=== PATIENT | female | born 1950 | race Caucasian/White ===

== ENCOUNTER 2016-12-10 06:19 | Emergency (ER) | payer MEDICARE, OTHER ==
[~2016-12-10] VITALS: Ht 152.4 cm; Wt 115.0 kg
[2016-12-10 06:21] VITALS: BP 128/67; PULSE 85; RESP 16; TEMP 98.1; O2SAT 96
--- NOTE | 2016-12-10 08:10 | RADRPT ---
EXAM DATE/TIME: 12/10/2016 07:34 [facility] COMPARISON: No previous studies available for comparison. INDICATIONS : Right leg pain. MEDICAL HISTORY : Hypertension. Hearing loss. SURGICAL HISTORY : None. ENCOUNTER: Initial ACUITY: 1 day PAIN SCORE: 10/10 LOCATION: Right leg. TECHNIQUE: Venous ultrasound of the leg was performed from the inguinal ligament to the proximal calf. Real-natacha e, color Doppler and spectral tracing, compression and augmentation techniques were used. FINDINGS: There is normal compressibility of the deep venous system from the inguinal region to the proximal ca lf. No echogenic clot is seen in the lumen of the common femoral, femoral, popliteal, and posterior tibial veins. There is a normal response of the venous system to proximal and distal augmentation an d respiration. CONCLUSION: No evidence of deep venous thrombosis within the right lower extremity. Burton Booker MD on December 10, 2016 at 8:08 Board Certified Radiologist. This report was verified electronically.
--- NOTE | 2016-12-10 08:20 | PD ---
HPI Chief Complaint: Pain: Acute or Chronic Time Seen by Provider: 06:52 Travel History International Travel<30 days: No Contact w/Intl Traveler<30days: No Traveled to known affect area: No History of Present Illness HPI 66-year-old female arrives complaining of right lower leg pain for about 8 hours. There is a twisting-type quality primarily in the lower tib-fib area and in the region of the ankle mortise. She states it can be quite severe. She is able to ambulate however painful. She denies any excessive use or recent trauma. She has a history of arthritis and ibuprofen has not been much use at home. She was recently started on nabumetone by Dr Ta, which has offered minimal help. No fever. No history DVT. She reports the history of arthritis based on exam and history however denies any imaging history. PFSH Past Medical History Diminished Hearing: Yes ([facility]) Hypertension: Yes Tetanus Vaccination: Unknown ?: Not : 2 Para: 2 Past Surgical History Surgical History: No Previous Surgery Social History Alcohol Use: Yes ("VERY LIGHT") Tobacco Use: No Substance Use: No Allergies-Medications (Allergen,Severity, Reaction): Coded Allergies: Sulfa (Verified Allergy, Intermediate, 12/10/16) Reported Meds & Prescriptions Reported Meds & Active Scripts Active Lortab (Hydrocodone-Acetaminophen) 5-325 Mg Tab 1-2 Tab PO Q6H PRN Reported Atorvastatin (Atorvastatin Calcium) 10 Mg Tab 10 Mg PO HS Levothyroxine (Levothyroxine Sodium) 50 Mcg Tab 50 Mcg PO DAILY Pantoprazole (Pantoprazole Sodium) 20 Mg Tab 20 Mg PO DAILY Nabumetone 500 Mg Tab 500 Mg PO BID Lisinopril-Hctz 20-25 Mg Tab 1 Tab PO DAILY Review of Systems Except as stated in HPI: all other systems reviewed are Neg General / Constitutional: No: Fever Musculoskeletal: Positive: Pain Physical Exam Narrative GENERAL: 66-year-old female pleasant well-nourished well-developed ambulatory SKIN: Focused skin assessment warm/dry. HEAD: Atraumatic. Normocephalic. EYES: Pupils equal and round. No scleral icterus. No injection or drainage. ENT: No nasal bleeding or discharge. Mucous membranes pink and moist. NECK: Trachea midline. No JVD. CARDIOVASCULAR: Regular rate and rhythm. No murmur appreciated. RESPIRATORY: No accessory muscle use. Clear to auscultation. Breath sounds equal bilaterally. GASTROINTESTINAL: Abdomen soft, non-tender, nondistended. Hepatic and splenic margins not palpable. MUSCULOSKELETAL: No obvious deformities. No clubbing. No cyanosis. Right lower extremity appears to same his left lower extremity. There is no erythema induration crepitus warmth or asymmetry. Dorsalis pedis pulses are 2+ bilaterally. Area of maximal pain is along the anterolateral distal right tib- fib area and overlying the region of the dorsal lateral foot at about the fifth metatarsal. NEUROLOGICAL: Awake and alert. No obvious cranial nerve deficits. Motor grossly within normal limits. Normal speech. PSYCHIATRIC: Appropriate mood and affect; insight and judgment normal. Data Data Last Documented VS Vital Signs Date Time Temp Pulse Resp B/P Pulse Ox O2 Delivery O2 Flow Rate FiO2 12/10/16 06:21 98.1 85 16 128/67 96 Room Air Vital signs reviewed Orders Ankle, Complete ([id number]) (12/10/16 07:15) Foot, Complete ([id number]) (12/10/16 07:15) Tibia/Fibula (Ap/Lat) (12/10/16 07:15) Ice/Cold Pack (12/10/16 07:15) Us Leg Venous Doppler (12/10/16 ) Acetamin-Hydrocod 325-7.5 Mg (Meherrin 7.5 (12/10/16 08:30) MDM Medical Decision Making Medical Screen Exam Complete: Yes Emergency Medical Condition: Yes Differential Diagnosis Hairline fracture, DVT, arthritis, infection, arteriovenous disease, neuropathy Narrative Course RLE Duplex normal. Plain films of the tib-fib ankle and foot reveals soft tissue swelling without fracture. Results were discussed with patient. She is quite agreeable with our plan including pain control follow-up with podiatry. Pain control, RICE therapy, f/u podiatry Diagnosis Primary Impression: Right leg pain Additional Impression: Right foot pain Referrals: Delma Collazo DPM 2 days Primary Care Physician 2 days Additional Instructions: You have a choice when it comes to health care, and we are glad that you chose [facility]. Hopefully, we have met your expectations on today's visit. You are welcome to return to [facility] at any time, as we are committed to meeting the health care needs of our community. Med/Other Pt SpecificInfo: Prescription(s) given Scripts Hydrocodone-Acetaminophen (Lortab)5-325 Mg Tab1-2 Tab PO Q6H PRN (PAIN SCALE 6 TO 10) #20 TAB Ref 0 Prov:Ki Alex MD 12/10/16 Disposition: 01 DISCHARGE HOME Condition: Stable Ki Alex MD Dec 10, 2016 08:20
[2016-12-10] MEDS ORDERED: ACETAMINOPHEN/HYDROcodone 325 MG/7.5 MG TAB PO ONE (08:30)
[2016-12-10] MEDS ORDERED: LEVO50TA4 PO (08:35)
[2016-12-10] MEDS ORDERED: LISI20TA3 PO (08:35)
[2016-12-10] MEDS ORDERED: PANT20TA2 PO (08:35)
[2016-12-10] MEDS ORDERED: ATOR10TA15 PO (08:35)
[2016-12-10] MEDS ORDERED: NABU1TAB37 PO (08:35)
[2016-12-10] MEDS ORDERED: HYDR-3533 PO ×2 (09:02→09:25)
--- NOTE | 2016-12-10 09:43 | RADRPT ---
EXAM DATE/TIME: 12/10/2016 08:20 [facility] COMPARISON: No previous studies available for comparison. INDICATIONS : Right leg pain, no injury. MEDICAL HISTORY : Hypertension. SURGICAL HISTORY : None. ENCOUNTER: Initial ACUITY: 1 day PAIN SCORE: 9/10 LOCATION: Right lower leg FINDINGS: There is generalized soft tissue swelling without radiopaque foreign body or fracture. CONCLUSION: Generalized soft tissue swelling. Vijay Clarke MD FACR on December 10, 2016 at 9:40 Board Certified Radiologist. This report was verified electronically.
--- NOTE | 2016-12-10 09:44 | RADRPT ---
EXAM DATE/TIME: 12/10/2016 08:20 [facility] COMPARISON: No previous studies available for comparison. INDICATIONS : Right ankle pain, no injury. MEDICAL HISTORY : Hypertension. SURGICAL HISTORY : None. ENCOUNTER: Initial ACUITY: 1 day PAIN SCORE: 10/10 LOCATION: Right lateral ankle FINDINGS: Generalized soft tissue swelling is evident with mild degenerative changes. There is no radiopaque f oreign body or fracture. CONCLUSION: Soft tissue swelling without fracture. Vijay Clarke MD FACR on December 10, 2016 at 9:42 Board Certified Radiologist. This report was verified electronically.
--- NOTE | 2016-12-10 09:48 | RADRPT ---
EXAM DATE/TIME: 12/10/2016 08:21 [facility] COMPARISON: No previous studies available for comparison. INDICATIONS : Right foot pain, no injury. MEDICAL HISTORY : None. SURGICAL HISTORY : None. ENCOUNTER: Initial ACUITY: 1 day PAIN SCORE: 7/10 LOCATION: Right lateral foot FINDINGS: Moderate soft tissue swelling with degenerative changes. Fractures are not appreciated. CONCLUSION: Soft tissue swelling, negative for fracture. Vijay Clarke MD FACR on December 10, 2016 at 9:44 Board Certified Radiologist. This report was verified electronically.
== END 2016-12-10 09:38 | disposition home or self-care (01) ==
LOC: NEPC 06:19
DX: M79.661 Pain in right lower leg (principal); M79.671 Pain in right foot; I10 Essential (primary) hypertension; Z79.899 Other long term (current) drug therapy; Z88.2 Allergy status to sulfonamides
CPT/HCPCS: 73590; 73610; 73630; 93971

== ENCOUNTER 2017-06-02 18:32 | Inpatient (IN) | payer MEDICARE, MEDICAID ==
[~2017-06-02] VITALS: Ht 157.5 cm; Wt 123.4 kg
[~2017-06-02 18:32] MED LIST: ATOR10TA15 PO; HYDR-3533 PO; LEVO50TA4 PO; LISI20TA3 PO; NABU1TAB37 PO; PANT20TA2 PO
[2017-06-02 18:47] VITALS: BP 140/63; PULSE 107; RESP 18; TEMP 102.4; O2SAT 96
[2017-06-02] MEDS ORDERED: SODIUM CHLOR 0.9% 1000 ML INJ 1,000 ML IV ONE ×2 (18:50)
[2017-06-02] MEDS ORDERED: SODIUM CHLOR 0.9% 1000 ML INJ 700 ML IV ONE (18:50)
[2017-06-02] MEDS ORDERED: ACETAMINOPHEN 325 MG TAB PO ONE (19:00)
--- NOTE | 2017-06-02 19:01 | PD ---
HPI Chief Complaint: Cold / Flu Symptoms Time Seen by Provider: 18:45 Travel History International Travel<30 days: No Contact w/Intl Traveler<30days: No Traveled to known affect area: No History of Present Illness HPI The patient is a 66-year-old female who presents emergency department for subjective fevers and chills. The patient states her symptoms started yesterday was a generalized malaise, fatigue, and subjective fevers. The patient then developed chills. She does complain of mild dysuria, a mildly sore throat with a lesion on the superior right aspect of the oropharynx, and mild shortness of breath. The patient also complains of diffuse body aches. The patient does have a history of rheumatoid arthritis for which she takes gabapentin. The patient does note subjective fevers but has not checked her temperature with a thermometer. She does note nausea and vomiting, with several episodes of vomiting today. She denies any diarrhea, had a normal bowel movement earlier today. She does complain of mild epigastric pain that started after vomiting. She does have a previous history of cholecystectomy. Symptoms are moderate without any alleviating or exacerbating factors. She did not receive an influenza vaccination this year. She quit smoking 40 years ago. [facility] Past Medical History Diminished Hearing: Yes ([facility]) Hypertension: Yes : 2 Para: 2 Social History Alcohol Use: Yes ("VERY LIGHT") Tobacco Use: No Substance Use: No Allergies-Medications (Allergen,Severity, Reaction): Coded Allergies: Sulfa (Sulfonamide Antibiotics) (Unverified Allergy, Intermediate, ) fish oil (Verified Allergy, Intermediate, 06/02/17) Reported Meds & Prescriptions Reported Meds & Active Scripts Active Reported Gabapentin 400 Mg Cap 400 Cap PO QID Levothyroxine (Levothyroxine Sodium) 50 Mcg Tab 50 Mcg PO DAILY Pantoprazole (Pantoprazole Sodium) 20 Mg Tab 20 Mg PO DAILY Nabumetone 500 Mg Tab 500 Mg PO BID Lisinopril-Hctz 20-25 Mg Tab 1 Tab PO DAILY Review of Systems Except as stated in HPI: all other systems reviewed are Neg General / Constitutional: Positive: Fever, Chills HENT: Positive: Sore Throat Cardiovascular: Positive: Chest Pain or Discomfort Respiratory: Positive: Cough, Shortness of Breath Gastrointestinal: Positive: Nausea, Vomiting, Abdominal Pain (mild epigastric pain after vomiting), No: Diarrhea Genitourinary: Positive: Dysuria Musculoskeletal: Positive: Myalgias, Weakness Skin: No Rash Neurologic: No: Focal Abnormalities, Headache Physical Exam Narrative GENERAL: Awake, alert, pleasant 66-year-old female who appears her stated age and is in no acute respiratory distress. SKIN: Focused skin assessment warm/dry. HEAD: Atraumatic. Normocephalic. EYES: Pupils equal and round. No scleral icterus. No injection or drainage. ENT: No nasal bleeding or discharge. No visible teeth. Lesion on the superior right oropharynx which is slightly erythematous with a clear vesicle in the center. NECK: Trachea midline. No JVD. CARDIOVASCULAR: Regular, tachycardic with a heart rate of 105. RESPIRATORY: No accessory muscle use. Diminished breath sounds in the bases. GASTROINTESTINAL: Abdomen soft, obese, mild epigastric tenderness. Negative Olivo's. Negative McBurney's. Back: No CVA tenderness. MUSCULOSKELETAL: No obvious deformities. No clubbing. No cyanosis. No edema. NEUROLOGICAL: Awake and alert. No obvious cranial nerve deficits. Motor grossly within normal limits. Normal speech. PSYCHIATRIC: Appropriate mood and affect; insight and judgment normal. Data Data Last Documented VS Vital Signs Date Time Temp Pulse Resp B/P (MAP) Pulse Ox O2 Delivery O2 Flow Rate FiO2 06/02/17 21:10 101.7 102 18 128/57 (80) 97 Nasal Cannula 2.00 Orders Orders Sepsis Workup Initiated (06/02/17 ) Electrocardiogram (06/02/17 18:50) Complete Blood Count With Diff (06/02/17 18:50) Comprehensive Metabolic Panel (06/02/17 18:50) Lactic Acid Sepsis Protocol (06/02/17 18:50) Lipase (06/02/17 18:50) Ckmb (Isoenzyme) Profile (06/02/17 18:50) Troponin I (06/02/17 18:50) Urinalysis - C+S If Indicated (06/02/17 18:50) Influenzae A/B Antigen (06/02/17 18:50) Blood Culture (06/02/17 18:50) Chest, Single Ap (06/02/17 18:50) Blood Gas Venous (Vbg) (06/02/17 18:50) Blood Glucose (06/02/17 18:50) Ecg Monitoring (06/02/17 18:50) Iv Access Insert/Monitor (06/02/17 18:50) Oximetry (06/02/17 18:50) Oxygen Administration (06/02/17 18:50) Acetaminophen (Tylenol) (06/02/17 19:00) Sodium Chlor 0.9% 1000 Ml Inj (Ns 1000 M (06/02/17 18:50) Sodium Chlor 0.9% 1000 Ml Inj (Ns 1000 M (06/02/17 18:50) Sodium Chlor 0.9% 1000 Ml Inj (Ns 1000 M (06/02/17 18:50) Ct Abd/Pel W Iv Contrast(Rout) (06/02/17 ) CKMB (06/02/17 19:50) CKMB% (06/02/17 19:50) Iohexol 350 Inj (Omnipaque 350 Inj) (06/02/17 21:48) Labs Laboratory Tests Test 06/02/17 19:50 06/02/17 19:53 06/02/17 20:30 White Blood Count 23.5 TH/MM3 Red Blood Count 4.65 MIL/MM3 Hemoglobin 13.6 GM/DL Hematocrit 41.8 % Mean Corpuscular Volume 90.0 FL Mean Corpuscular Hemoglobin 29.2 PG Mean Corpuscular Hemoglobin Concent 32.4 % Red Cell Distribution Width 13.6 % Platelet Count 180 TH/MM3 Mean Platelet Volume 8.7 FL Neutrophils (%) (Auto) 89.6 % Lymphocytes (%) (Auto) 3.8 % Monocytes (%) (Auto) 6.1 % Eosinophils (%) (Auto) 0.3 % Basophils (%) (Auto) 0.2 % Neutrophils # (Auto) 21.1 TH/MM3 Lymphocytes # (Auto) 0.9 TH/MM3 Monocytes # (Auto) 1.4 TH/MM3 Eosinophils # (Auto) 0.1 TH/MM3 Basophils # (Auto) 0.1 TH/MM3 CBC Comment DIFF FINAL Differential Comment Blood Urea Nitrogen 18 MG/DL Creatinine 1.27 MG/DL Random Glucose 99 MG/DL Total Protein 7.6 GM/DL Albumin 3.4 GM/DL Calcium Level 8.9 MG/DL Alkaline Phosphatase 95 U/L Aspartate Amino Transf (AST/SGOT) 41 U/L Alanine Aminotransferase (ALT/SGPT) 34 U/L Total Bilirubin 0.6 MG/DL Sodium Level 137 MEQ/L Potassium Level 3.2 MEQ/L Chloride Level 101 MEQ/L Carbon Dioxide Level 27.0 MEQ/L Anion Gap 9 MEQ/L Estimat Glomerular Filtration Rate 42 ML/MIN Lactic Acid Level 2.1 mmol/L Total Creatine Kinase 150 U/L Creatine Kinase MB 1.5 NG/ML Troponin I LESS THAN 0.02 NG/ML Lipase 100 U/L Blood Gas Puncture Site IV Blood Gas Patient Temperature 98.6 Venous Blood pH 7.38 Venous Blood Partial Pressure CO2 52 mmHg Venous Blood Partial Pressure O2 22 mmHg Venous Blood HCO3 30 mmol/L Venous Blood Oxygen Saturation 31 % Venous Blood Oxygen Content 5.9 Vol % Venous Blood Base Excess 5.1 mmol/L Oxygen Delivery Device NASAL CANNULA Blood Gas Liter Flow 2 L/M Urine Color YELLOW Urine Turbidity CLEAR Urine pH 5.0 Urine Specific [place] 1.011 Urine Protein NEG mg/dL Urine Glucose (UA) NEG mg/dL Urine Ketones NEG mg/dL Urine Occult Blood NEG Urine Nitrite NEG Urine Bilirubin NEG Urine Urobilinogen LESS THAN 2.0 MG/DL Urine Leukocyte Esterase NEG Urine RBC 1 /hpf Urine WBC LESS THAN 1 /hpf Urine Hyaline Casts 1 /lpf Urine Granular Casts 1 /lpf Urine Mucus FEW /lpf Microscopic Urinalysis Comment CATH-CULT NOT IND MDM Medical Decision Making Medical Screen Exam Complete: Yes Emergency Medical Condition: Yes Medical Record Reviewed: Yes Interpretation(s) EKG reveals normal sinus rhythm with a rate in 91. No ischemic changes or ectopy noted. Last Impressions Chest X-Ray 06/02/17 1850 Signed Impressions: Service Date/Time: May 19:22 - CONCLUSION: 1. No infiltrates seen. 2. Cardiomegaly. Jose L Corley MD Laboratory Tests Test 06/02/17 19:50 06/02/17 19:53 06/02/17 20:30 White Blood Count 23.5 TH/MM3 Red Blood Count 4.65 MIL/MM3 Hemoglobin 13.6 GM/DL Hematocrit 41.8 % Mean Corpuscular Volume 90.0 FL Mean Corpuscular Hemoglobin 29.2 PG Mean Corpuscular Hemoglobin Concent 32.4 % Red Cell Distribution Width 13.6 % Platelet Count 180 TH/MM3 Mean Platelet Volume 8.7 FL Neutrophils (%) (Auto) 89.6 % Lymphocytes (%) (Auto) 3.8 % Monocytes (%) (Auto) 6.1 % Eosinophils (%) (Auto) 0.3 % Basophils (%) (Auto) 0.2 % Neutrophils # (Auto) 21.1 TH/MM3 Lymphocytes # (Auto) 0.9 TH/MM3 Monocytes # (Auto) 1.4 TH/MM3 Eosinophils # (Auto) 0.1 TH/MM3 Basophils # (Auto) 0.1 TH/MM3 CBC Comment DIFF FINAL Differential Comment Blood Urea Nitrogen 18 MG/DL Creatinine 1.27 MG/DL Random Glucose 99 MG/DL Total Protein 7.6 GM/DL Albumin 3.4 GM/DL Calcium Level 8.9 MG/DL Alkaline Phosphatase 95 U/L Aspartate Amino Transf (AST/SGOT) 41 U/L Alanine Aminotransferase (ALT/SGPT) 34 U/L Total Bilirubin 0.6 MG/DL Sodium Level 137 MEQ/L Potassium Level 3.2 MEQ/L Chloride Level 101 MEQ/L Carbon Dioxide Level 27.0 MEQ/L Anion Gap 9 MEQ/L Estimat Glomerular Filtration Rate 42 ML/MIN Lactic Acid Level 2.1 mmol/L Total Creatine Kinase 150 U/L Creatine Kinase MB 1.5 NG/ML Troponin I LESS THAN 0.02 NG/ML Lipase 100 U/L Blood Gas Puncture Site IV Blood Gas Patient Temperature 98.6 Venous Blood pH 7.38 Venous Blood Partial Pressure CO2 52 mmHg Venous Blood Partial Pressure O2 22 mmHg Venous Blood HCO3 30 mmol/L Venous Blood Oxygen Saturation 31 % Venous Blood Oxygen Content 5.9 Vol % Venous Blood Base Excess 5.1 mmol/L Oxygen Delivery Device NASAL CANNULA Blood Gas Liter Flow 2 L/M Urine Color YELLOW Urine Turbidity CLEAR Urine pH 5.0 Urine Specific [place] 1.011 Urine Protein NEG mg/dL Urine Glucose (UA) NEG mg/dL Urine Ketones NEG mg/dL Urine Occult Blood NEG Urine Nitrite NEG Urine Bilirubin NEG Urine Urobilinogen LESS THAN 2.0 MG/DL Urine Leukocyte Esterase NEG Urine RBC 1 /hpf Urine WBC LESS THAN 1 /hpf Urine Hyaline Casts 1 /lpf Urine Granular Casts 1 /lpf Urine Mucus FEW /lpf Microscopic Urinalysis Comment CATH-CULT NOT IND Last Impressions Chest X-Ray 06/02/17 1850 Signed Impressions: Service Date/Time: May 19:22 - CONCLUSION: 1. No infiltrates seen. 2. Cardiomegaly. Jose L Corley MD Abdomen/Pelvis CT 06/02/17 0000 Signed Impressions: Service Date/Time: May 21:36 - CONCLUSION: 1. No dilated loops of small or large bowel. 2. Nonspecific minimally prominent para-aortic lymph nodes. 3. Prominent bilateral fluid structures in the renal sinus bilaterally. Differential considerations include parapelvic cysts in bilateral hydronephrosis without stones. The patient will be brought back for delayed imaging of the kidneys to help differentiate. An addendum will be rendered. Jose L Corley MD Differential Diagnosis Differential diagnosis includes influenza, pneumonia, pyelonephritis, UTI, viral syndrome, sepsis, dehydration. Narrative Course IV was established, labs are drawn and sent, and the patient was placed on cardiac telemetry monitoring and continuous pulse oximetry monitoring. EKG was ordered and interpreted. Chest x-ray was obtained. UA was sent to lab. Influenza screen was sent to lab. The patient was administered Tylenol 650 mg orally and 3 L of IV fluids. VBG was obtained. The patient's white count was 23.5. Lactic acid was 2.1. UA is unremarkable. Influenza screen is negative. Chest x-ray reveals no evidence of pneumonia. Therefore, CT of the abdomen and pelvis was ordered to evaluate for intra-abdominal process. The patient does meet SIRS criteria. CT of the abdomen and pelvis reveals no acute source of infection. The patient does meet SIRS criteria, is immunocompromised with a history of rheumatoid arthritis, therefore, will be 23 hour observation until blood cultures are resulted. The patient is comfortable with this plan of care and disposition. The patient will be minutes the on-call medical service. The patient has been covered with Rocephin and Zithromax to cover for possible early pneumonia. Sepsis Criteria SIRS Criteria (2 or more): Temp > 100.9 or < 96.8, Heart rate over 90, WBC > 43374, < 4000 or > 10% bands Condition: Stable Fredis Casey MD Jun 02, 2017 19:01
[2017-06-02 19:06] VITALS: RESP 18; O2SAT 97
[2017-06-02 19:25] VITALS: O2SAT 97
--- NOTE | 2017-06-02 19:42 | RADRPT ---
EXAM DATE/TIME: 06/02/2017 19:22 [facility] COMPARISON: No previous studies available for comparison. INDICATIONS : Fever MEDICAL HISTORY : Hypertension. SURGICAL HISTORY : None. ENCOUNTER: Initial ACUITY: 4 - 6 days PAIN SCORE: 3/10 LOCATION: Bilateral chest FINDINGS: A single frontal view of the chest demonstrates the lungs to be symmetrically aerated and clear. The heart is enlarged. Both hemidiaphragms and the central bronchopulmonary markings are fairly well de lineated. CONCLUSION: 1. No infiltrates seen. 2. Cardiomegaly. Jose L Corley MD on June 02, 2017 at 19:39 Board Certified Radiologist. This report was verified electronically.
[2017-06-02] MEDS ORDERED: GABA400C5 PO (20:21)
[2017-06-02 20:24] LABS: AUTOMATED NEUTROPHIL # 21.1 TH/MM3 (1.8-7.7); BASOPHIL # 0.1 TH/MM3 (0-0.2); BASOPHIL % 0.2 % (0.0-2.0); EOSINOPHIL # 0.1 TH/MM3 (0-0.4); EOSINOPHIL % 0.3 % (0.0-4.0); HEMATOCRIT 41.8 % (35.0-46.0); HEMOGLOBIN 13.6 GM/DL (11.6-15.3); LYMPH % 3.8 % (9.0-44.0); LYMPHOCYTE # 0.9 TH/MM3 (1.0-4.8); MEAN CORPUSCULAR HEMOGLOBIN 29.2 PG (27.0-34.0); MEAN CORPUSCULAR HGB CONC 32.4 % (32.0-36.0); MEAN PLATELET VOLUME 8.7 FL (7.0-11.0); MONO % 6.1 % (0.0-8.0); MONOCYTE # 1.4 TH/MM3 (0-0.9); NEUT % 89.6 % (16.0-70.0); PLATELET COUNT 180 TH/MM3 (150-450); RED BLOOD COUNT 4.65 MIL/MM3 (4.00-5.30); RED CELL DISTRIBUTION WIDTH 13.6 % (11.6-17.2); WHITE BLOOD COUNT 23.5 TH/MM3 (4.0-11.0)
[2017-06-02 20:34] LABS: LACTIC ACID SEPSIS PROTOCOL 2.1 mmol/L (0.4-2.0)
[2017-06-02 20:41] LABS: ALBUMIN 3.4 GM/DL (3.4-5.0); AST (GOT) 41 U/L (15-37); BLOOD UREA NITROGEN 18 MG/DL (7-18); CALCIUM 8.9 MG/DL (8.5-10.1); CHLORIDE 101 MEQ/L (98-107); CREATININE 1.27 MG/DL (0.50-1.00); GLOMERULAR FILTRATION RATE 42 ML/MIN (>89); GLUCOSE,RANDOM 99 MG/DL (74-106); LIPASE 100 U/L (73-393); SODIUM (NA) 137 MEQ/L (136-145)
[2017-06-02 20:42] LABS: ALT (GPT) 34 U/L (10-53)
[2017-06-02 20:46] LABS: ALKALINE PHOSPHATASE 95 U/L (45-117); TOTAL BILIRUBIN ADULT 0.6 MG/DL (0.2-1.0); TOTAL PROTEIN 7.6 GM/DL (6.4-8.2); TROPONIN I LESS THAN 0.02 NG/ML (0.02-0.05)
[2017-06-02 20:56] LABS: BILIRUBIN, URINE NEG (NEG); BLOOD, URINE NEG (NEG); GLUCOSE,URINE NEG (NEG); HYALINE CAST, URINE 1 /lpf (RARE); KETONE, URINE NEG (NEG); MUCUS URINE FEW /lpf (OCC); NITRITE,URINE NEG (NEG); URINE COLOR YELLOW (YELLW/STRAW); URINE LEUKOCYTE ESTERASE NEG (NEG)
[2017-06-02 21:10] VITALS: BP 128/57; PULSE 102; RESP 18; TEMP 101.7; O2SAT 97
[2017-06-02] MEDS ORDERED: IOHEXOL 350 MG/ML 10 ML VIAL (for RAD DIAG) IVCONTRAST ONE (21:48)
--- NOTE | 2017-06-02 21:59 | RADRPT ---
EXAM DATE/TIME: 06/02/2017 21:36 This report includes an Addendum and supersedes previous reports for this exam. [facility] COMPARISON: No previous studies available for comparison. INDICATIONS : Fever, body aches, and dysuria. IV CONTRAST: 70 cc Omnipaque 350 (iohexol) IV ORAL CONTRAST: No oral contrast ingested. RADIATION DOSE: 16.86 CTDIvol (mGy) MEDICAL HISTORY : Hypertension. SURGICAL HISTORY : section. ENCOUNTER: Initial ACUITY: 1 day PAIN SCALE: 8/10 LOCATION: abdomen TECHNIQUE: Volumetric scanning of the abdomen and pelvis was performed. Using automated exposure control and ad justment of the mA and/or kV according to patient size, radiation dose was kept as low as reasonably achievable to obtain optimal diagnostic quality images. DICOM format image data is available electro nically for review and comparison. FINDINGS: LOWER LUNGS: The visualized lower lungs are clear. LIVER: Homogeneous density without lesion. There is no dilation of the biliary tree. Cholecystectomy. SPLEEN: Normal size without lesion. PANCREAS: Within normal limits. KIDNEYS: There are prominent bilateral low density structures in the collecting system and extrarenal pelvis b ilaterally, symmetric in appearance with abrupt transition point at the proximal ureters bilaterally. There is no contrast in the structures and cannot differentiate between parapelvic cysts and hydron ephrosis. No calcified stones. The ureters are normal in dimension. ADRENAL GLANDS: Within normal limits. VASCULAR: There is no aortic aneurysm. BOWEL/MESENTERY: No dilated loops of small or large bowel. ABDOMINAL WALL: Within normal limits. RETROPERITONEUM: There are a few scattered periaortic lymph nodes which measure up to 1.5 cm, nonspecific in appearanc e. No evidence of deep pelvic adenopathy or iliac adenopathy. BLADDER: Watson catheter in a nondistended bladder. REPRODUCTIVE: The uterus is anteverted. No evidence of free fluid. INGUINAL: Bilateral inguinal lymph nodes measure up to 1.6 cm in dimension, upper limits normal. MUSCULOSKELETAL: Small bone islands in the left medial iliac bone, and right posterior superior acetabular region. CONCLUSION: 1. No dilated loops of small or large bowel. 2. Nonspecific minimally prominent para-aortic lymph nodes. 3. Prominent bilateral fluid structures in the renal sinus bilaterally. Differential considerations include parapelvic cysts in bilateral hydronephrosis without stones. The patient will be brought [facility] for delayed imaging of the kidneys to help differentiate. An addendum will be rendered. Jose L Corley MD on June 02, 2017 at 21:50 Board Certified Radiologist. This report was verified electronically. ADDENDUM: The patient was brought back for delayed scanning of the kidneys. Axial and coronal reconstruction i mages were performed and demonstrate a normal dimension to the collecting system bilaterally. The lo w density areas seen in the renal sinus and extrarenal region are confirmed to be multiple parapelvic cysts. Jose L Corley MD on June 02, 2017 at 22:26 Board Certified Radiologist. This report was verified electronically.
[2017-06-02] MEDS ORDERED: AZITHROMYCIN INJ 500 MG in SODIUM CHLOR 0.9% 250 ML INJ 250 ML IV ONE (22:15)
[2017-06-02] MEDS ORDERED: cefTRIAXone INJ 1,000 MG in SODIUM CHLORIDE 0.9% INJ 100 ML IV ONE (22:15)
[2017-06-02] MEDS ORDERED: LACTULOSE SYRUP 20 GM/30 ML CUP PO PRN (22:30)
[2017-06-02] MEDS ORDERED: ONDANSETRON HCL 4 MG/2 ML VIAL IVP PRN (22:30)
[2017-06-02] MEDS ORDERED: SODIUM CHLORIDE 0.9% FLUSH 10 ML FLUSH IV FLUSH PRN (22:30)
[2017-06-02] MEDS ORDERED: BISACODYL 10 MG SUPP RECTAL PRN (22:30)
[2017-06-02] MEDS ORDERED: ACETAMINOPHEN 325 MG TAB PO PRN (22:30)
[2017-06-02] MEDS ORDERED: ACETAMINOPHEN/HYDROcodone 325 MG/5 MG TAB PO PRN (22:30)
[2017-06-02] MEDS ORDERED: MAGNESIUM HYDROXIDE SUSP 30 ML CUP PO PRN (22:30)
[2017-06-02] MEDS ORDERED: SENNOSIDES 8.6 MG TAB PO PRN (22:30)
--- NOTE | 2017-06-02 22:33 | HHI.HP ---
HPI Service [facility] Primary Care Physician Phil Ta M.D. Admission Diagnosis SIRS, febrile illness, leukocytosis Diagnoses: (1) SIRS (systemic inflammatory response syndrome) Diagnosis: Principal (2) Pharyngitis Diagnosis: Principal (3) Renal insufficiency Diagnosis: Principal (4) Hypokalemia Diagnosis: Principal (5) HTN (hypertension) Diagnosis: Principal Travel History International Travel<30 Days: No Contact w/Intl Traveler <30 Da: No Traveled to Known Affected Are: No History of Present Illness This is a 66-year-old female with a PMH of HTN, Rheumatoid Arthritis and Hypothyroidism who presented to ER with complaints of generalized weakness addition to subjective fevers/chills and sore throat x1 day. Denies cough, chest pain or sick contacts. On arrival, BP 140/63, HR 107, O2 sat 96% on RA, Temp 102.4. WBC 23.5. K+ 3.2. Creatinine 1.27, no previous labs for comparison. Lactic Acid 2.1. Pulmonary negative. UA negative. CXR with no acute infiltrates. CT Abd/Pelvis nonspecific minimally prominent periaortic lymph nodes, bilateral fluid structures renal sinuses bilaterally, possibly hydronephrosis, additional imaging showing no evidence of hydronephrosis. Influenza negative. S/p IVF, Rocephin/Zithro in ER. Review of Systems Except as stated in HPI: all other systems reviewed are Neg ROS: 14 point review of systems otherwise negative. Past Family Social History Past Medical History PMH: HTN, Rheumatoid Arthritis and Hypothyroidism Past Surgical History PAST SURGICAL HISTORY: Cholecystectomy, Allergies: Coded Allergies: Sulfa (Sulfonamide Antibiotics) (Unverified Allergy, Intermediate, ) fish oil (Verified Allergy, Intermediate, 06/02/17) Family History PAST FAMILY HISTORY: Reviewed. No h/o DM or CAD Social History PAST SOCIAL HISTORY: Occasional alcohol. Negative for tobacco or drugs. Physical Exam Vital Signs Vital Signs Date Time Temp Pulse Resp B/P (MAP) Pulse Ox O2 Delivery O2 Flow Rate FiO2 06/02/17 21:10 101.7 102 18 128/57 (80) 97 Nasal Cannula 2.00 06/02/17 19:25 97 Nasal Cannula 2.00 06/02/17 19:08 (88) 06/02/17 19:06 97 Nasal Cannula 2.00 06/02/17 19:06 18 97 Nasal Cannula 2.00 06/02/17 18:59 94 Nasal Cannula 2.00 06/02/17 18:47 102.4 107 18 140/63 (88) 96 Physical Exam PE: GENERAL: Pleasant middle-aged white female in no acute distress. HEENT: PERRLA, EOMI. No scleral icterus or conjunctival pallor. No lid lag or facial droop. Pharyngeal erythema, no exudates noted, small vesicular lesion right. CARDIOVASCULAR: Regular rate and rhythm. No obvious murmurs to auscultation. No chest tenderness to palpation. RESPIRATORY: No obvious rhonchi or wheezing. Clear to auscultation. Breath sounds equal bilaterally. GASTROINTESTINAL: Abdomen soft, non-tender, nondistended. BS normal. MUSCULOSKELETAL: Extremities without clubbing, cyanosis, or edema. No obvious deformities. NEUROLOGICAL: Awake, alert and oriented x4. No focal neurologic deficits. Moving both upper and lower extremities spontaneously. Laboratory Laboratory Tests Test 06/02/17 19:50 06/02/17 19:53 06/02/17 20:30 White Blood Count 23.5 Red Blood Count 4.65 Hemoglobin 13.6 Hematocrit 41.8 Mean Corpuscular Volume 90.0 Mean Corpuscular Hemoglobin 29.2 Mean Corpuscular Hemoglobin Concent 32.4 Red Cell Distribution Width 13.6 Platelet Count 180 Mean Platelet Volume 8.7 Neutrophils (%) (Auto) 89.6 Lymphocytes (%) (Auto) 3.8 Monocytes (%) (Auto) 6.1 Eosinophils (%) (Auto) 0.3 Basophils (%) (Auto) 0.2 Neutrophils # (Auto) 21.1 Lymphocytes # (Auto) 0.9 Monocytes # (Auto) 1.4 Eosinophils # (Auto) 0.1 Basophils # (Auto) 0.1 CBC Comment DIFF FINAL Differential Comment Blood Urea Nitrogen 18 Creatinine 1.27 Random Glucose 99 Total Protein 7.6 Albumin 3.4 Calcium Level 8.9 Alkaline Phosphatase 95 Aspartate Amino Transf (AST/SGOT) 41 Alanine Aminotransferase (ALT/SGPT) 34 Total Bilirubin 0.6 Sodium Level 137 Potassium Level 3.2 Chloride Level 101 Carbon Dioxide Level 27.0 Anion Gap 9 Estimat Glomerular Filtration Rate 42 Lactic Acid Level 2.1 Total Creatine Kinase 150 Creatine Kinase MB 1.5 Troponin I LESS THAN 0.02 Lipase 100 Blood Gas Puncture Site IV Blood Gas Patient Temperature 98.6 Venous Blood pH 7.38 Venous Blood Partial Pressure CO2 52 Venous Blood Partial Pressure O2 22 Venous Blood HCO3 30 Venous Blood Oxygen Saturation 31 Venous Blood Oxygen Content 5.9 Venous Blood Base Excess 5.1 Oxygen Delivery Device NASAL CANNULA Blood Gas Liter Flow 2 Urine Color YELLOW Urine Turbidity CLEAR Urine pH 5.0 Urine Specific [place] 1.011 Urine Protein NEG Urine Glucose (UA) NEG Urine Ketones NEG Urine Occult Blood NEG Urine Nitrite NEG Urine Bilirubin NEG Urine Urobilinogen LESS THAN 2.0 Urine Leukocyte Esterase NEG Urine RBC 1 Urine WBC LESS THAN 1 Urine Hyaline Casts 1 Urine Granular Casts 1 Urine Mucus FEW Microscopic Urinalysis Comment CATH-CULT NOT IND Date/Time Source Procedure Growth Status 06/02/17 19:10 Blood Peripheral Aerobic Blood Culture Pending Received 06/02/17 19:10 Blood Peripheral Anaerobic Blood Culture Pending Received 06/02/17 19:10 Nasal Aspirate Influenza Types A,B Antigen (SHAHEED) - Final NEGATIVE FOR FLU A AND B ANTIGEN.... Complete Result Diagram: 06/02/17194906/02/171949 Caprini VTE Risk Assessment Caprini VTE Risk Assessment: No/Low Risk (score <= 1) Caprini Risk Assessment Model Point Value = 1 Point Value = 2 Point Value = 3 Point Value = 5 Age 41-60 Minor surgery BMI > 25 kg/m2 Swollen legs Varicose veins or History of unexplained or recurrent spontaneous Oral contraceptives or hormone replacement Sepsis (< 1 month) Serious lung disease, including pneumonia (< 1 month) Abnormal pulmonary function Acute myocardial infarction Congestive heart failure (< 1 month) History of inflammatory bowel disease Medical patient at bed rest Age 61-74 Arthroscopic surgery Major open surgery (> 45 min) Laparoscopic surgery (> 45 min) Malignancy Confined to bed (> 72 hours) Immobilizing plaster cast Central venous access Age >= 75 History of VTE Family history of VTE Factor V Leiden Prothrombin [id number] Lupus anticoagulant Anticardiolipin antibodies Elevated serum homocysteine Heparin-induced thrombocytopenia Other congenital or acquired thrombophilia Stroke (< 1 month) Elective arthroplasty Hip, pelvis, or leg fracture Acute spinal cord injury (< 1 month) Prophylaxis Regimen Total Risk Factor Score Risk Level Prophylaxis Regimen 0-1 Low Early ambulation 2 Moderate Order ONE of the following: *Sequential Compression Device (SCD) *Heparin 5000 units SQ BID 3-4 Higher Order ONE of the following medications: *Heparin 5000 units SQ TID *Enoxaparin/Lovenox 40 mg SQ daily (WT < 150 kg, CrCl > 30 mL/min) *Enoxaparin/Lovenox 30 mg SQ daily (WT < 150 kg, CrCl > 10-29 mL/min) *Enoxaparin/Lovenox 30 mg SQ BID (WT < 150 kg, CrCl > 30 mL/min) AND/OR *Sequential Compression Device (SCD) 5 or more Highest Order ONE of the following medications: *Heparin 5000 units SQ TID (Preferred with Epidurals) *Enoxaparin/Lovenox 40 mg SQ daily (WT < 150 kg, CrCl > 30 mL/min) *Enoxaparin/Lovenox 30 mg SQ daily (WT < 150 kg, CrCl > 10-29 mL/min) *Enoxaparin/Lovenox 30 mg SQ BID (WT < 150 kg, CrCl > 30 mL/min) AND *Sequential Compression Device (SCD) Assessment and Plan Problem List: (1) SIRS (systemic inflammatory response syndrome) ICD Code: R65.10 - Systemic inflammatory response syndrome (SIRS) of non- infectious origin without acute organ dysfunction (2) Pharyngitis ICD Code: J02.9 - Acute pharyngitis, unspecified (3) Renal insufficiency ICD Code: N28.9 - Disorder of kidney and ureter, unspecified (4) Hypokalemia ICD Code: E87.6 - Hypokalemia (5) HTN (hypertension) ICD Code: I10 - Essential (primary) hypertension Assessment and Plan A/P: 1. SIRS: Temp 102.4, HR 107, WBC 23, Lactic Acid 2.1. Source-unclear. U/a negative, CXR w/ no acute findings, images reviewed by me, CT Abd/Pelvis w/ no source of infection, images reviewed. Influenza negative. S/p Blood Cultures, IVF, Rocephin/Zithro in ER. Follow up cultures, continue w/ IVF, repeat Lactic Acid normalized. Likely viral etiology, start Tamiflu. 2. Pharyngitis: c/o sore throat, +pharyngeal erythema, no exudates. IVF, Cepacol, Tamiflu. 3. Renal Insufficiency: Creatinine 1.27, no previous labs for comparison, presumably new. IVF for hydration, repeat labs in am. 4. Hypokalemia: K+ 3.2, will replace and recheck labs in am. 5. HTN: BP controlled. On Lisinopril/HCTZ at home, will hold in light of renal insufficiency/dehydration. Monitor BP. 6. DVT Prophylaxis: SCD/Teds. 7. Social work for d/c planning as needed. 8. Case discussed w/ ER physician at length. Physician Certification 2 Midnight Certification Type: Admission for Inpatient Services Order for Inpatient Services The services are ordered in accordance with Medicare regulations or non- Medicare payer requirements, as applicable. In the case of services not specified as inpatient-only, they are appropriately provided as inpatient services in accordance with the 2-midnight benchmark. Estimated LOS (days): 2 days is the estimated time the patient will need to remain in the hospital, assuming treatment plan goals are met and no additional complications. Post-Hospital Plan: Not yet determined Marizol Gaines MD Jun 02, 2017 22:33
--- NOTE | 2017-06-02 23:29 | EKG ---
Date Performed: 06/02/2017 Time Performed: 19:34:20 PTAGE: 66 years EKG: Sinus rhythm ST/T WAVE CHANGES ANTERIORLY, CONSIDER ISCHEMIA NO PREVIOUS TRACING DOCTOR: Joe Alex Interpretating Date/Time 06/02/2017 23:28:11
[2017-06-02] MEDS ORDERED: BENZOCAINE-MENTHOL (SUGAR FREE) 15 MG-3.6 MG LOZENGE BUCCAL PRN (23:45)
[2017-06-03] VITALS (10 sets, daily range): BP systolic 91–130; BP diastolic 48–75; PULSE 78–92; RESP 18–20; TEMP 97.3–100.7; O2SAT 94–99
[2017-06-03] MEDS ORDERED: POTASSIUM CHLORIDE INJ 20 MEQ in SODIUM CHLORIDE 0.9% INJ 100 ML IV ONE ×2
[2017-06-03] MEDS: SODIUM CHLOR 0.9% 1000 ML INJ 1,000 ML IV SCH ×3 (01:30→20:07)
[2017-06-03] MEDS: OSELTAMIVIR PHOSPHATE 75 MG CAP PO SCH ×3 (02:02→20:14)
[2017-06-03] MEDS: MORPHINE SULFATE 2 MG/ML INJ IV PUSH PRN ×3 (02:03→18:26)
[2017-06-03] MEDS ORDERED: SODIUM CHLORID 0.9% 500 ML INJ 500 ML IV ONE (05:30)
[2017-06-03] MEDS: LEVOTHYROXINE SODIUM 50 MCG TAB PO SCH (05:50)
[2017-06-03] MEDS: SODIUM CHLORIDE 0.9% FLUSH 10 ML FLUSH IV FLUSH SCH ×2 (09:00→20:07)
[2017-06-03] MEDS ORDERED: INFLUENZA VIRUS VACCINE (QUADRIVALENT) 0.5 ML SYR IM ONE (09:00)
[2017-06-03] MEDS: NABUMETONE 500 MG TAB PO SCH ×2 (09:57→20:14)
[2017-06-03] MEDS: PANTOPRAZOLE SOD 20 MG DELAYED RELEASE TAB PO SCH (09:57)
[2017-06-03] MEDS: GABAPENTIN 400 MG CAP PO SCH ×4 (09:57→20:14)
[2017-06-03] MEDS: DOCUSATE SODIUM 50 MG/SENNA 8.6 MG TAB PO SCH ×2 (09:57→20:14)
[2017-06-03 10:30] LABS: AUTOMATED NEUTROPHIL # 23.1 TH/MM3 (1.8-7.7); BASOPHIL % 0.2 % (0.0-2.0); EOSINOPHIL % 0.1 % (0.0-4.0); HEMATOCRIT 33.9 % (35.0-46.0); HEMOGLOBIN 11.3 GM/DL (11.6-15.3); LYMPH % 4.2 % (9.0-44.0); LYMPHOCYTE # 1.1 TH/MM3 (1.0-4.8); MEAN CELL VOLUME 90.5 FL (80.0-100.0); MEAN CORPUSCULAR HEMOGLOBIN 30.3 PG (27.0-34.0); MEAN CORPUSCULAR HGB CONC 33.5 % (32.0-36.0); MONO % 4.4 % (0.0-8.0); MONOCYTE # 1.1 TH/MM3 (0-0.9); NEUT % 91.1 % (16.0-70.0); PLATELET COUNT 163 TH/MM3 (150-450); RED BLOOD COUNT 3.74 MIL/MM3 (4.00-5.30); RED CELL DISTRIBUTION WIDTH 13.6 % (11.6-17.2); WHITE BLOOD COUNT 25.4 TH/MM3 (4.0-11.0)
[2017-06-03 11:05] LABS: ALBUMIN 2.7 GM/DL (3.4-5.0); ALKALINE PHOSPHATASE 67 U/L (45-117); ALT (GPT) 31 U/L (10-53); AST (GOT) 30 U/L (15-37); BICARBONATE 24.3 MEQ/L (21.0-32.0); BLOOD UREA NITROGEN 27 MG/DL (7-18); CALCIUM 7.9 MG/DL (8.5-10.1); CHLORIDE 105 MEQ/L (98-107); CREATININE 1.18 MG/DL (0.50-1.00); GLOMERULAR FILTRATION RATE 46 ML/MIN (>89); GLUCOSE,RANDOM 114 MG/DL (74-106); SODIUM (NA) 137 MEQ/L (136-145); TOTAL BILIRUBIN ADULT 0.5 MG/DL (0.2-1.0); TOTAL PROTEIN 6.3 GM/DL (6.4-8.2)
[2017-06-03 11:25] LABS: BANDS 7 % (0-6); LYMPHOCYTES 13 % (9-44); METAMYELOCYTES 1 % (0-1); MONOCYTES 1 % (0-8); MYELOCYTES 1 % (0-0); NEUTROPHIL # MANUAL DIFF 21.8 TH/MM3 (1.8-7.7); POLYS (SEG NEUTROPHILS) 77 % (16-70); TOXIC GRANULATION 1+ (NORMAL); TOXIC VACUOLATION PRESENT (NONE SEEN)
--- NOTE | 2017-06-03 14:24 | HHI.PR ---
Subjective Remarks Feeling slightly better in her throat, complain of "I can't Pee "however denied any dysuria or burning, patient doesn't use oxygen at home however she is on 3 L nasal cannula now, she has some wheezing she denied history of smoking G had a temp of 100.7 and will be see increased to 25K Objective Vitals Vital Signs Date Time Temp Pulse Resp B/P (MAP) Pulse Ox O2 Delivery O2 Flow Rate FiO2 06/03/17 12:00 99.0 84 20 110/59 (76) 96 06/03/17 08:00 99.6 89 20 130/75 (93) 94 06/03/17 05:59 97 Nasal Cannula 3.00 06/03/17 04:00 85 20 104/65 (78) 06/03/17 04:00 100.7 82 18 105/54 (71) 96 06/03/17 01:28 97.3 90 20 107/63 (78) 97 06/03/17 01:07 06/03/17 00:01 92 102/48 (66) 97 Nasal Cannula 2.00 06/03/17 00:00 99.7 84 18 91/55 (67) 98 06/02/17 21:10 101.7 102 18 128/57 (80) 97 Nasal Cannula 2.00 06/02/17 19:25 97 Nasal Cannula 2.00 06/02/17 19:08 (88) 06/02/17 19:06 97 Nasal Cannula 2.00 06/02/17 19:06 18 97 Nasal Cannula 2.00 06/02/17 18:59 94 Nasal Cannula 2.00 06/02/17 18:47 102.4 107 18 140/63 (88) 96 I/O 06/02/17 06/02/17 06/02/17 06/03/17 06/03/17 06/03/17 07:00 15:00 23:00 07:00 15:00 23:00 Intake Total 2000 ml 210 ml 500 ml Output Total 250 ml Balance 2000 ml -40 ml 500 ml Intake IV Total 2000 ml 210 ml 500 ml Output Urine Total 250 ml Result Diagram: 06/03/17 1013 06/03/17 1013 Objective Remarks - - - GENERAL: This is a well-nourished, well-developed patient, in no apparent distress. SKIN: No rashes, warm and dry HEAD: Atraumatic. Normocephalic. EYES: Pupils equal round and reactive. Extraocular motions intact. No scleral icterus. ENT: Engorged pharyngeal without clear exudate, no significant lymph node NECK: Trachea midline. Supple CARDIOVASCULAR: Regular rate and rhythm without murmurs, gallops, or rubs. RESPIRATORY: Fair air entry bilaterally. No wheezes, rales, or rhonchi. GASTROINTESTINAL: Abdomen soft, non-tender, nondistended. Positive bowel sounds MUSCULOSKELETAL: Extremities without clubbing, cyanosis, or edema. Pedal pulses appreciated NEUROLOGICAL: Awake and alert. Moves all extremity. Normal speech.no focal neurological deficit A/P Problem List: (1) SIRS (systemic inflammatory response syndrome) ICD Code: R65.10 - Systemic inflammatory response syndrome (SIRS) of non- infectious origin without acute organ dysfunction (2) Pharyngitis ICD Code: J02.9 - Acute pharyngitis, unspecified (3) Renal insufficiency ICD Code: N28.9 - Disorder of kidney and ureter, unspecified (4) Hypokalemia ICD Code: E87.6 - Hypokalemia (5) HTN (hypertension) ICD Code: I10 - Essential (primary) hypertension Assessment and Plan 06/03: Patient still having fever 100.7 documented, max 102.4, WBC increased to 25K with neutrophils 91%, lactic acid dropped from 2.1-1.8, creatinine improved from 1.27-1.18 I will hold her swab culture of the throat, monoscreen, will consider ID consultation Also if continued to run fever will need to consider CT of the pharyngeal and the neck rule out abscess Initial admitting A/P: 1. SIRS: Temp 102.4, HR 107, WBC 23, Lactic Acid 2.1. Source-unclear. U/a negative, CXR w/ no acute findings, images reviewed by me, CT Abd/Pelvis w/ no source of infection, images reviewed. Influenza negative. S/p Blood Cultures, IVF, Rocephin/Zithro in ER. Follow up cultures, continue w/ IVF, repeat Lactic Acid normalized. Likely viral etiology, start Tamiflu. 2. Pharyngitis: c/o sore throat, +pharyngeal erythema, no exudates. IVF, Cepacol, Tamiflu. 3. KERVIN: Creatinine 1.27, no previous labs for comparison, presumably new. IVF for hydration, repeat labs in am. 4. Hypokalemia: K+ 3.2, will replace and recheck labs in am. 5. HTN: BP controlled. On Lisinopril/HCTZ at home, will hold in light of renal insufficiency/dehydration. Monitor BP. 6. DVT Prophylaxis: SCD/Teds. Lela Ruelas MD Jun 03, 2017 14:24
[2017-06-03] MEDS ORDERED: AZITHROMYCIN INJ 500 MG in SODIUM CHLOR 0.9% 250 ML INJ 250 ML IV SCH (21:00)
[2017-06-03] MEDS ORDERED: cefTRIAXone INJ 1,000 MG in SODIUM CHLORIDE 0.9% INJ 100 ML IV SCH (22:00)
[2017-06-04] VITALS (7 sets, daily range): BP systolic 112–118; BP diastolic 56–80; PULSE 65–137; RESP 19–22; TEMP 96.4–98.2; O2SAT 92–97
[2017-06-04] MEDS: RESP: ALBUTEROL 2.5 MG/IPRATROPIUM 0.5 MG NEB (PRN) NEB (00:10)
[2017-06-04] MEDS: SODIUM CHLOR 0.9% 1000 ML INJ 1,000 ML IV SCH ×2 (04:40→14:30)
[2017-06-04] MEDS: LEVOTHYROXINE SODIUM 50 MCG TAB PO SCH (06:42)
[2017-06-04] MEDS: MORPHINE SULFATE 2 MG/ML INJ IV PUSH PRN ×2 (06:44→20:47)
[2017-06-04] MEDS: OSELTAMIVIR PHOSPHATE 75 MG CAP PO SCH ×2 (09:15→20:28)
[2017-06-04] MEDS: NABUMETONE 500 MG TAB PO SCH ×2 (09:15→20:28)
[2017-06-04] MEDS: GABAPENTIN 400 MG CAP PO SCH ×4 (09:15→20:28)
[2017-06-04] MEDS: PANTOPRAZOLE SOD 20 MG DELAYED RELEASE TAB PO SCH (09:15)
[2017-06-04] MEDS: DOCUSATE SODIUM 50 MG/SENNA 8.6 MG TAB PO SCH ×2 (09:15→20:29)
[2017-06-04] MEDS: SODIUM CHLORIDE 0.9% FLUSH 10 ML FLUSH IV FLUSH SCH (09:16)
--- NOTE | 2017-06-04 11:23 | HHI.PR ---
Subjective Remarks Today patient was complaining of left lower extremity redness and swelling which was not exist yesterday, in which can explain her leukocytosis and fever Not much of a sore throat today, no neck pain or lymphadenopathy Objective Vitals Vital Signs Date Time Temp Pulse Resp B/P (MAP) Pulse Ox O2 Delivery O2 Flow Rate FiO2 06/04/17 08:00 97.8 122 19 112/75 (87) 95 06/04/17 04:00 98.2 80 20 118/66 (83) 95 06/04/17 00:14 97 Nasal Cannula 1.00 06/04/17 00:01 86 06/03/17 21:18 99.8 82 20 113/58 (76) 95 06/03/17 20:15 100 Nasal Cannula 1.00 06/03/17 19:37 78 06/03/17 18:34 96 1.00 06/03/17 17:00 1.00 06/03/17 16:00 98.0 80 18 111/59 (76) 99 06/03/17 15:00 98 2.00 06/03/17 12:00 99.0 84 20 110/59 (76) 96 I/O 06/03/17 06/03/17 06/03/17 06/04/17 06/04/17 06/04/17 07:00 15:00 23:00 07:00 15:00 23:00 Intake Total 210 ml 1500 ml 1190 ml 1000 ml Output Total 250 ml Balance -40 ml 1500 ml 1190 ml 1000 ml Intake Oral 840 ml IV Total 210 ml 1500 ml 350 ml 1000 ml Output Urine Total 250 ml # Voids 4 # Bowel Movements 1 Result Diagram: 06/03/17 1013 06/03/17 1013 Objective Remarks - - - GENERAL: This is a well-nourished, well-developed patient, in no apparent distress. SKIN: No rashes, warm and dry HEAD: Atraumatic. Normocephalic. EYES: Pupils equal round and reactive. Extraocular motions intact. No scleral icterus. ENT: Engorged pharyngeal without clear exudate, no significant lymph node NECK: Trachea midline. Supple CARDIOVASCULAR: Regular rate and rhythm without murmurs, gallops, or rubs. RESPIRATORY: Fair air entry bilaterally. No wheezes, rales, or rhonchi. GASTROINTESTINAL: Abdomen soft, non-tender, nondistended. Positive bowel sounds MUSCULOSKELETAL: Left lower extremity erythema warmth and swelling consistent with cellulitis NEUROLOGICAL: Awake and alert. Moves all extremity. Normal speech.no focal neurological deficit A/P Problem List: (1) SIRS (systemic inflammatory response syndrome) ICD Code: R65.10 - Systemic inflammatory response syndrome (SIRS) of non- infectious origin without acute organ dysfunction (2) Pharyngitis ICD Code: J02.9 - Acute pharyngitis, unspecified (3) Renal insufficiency ICD Code: N28.9 - Disorder of kidney and ureter, unspecified (4) Hypokalemia ICD Code: E87.6 - Hypokalemia (5) HTN (hypertension) ICD Code: I10 - Essential (primary) hypertension Assessment and Plan 06/03: Patient still having fever 100.7 documented, max 102.4, WBC increased to 25K with neutrophils 91%, lactic acid dropped from 2.1-1.8, creatinine improved from 1.27-1.18 I will hold her swab culture of the throat, monoscreen, will consider ID consultation Also if continued to run fever will need to consider CT of the pharyngeal and the neck rule out abscess 06/04: New finding of left lower extremity warmth redness and swelling, cellulitis, DC Zosyn started Vanco, throat culture pending, I order mono test earlier and consulted ID, discussed with Dr. Hughes Initial admitting A/P: 1. With color extremity cellulitis with sepsis: Temp 102.4, HR 107, WBC 23, Lactic Acid 2.1. Source-unclear. U/a negative, CXR w/ no acute findings, images reviewed by me, CT Abd/Pelvis w/ no source of infection, images reviewed. Influenza negative. S/p Blood Cultures, IVF, Rocephin/Zithro in ER. Follow up cultures, continue w/ IVF, Lactic Acid normalized. Change Zithromax to vancomycin 2. Suspect Pharyngitis: c/o sore throat, +pharyngeal erythema, no exudates. IVF, Cepacol, Tamiflu. 3. KERVIN: Creatinine 1.27, no previous labs for comparison, presumably new. IVF for hydration, repeat labs in am. 4. Hypokalemia: K+ 3.2, will replace and recheck labs in am. 5. HTN: BP controlled. On Lisinopril/HCTZ at home, will hold in light of renal insufficiency/dehydration. Monitor BP. 6. DVT Prophylaxis: SCD/Teds. Lela Ruelas MD Jun 04, 2017 11:23
[2017-06-04] MEDS ORDERED: Vancomycin Consult Pharmacy 1 EA OTHER SCH (11:30)
[2017-06-04 11:44] LABS: AUTOMATED NEUTROPHIL # 9.5 TH/MM3 (1.8-7.7); BASOPHIL % 0.2 % (0.0-2.0); EOSINOPHIL # 0.4 TH/MM3 (0-0.4); EOSINOPHIL % 2.9 % (0.0-4.0); HEMATOCRIT 33.6 % (35.0-46.0); HEMOGLOBIN 10.9 GM/DL (11.6-15.3); LYMPH % 17.1 % (9.0-44.0); LYMPHOCYTE # 2.3 TH/MM3 (1.0-4.8); MEAN CELL VOLUME 90.8 FL (80.0-100.0); MEAN CORPUSCULAR HEMOGLOBIN 29.5 PG (27.0-34.0); MEAN CORPUSCULAR HGB CONC 32.5 % (32.0-36.0); MEAN PLATELET VOLUME 9.1 FL (7.0-11.0); MONO % 7.6 % (0.0-8.0); NEUT % 72.2 % (16.0-70.0); PLATELET COUNT 152 TH/MM3 (150-450); RED BLOOD COUNT 3.71 MIL/MM3 (4.00-5.30); RED CELL DISTRIBUTION WIDTH 13.8 % (11.6-17.2); WHITE BLOOD COUNT 13.2 TH/MM3 (4.0-11.0)
[2017-06-04 12:40] LABS: BICARBONATE 25.5 MEQ/L (21.0-32.0); CALCIUM 8.6 MG/DL (8.5-10.1); CREATININE 0.83 MG/DL (0.50-1.00)
[2017-06-04] MEDS ORDERED: VANCOMYCIN INJ 1,750 MG in SODIUM CHLORID 0.9% 500 ML INJ 500 ML IV SCH (13:00)
[2017-06-04 13:07] LABS: MONOSCREEN NEG (NEG)
[2017-06-04] MEDS: VANCOMYCIN INJ 1,500 MG in SODIUM CHLORID 0.9% 500 ML INJ 500 ML IV SCH (14:06)
--- NOTE | 2017-06-04 14:53 | PD.ID.CON ---
History of Present Illness Service ID Consult Requested By Dr Ruelas Reason for Consult febrile illnes Primary Care Physician Phil Ta M.D. Diagnoses: History of Present Illness 66 yo presents with few days of fever, chill, initially nausea and vomiting as well now resolved Also has some sweliing, redness and tenderness of her L foot/ankle Started on broad spectrum abx Fever up to 103 on presentation, now resolved, occ low grade < 99.8 WBC of 25 K, now down to 13 K Review of Systems Except as stated in HPI: all other systems reviewed are Neg Past Family Social History Allergies: Coded Allergies: Sulfa (Sulfonamide Antibiotics) (Unverified Allergy, Intermediate, ) fish oil (Verified Allergy, Intermediate, 06/02/17) Past Medical History HTN, Rheumatoid Arthritis and Hypothyroidism Past Surgical History Cholecystectomy, Active Ordered Medications Medications where reviewed in EMR Antibiotics Include: azithro CFTX vanco Family History Reviewed. No h/o DM or CAD Social History Occasional alcohol. Negative for tobacco or drugs. Physical Exam Vital Signs Vital Signs Date Time Temp Pulse Resp B/P (MAP) Pulse Ox O2 Delivery O2 Flow Rate FiO2 06/04/17 12:00 96.4 74 19 115/80 (92) 94 06/04/17 08:00 97.8 122 19 112/75 (87) 95 06/04/17 04:00 98.2 80 20 118/66 (83) 95 06/04/17 00:14 97 Nasal Cannula 1.00 06/04/17 00:01 86 06/03/17 21:18 99.8 82 20 113/58 (76) 95 06/03/17 20:15 100 Nasal Cannula 1.00 06/03/17 19:37 78 06/03/17 18:34 96 1.00 06/03/17 17:00 1.00 06/03/17 16:00 98.0 80 18 111/59 (76) 99 06/03/17 15:00 98 2.00 Physical Exam CONSTITUTIONAL/GENERAL: This is an adequately nourished patient, in no apparent distress. TUBES/LINES/DRAINS: SKIN: No jaundice, rashes, or lesions. Skin temperature appropriate. Not diaphoretic. HEAD: Atraumatic. Normocephalic. EYES: Pupils equal and round and reactive. Extraocular motions intact. No scleral icterus. No injection or drainage. Fundi not examined. ENT: Hearing grossly normal. Nose without bleeding or purulent drainage. Throat without visible erythema, exudates, masses, or lesions. edentulous NECK: Trachea midline. Supple, nontender. CARDIOVASCULAR: Regular rate and rhythm without murmurs, gallops, or rubs. No JVD. Peripheral pulses symmetric. RESPIRATORY/CHEST: Symmetric, unlabored respirations. Clear to auscultation. Breath sounds equal bilaterally. No wheezes, rales, or rhonchi. GASTROINTESTINAL: Abdomen soft, non-tender, nondistended. No hepato-splenomegaly , or palpable masses. No guarding. Bowel sounds present. GENITOURINARY: Without palpable bladder distension. MUSCULOSKELETAL: Extremities without clubbing, cyanosis, or edema. No joint tenderness or effusion noted. No calf tenderness. No mottling or clubbing. L foot is red mildly tender, edematous multiple skin cracks noted on L sole NEUROLOGICAL: Awake and alert. Motor and sensory grossly within normal limits. Follows commands. Clear speech Moves all extremities. PSYCHIATRIC: No obvious anxiety/depression. no apparent hallucinations or other psychotic thought process. Laboratory Laboratory Tests Test 06/04/17 11:20 White Blood Count 13.2 Red Blood Count 3.71 Hemoglobin 10.9 Hematocrit 33.6 Mean Corpuscular Volume 90.8 Mean Corpuscular Hemoglobin 29.5 Mean Corpuscular Hemoglobin Concent 32.5 Red Cell Distribution Width 13.8 Platelet Count 152 Mean Platelet Volume 9.1 Neutrophils (%) (Auto) 72.2 Lymphocytes (%) (Auto) 17.1 Monocytes (%) (Auto) 7.6 Eosinophils (%) (Auto) 2.9 Basophils (%) (Auto) 0.2 Neutrophils # (Auto) 9.5 Lymphocytes # (Auto) 2.3 Monocytes # (Auto) 1.0 Eosinophils # (Auto) 0.4 Basophils # (Auto) 0.0 CBC Comment DIFF FINAL Differential Comment Blood Urea Nitrogen 19 Creatinine 0.83 Random Glucose 125 Calcium Level 8.6 Sodium Level 138 Potassium Level 3.5 Chloride Level 107 Carbon Dioxide Level 25.5 Anion Gap 8 Estimat Glomerular Filtration Rate 68 Monoscreen NEG Date/Time Source Procedure Growth Status 06/02/17 19:10 Blood Peripheral Aerobic Blood Culture - Preliminary NO GROWTH IN 2 DAYS Resulted 06/02/17 19:10 Blood Peripheral Anaerobic Blood Culture - Preliminary NO GROWTH IN 2 DAYS Resulted 06/03/17 14:16 Throat Throat Culture - Preliminary Resulted Result Diagram: 06/04/17 1120 06/04/17 1120 Imaging Last Impressions Chest X-Ray 06/02/17 1850 Signed Impressions: Service Date/Time: , June 02, 2017 19:22 - CONCLUSION: 1. No infiltrates seen. 2. Cardiomegaly. Jose L Corley MD Abdomen/Pelvis CT 06/02/17 0000 Signed Impressions: Service Date/Time: , June 02, 2017 21:36 - CONCLUSION: 1. No dilated loops of small or large bowel. 2. Nonspecific minimally prominent para-aortic lymph nodes. 3. Prominent bilateral fluid structures in the renal sinus bilaterally. Differential considerations include parapelvic cysts in bilateral hydronephrosis without stones. The patient will be brought back for delayed imaging of the kidneys to help differentiate. An addendum will be rendered. Jose L Corley MD ADDENDUM: The patient was brought back for delayed scanning of the kidneys. Axial and coronal reconstruction images were performed and demonstrate a normal dimension to the collecting system bilaterally. The low density areas seen in the renal sinus and extrarenal region are confirmed to be multiple parapelvic cysts. Jose L Corley MD Assessment and Plan Assessment and Plan Fever L LE cellulits - likely source iof fever multiple L foot cracks is the most likely port of entry Improving leukocytosis, fever No c;llinical /rad e/o of PNA No UTI per clinical pic or labs cont vancomycin cont CFTX 2 gm daily for now monitor BC Umm Hughes MD Jun 04, 2017 14:53
[2017-06-04] MEDS: cefTRIAXone INJ 2,000 MG in SODIUM CHLORIDE 0.9% INJ 100 ML IV SCH (22:05)
[2017-06-05] VITALS (9 sets, daily range): BP systolic 94–139; BP diastolic 50–63; PULSE 60–82; RESP 18–20; TEMP 96–97.8; O2SAT 92–97
[2017-06-05] MEDS: SODIUM CHLORIDE 0.9% FLUSH 10 ML FLUSH IV FLUSH SCH ×3 (01:26→21:00)
[2017-06-05] MEDS: SODIUM CHLOR 0.9% 1000 ML INJ 1,000 ML IV SCH ×3 (01:26→21:32)
[2017-06-05] MEDS: MORPHINE SULFATE 2 MG/ML INJ IV PUSH PRN ×2 (01:36→21:59)
[2017-06-05] MEDS: RESP: ALBUTEROL 2.5 MG/IPRATROPIUM 0.5 MG NEB (PRN) NEB (01:55)
[2017-06-05] MEDS: LEVOTHYROXINE SODIUM 50 MCG TAB PO SCH (05:37)
[2017-06-05 08:06] LABS: AUTOMATED NEUTROPHIL # 4.3 TH/MM3 (1.8-7.7); BASOPHIL % 0.4 % (0.0-2.0); EOSINOPHIL # 0.5 TH/MM3 (0-0.4); EOSINOPHIL % 6.3 % (0.0-4.0); HEMATOCRIT 32.8 % (35.0-46.0); LYMPH % 29.2 % (9.0-44.0); LYMPHOCYTE # 2.3 TH/MM3 (1.0-4.8); MEAN CELL VOLUME 91.7 FL (80.0-100.0); MEAN CORPUSCULAR HEMOGLOBIN 30.6 PG (27.0-34.0); MEAN CORPUSCULAR HGB CONC 33.4 % (32.0-36.0); MEAN PLATELET VOLUME 9.1 FL (7.0-11.0); MONO % 9.8 % (0.0-8.0); MONOCYTE # 0.8 TH/MM3 (0-0.9); NEUT % 54.3 % (16.0-70.0); PLATELET COUNT 146 TH/MM3 (150-450); RED BLOOD COUNT 3.58 MIL/MM3 (4.00-5.30); RED CELL DISTRIBUTION WIDTH 13.8 % (11.6-17.2)
[2017-06-05 08:11] LABS: BICARBONATE 26.6 MEQ/L (21.0-32.0); CALCIUM 8.9 MG/DL (8.5-10.1); CREATININE 0.75 MG/DL (0.50-1.00)
[2017-06-05] MEDS: OSELTAMIVIR PHOSPHATE 75 MG CAP PO SCH ×2 (08:35→21:32)
[2017-06-05] MEDS: DOCUSATE SODIUM 50 MG/SENNA 8.6 MG TAB PO SCH ×2 (08:35→21:32)
[2017-06-05] MEDS: PANTOPRAZOLE SOD 20 MG DELAYED RELEASE TAB PO SCH (08:35)
[2017-06-05] MEDS: NABUMETONE 500 MG TAB PO SCH ×2 (08:35→21:32)
[2017-06-05] MEDS: GABAPENTIN 400 MG CAP PO SCH ×4 (08:35→21:32)
[2017-06-05] MEDS: VANCOMYCIN INJ 1,500 MG in SODIUM CHLORID 0.9% 500 ML INJ 500 ML IV SCH (11:07)
--- NOTE | 2017-06-05 16:26 | HHI.PR ---
Subjective Remarks Patient sleeping, wake up to verbal stimuli but went right back to sleep Her left leg erythema looks much better today Discussed with ID will continue on iv antibiotic for today Objective Vitals Vital Signs Date Time Temp Pulse Resp B/P (MAP) Pulse Ox O2 Delivery O2 Flow Rate FiO2 06/05/17 12:00 96.8 60 18 139/63 (88) 95 06/05/17 08:00 97.0 71 20 115/55 (75) 92 06/05/17 04:00 96.0 82 20 94/50 (65) 97 06/05/17 01:57 95 06/05/17 00:00 96.2 77 20 114/56 (75) 95 06/05/17 00:00 69 06/04/17 20:00 97.4 66 22 113/56 (75) 96 06/04/17 20:00 65 I/O 06/04/17 06/04/17 06/04/17 06/05/17 06/05/17 06/05/17 07:00 15:00 23:00 07:00 15:00 23:00 Intake Total 1000 ml 2575 ml 360 ml Output Total 350 ml Balance 1000 ml 2575 ml 10 ml Intake Oral 960 ml 360 ml IV Total 1000 ml 1615 ml Output Urine Total 350 ml # Voids 7 2 # Bowel Movements 1 0 Result Diagram: 06/05/1770606/05/17706 Objective Remarks - - - GENERAL: This is a well-nourished, well-developed patient, in no apparent distress. SKIN: No rashes, warm and dry HEAD: Atraumatic. Normocephalic. EYES: Pupils equal round and reactive. Extraocular motions intact. No scleral icterus. ENT: Engorged pharyngeal without clear exudate, no significant lymph node NECK: Trachea midline. Supple CARDIOVASCULAR: Regular rate and rhythm without murmurs, gallops, or rubs. RESPIRATORY: Fair air entry bilaterally. No wheezes, rales, or rhonchi. GASTROINTESTINAL: Abdomen soft, non-tender, nondistended. Positive bowel sounds MUSCULOSKELETAL: Left lower extremity erythema warmth and swelling consistent with cellulitis NEUROLOGICAL: Awake and alert. Moves all extremity. Normal speech.no focal neurological deficit A/P Problem List: (1) SIRS (systemic inflammatory response syndrome) ICD Code: R65.10 - Systemic inflammatory response syndrome (SIRS) of non- infectious origin without acute organ dysfunction (2) Pharyngitis ICD Code: J02.9 - Acute pharyngitis, unspecified (3) Renal insufficiency ICD Code: N28.9 - Disorder of kidney and ureter, unspecified (4) Hypokalemia ICD Code: E87.6 - Hypokalemia (5) HTN (hypertension) ICD Code: I10 - Essential (primary) hypertension Assessment and Plan 06/03: Patient still having fever 100.7 documented, max 102.4, WBC increased to 25K with neutrophils 91%, lactic acid dropped from 2.1-1.8, creatinine improved from 1.27-1.18 I will hold her swab culture of the throat, monoscreen, will consider ID consultation Also if continued to run fever will need to consider CT of the pharyngeal and the neck rule out abscess 06/04: New finding of left lower extremity warmth redness and swelling, cellulitis, DC Zosyn started Vanco, throat culture pending, I order mono test earlier and consulted ID, discussed with Dr. Hughes 06/05: Continue iv antibiotic, cellulitis improving. Monitor clinical course Initial admitting A/P: 1. Left lower extremity cellulitis with sepsis: Temp 102.4, HR 107, WBC 23, Lactic Acid 2.1. Source-unclear. U/a negative, CXR w/ no acute findings, images reviewed by me, CT Abd/Pelvis w/ no source of infection, images reviewed. Influenza negative. S/p Blood Cultures, IVF, Rocephin/Zithro in ER. Follow up cultures, continue w/ IVF, Lactic Acid normalized. Change Zithromax to vancomycin 2. Suspect Pharyngitis: c/o sore throat, +pharyngeal erythema, no exudates. IVF, Cepacol, Tamiflu. 3. KERVIN: Creatinine 1.27, no previous labs for comparison, presumably new. IVF for hydration, repeat labs in am. 4. Hypokalemia: K+ 3.2, will replace and recheck labs in am. 5. HTN: BP controlled. On Lisinopril/HCTZ at home, will hold in light of renal insufficiency/dehydration. Monitor BP. 6. DVT Prophylaxis: SCD/Teds. Discharge Planning In one or 2 days on by mouth antibiotic Lela Ruelas MD Jun 05, 2017 16:26
[2017-06-05] MEDS: cefTRIAXone INJ 2,000 MG in SODIUM CHLORIDE 0.9% INJ 100 ML IV SCH (21:58)
[2017-06-06] MEDS: LEVOTHYROXINE SODIUM 50 MCG TAB PO SCH (05:30)
[2017-06-06] MEDS: SODIUM CHLOR 0.9% 1000 ML INJ 1,000 ML IV SCH (05:30)
[2017-06-06] MEDS: OSELTAMIVIR PHOSPHATE 75 MG CAP PO SCH (07:57)
[2017-06-06] MEDS: PANTOPRAZOLE SOD 20 MG DELAYED RELEASE TAB PO SCH (07:57)
[2017-06-06] MEDS: DOCUSATE SODIUM 50 MG/SENNA 8.6 MG TAB PO SCH (07:57)
[2017-06-06] MEDS: GABAPENTIN 400 MG CAP PO SCH ×2 (07:57→13:09)
[2017-06-06] MEDS: NABUMETONE 500 MG TAB PO SCH (07:57)
[2017-06-06 08:00] VITALS: BP 139/76; PULSE 76; RESP 17; TEMP 96.6; O2SAT 94
[2017-06-06] MEDS: SODIUM CHLORIDE 0.9% FLUSH 10 ML FLUSH IV FLUSH SCH (08:05)
[2017-06-06] MEDS: RESP: ALBUTEROL 2.5 MG/IPRATROPIUM 0.5 MG NEB (PRN) NEB (10:15)
[2017-06-06] MEDS: MORPHINE SULFATE 2 MG/ML INJ IV PUSH PRN (11:17)
[2017-06-06 12:00] VITALS: BP 144/89; PULSE 91; RESP 17; TEMP 96.1; O2SAT 94
[2017-06-06] MEDS ORDERED: CEPH-460 PO (12:22)
[2017-06-06] MEDS: VANCOMYCIN INJ 1,500 MG in SODIUM CHLORID 0.9% 500 ML INJ 500 ML IV SCH (13:08)
--- NOTE | 2017-06-06 14:39 | HHI.IDPN ---
Subjective Subjective Remarks pt is doing OK no fever WBC down from 25 K to 8K Antibiotics CFTX vancomycin Allergies: Coded Allergies: Sulfa (Sulfonamide Antibiotics) (Unverified Allergy, Intermediate, ) fish oil (Verified Allergy, Intermediate, 06/02/17) Objective . Vital Signs Date Time Temp Pulse Resp B/P (MAP) Pulse Ox O2 Delivery O2 Flow Rate FiO2 06/06/17 12:00 96.1 91 17 144/89 (107) 94 06/06/17 11:24 18 06/06/17 08:00 96.6 76 17 139/76 (97) 94 06/05/17 23:49 96.9 69 20 117/60 (79) 96 06/05/17 20:34 97.8 75 20 134/63 (86) 97 06/05/17 19:59 78 06/05/17 16:00 96.6 62 18 99/53 (68) 96 . Laboratory Tests Test 06/05/17 07:07 White Blood Count 8.0 TH/MM3 Red Blood Count 3.58 MIL/MM3 Hemoglobin 11.0 GM/DL Hematocrit 32.8 % Mean Corpuscular Volume 91.7 FL Mean Corpuscular Hemoglobin 30.6 PG Mean Corpuscular Hemoglobin Concent 33.4 % Red Cell Distribution Width 13.8 % Platelet Count 146 TH/MM3 Mean Platelet Volume 9.1 FL Neutrophils (%) (Auto) 54.3 % Lymphocytes (%) (Auto) 29.2 % Monocytes (%) (Auto) 9.8 % Eosinophils (%) (Auto) 6.3 % Basophils (%) (Auto) 0.4 % Neutrophils # (Auto) 4.3 TH/MM3 Lymphocytes # (Auto) 2.3 TH/MM3 Monocytes # (Auto) 0.8 TH/MM3 Eosinophils # (Auto) 0.5 TH/MM3 Basophils # (Auto) 0.0 TH/MM3 CBC Comment DIFF FINAL Differential Comment Laboratory Tests Test 06/05/17 07:07 Blood Urea Nitrogen 14 MG/DL Creatinine 0.75 MG/DL Random Glucose 86 MG/DL Calcium Level 8.9 MG/DL Sodium Level 140 MEQ/L Potassium Level 4.2 MEQ/L Chloride Level 110 MEQ/L Carbon Dioxide Level 26.6 MEQ/L Anion Gap 3 MEQ/L Estimat Glomerular Filtration Rate 77 ML/MIN Imaging Last Impressions Chest X-Ray 06/02/17 1850 Signed Impressions: Service Date/Time: May 19:22 - CONCLUSION: 1. No infiltrates seen. 2. Cardiomegaly. Jose L Corley MD Abdomen/Pelvis CT 06/02/17 0000 Signed Impressions: Service Date/Time: , June 02, 2017 21:36 - CONCLUSION: 1. No dilated loops of small or large bowel. 2. Nonspecific minimally prominent para-aortic lymph nodes. 3. Prominent bilateral fluid structures in the renal sinus bilaterally. Differential considerations include parapelvic cysts in bilateral hydronephrosis without stones. The patient will be brought back for delayed imaging of the kidneys to help differentiate. An addendum will be rendered. Jose L Corley MD ADDENDUM: The patient was brought back for delayed scanning of the kidneys. Axial and coronal reconstruction images were performed and demonstrate a normal dimension to the collecting system bilaterally. The low density areas seen in the renal sinus and extrarenal region are confirmed to be multiple parapelvic cysts. Jose L Corley MD Physical Exam CONSTITUTIONAL/GENERAL: This is an adequately nourished patient, in no apparent distress. TUBES/LINES/DRAINS: SKIN: No jaundice, rashes, or lesions. Skin temperature appropriate. Not diaphoretic. CARDIOVASCULAR: Regular rate and rhythm RESPIRATORY/CHEST: Symmetric, unlabored respirations. GASTROINTESTINAL: Abdomen soft, non-tender, nondistended. MUSCULOSKELETAL: Extremities without clubbing, cyanosis, or edema. No joint tenderness or effusion noted. No calf tenderness. No mottling or clubbing. L foot with near complete resolutionof cellulitic changes multiple skin cracks noted on L sole NEUROLOGICAL: Awake and alert. PSYCHIATRIC: calm Assessment & Plan Remarks Fever L LE cellulits - likely source of fever multiple L foot cracks is the most likely port of entry Improving leukocytosis, fever No c;llinical /rad e/o of PNA No UTI per clinical pic or labs change vancomycin, CFTX to Keflex 500 mg po qid and doxycyline 100 bid x 7-10 more days monitor BC untill final dw Dr Jessenia Hughes,Umm Mclaughlin MD Jun 06, 2017 14:39
[2017-06-06 16:00] VITALS: BP 130/76; PULSE 78; RESP 17; TEMP 96.5; O2SAT 92
[2017-06-06] MEDS ORDERED: CEPHALEXIN MONOHYDRATE 500 MG CAP PO SCH (18:00)
[2017-06-06] MEDS ORDERED: DOXYCYCLINE HYCLATE 100 MG CAP PO SCH (21:00)
[2017-06-07] MEDS ORDERED: PHARMACY ORDERED LAB ONE (12:45)
== END 2017-06-06 17:26 | disposition home or self-care (01) | DRG 152 ==
LOC: NEPE 18:32 → NEDA 22:32 → N07B 06-03 00:56
PROVIDERS: ADMIT Hospitalist; ATTEND Hospitalist
DX: J02.9 Acute pharyngitis, unspecified (principal); A41.9 Sepsis, unspecified organism; N17.9 Acute kidney failure, unspecified; L03.116 Cellulitis of left lower limb; E87.6 Hypokalemia; E86.0 Dehydration; I10 Essential (primary) hypertension; M06.9 Rheumatoid arthritis, unspecified; E03.9 Hypothyroidism, unspecified; Z87.891 Personal history of nicotine dependence; H91.90 Unspecified hearing loss, unspecified ear
CPT/HCPCS: 71010; 74177; 80048; 80053; 81001; 82550; 82552; 82805; 83605; 83690; 84484; 85007; 85025; 85027; 86308; 87040; 87070; 87804; 93005; 94640; 94664; 96360; 96361; J0456; J0696; J2270; J3370; J3480; J7030; J7040; J7050; Q9967

== ENCOUNTER 2017-06-10 22:46 | Emergency (ER) | payer MEDICARE, MEDICAID ==
[~2017-06-10] VITALS: Ht 154.9 cm; Wt 125.0 kg
[~2017-06-10 22:46] MED LIST changes: -ATOR10TA15 PO; +CEPH-460 PO; +GABA400C5 PO; -HYDR-3533 PO
[2017-06-10 22:48] VITALS: BP 166/77; PULSE 67; RESP 20; TEMP 98.5; O2SAT 95
--- NOTE | 2017-06-10 23:58 | PD ---
HPI Chief Complaint: Edema Time Seen by Provider: 23:13 Travel History International Travel<30 days: No Contact w/Intl Traveler<30days: No Traveled to known affect area: No History of Present Illness HPI The patient is a 66 year old female who presents to the [facility] emergency department with a history of recurrent left leg swelling, redness, and pain that began yesterday. The patient was discharged from the hospital on June 06, 4 days ago after being diagnosed with cellulitis. The patient was discharged home on cephalexin and has been taking this on a regular basis. She is unsure whether she had an ultrasound to evaluate for DVT in the leg. She denies any prior history of congestive heart failure, however she reports that over the last couple weeks she has had increased swelling in bilateral lower extremities. She also reports having chronic dyspnea on exertion that is been present for the last year. She denies any history of coronary artery disease, DVT, CHF, or PE. She reports that she did see her primary care physician yesterday for follow-up and was given an inhaler due to some wheezing. She reports that she was also scheduled for pulmonary function testing for possible COPD. The patient reports that she did have a history of lightly smoking and quit 20 years ago. She reports that over the last week she has had a cough as been productive of clear sputum. She reports that she had a fever with a MAXIMUM TEMPERATURE of 100, 3 days ago. On review of systems, the patient denies having any recent neck pain, chest pain, abdominal pain, vomiting, diarrhea, urinary symptoms, or neurologic symptoms. PFSH Past Medical History Narrative Medical The patient's past medical history is significant for hypertension, rheumatoid arthritis, hypothyroid disorder, cellulitis of the left lower extremity. Arthritis: Yes (RHEUMATOID ARTHRITIS) Anxiety: Yes Depression: No Cancer: No Cardiovascular Problems: Yes High Cholesterol: Yes Chemotherapy: No Diabetes: No Diminished Hearing: Yes (RESIGHINI) Gastrointestinal Disorders: Yes GERD: Yes Genitourinary: No Hypertension: Yes Musculoskeletal: Yes Neurologic: Yes Psychiatric: Yes Reproductive: No Respiratory: Yes Radiation Therapy: No Thyroid Disease: Yes (hypothriodism) Tetanus Vaccination: Unknown Influenza Vaccination: No ?: Not LMP: menapause : 2 Para: 2 Tubal Ligation: Yes Past Surgical History Narrative Surgical The patient's past surgical history is significant for cholecystectomy, C- section Section: Yes Cholecystectomy: Yes Gynecologic Surgery: Yes () Oral Surgery: Yes Social History Alcohol Use: Yes ("VERY LIGHT") Tobacco Use: No Substance Use: No Allergies-Medications (Allergen,Severity, Reaction): Coded Allergies: Sulfa (Sulfonamide Antibiotics) (Unverified Allergy, Intermediate, ) fish oil (Verified Allergy, Intermediate, 06/10/17) Reported Meds & Prescriptions Reported Meds & Active Scripts Active Keflex (Cephalexin) 500 Mg Cap 500 Mg PO Q6H Doxycycline Hyclate 100 Mg Cap 100 Mg PO BID Reported Gabapentin 400 Mg Cap 400 Cap PO QID Levothyroxine (Levothyroxine Sodium) 50 Mcg Tab 50 Mcg PO DAILY Pantoprazole (Pantoprazole Sodium) 20 Mg Tab 20 Mg PO DAILY Nabumetone 500 Mg Tab 500 Mg PO BID Lisinopril-Hctz 20-25 Mg Tab 1 Tab PO DAILY Review of Systems Except as stated in HPI: all other systems reviewed are Neg General / Constitutional: Positive: Fever Eyes: No: Visual changes HENT: Positive: Congestion, No: Headaches Cardiovascular: Positive: Dyspnea on exertion, Edema, No: Chest Pain or Discomfort Respiratory: Positive: Cough, Shortness of Breath Gastrointestinal: No: Nausea, Vomiting, Diarrhea, Abdominal Pain Genitourinary: No: Dysuria Musculoskeletal: Positive: Myalgias, Edema, Pain Skin: No Rash Neurologic: No: Weakness, Focal Abnormalities, Change in Mentation, Slurred Speech, Sensory Disturbance Psychiatric: No: Depression Endocrine: No: Polydipsia Hematologic/Lymphatic: No: Easy Bruising Physical Exam Narrative General: The patient is a well-developed well-nourished female in no acute distress. Head and Neck exam: Head is normocephalic atraumatic. Eyes: EOMI, pupils are equal round and reactive to light. Nose: Midline septum with pink mucous membranes Mouth: Dentition unremarkable. Moist mucus membranes. Posterior oropharynx is not erythematous. No tonsillar hypertrophy. Uvula midline. Airway patent. Neck: No palpable lymphadenopathy. No nuchal rigidity. No thyromegaly. Cardiovascular: Regular rate and rhythm without murmurs, gallops, or rubs. Lungs: Soft expiratory wheezes audible anteriorly, no rhonchi, no crackles. No accessory muscle use. No tripoding. No paroxysmal abdominal breathing. Abdomen: Soft, without tenderness to palpation in all 4 quadrants of the abdomen. No guarding, rebound, or rigidity. Normal bowel sounds are audible. No tenderness on palpation of McBurney's point. Extremities: No clubbing or cyanosis. The patient has 1+ pitting edema bilateral lower extremities while worse on the left compared to the right with erythema to the left foot and left leg below the knee. The patient reports tenderness on palpation on the left side. There is no fluctuance or pointing. No vesicle formation. 2+ pulses in all 4 extremities. Less than 3 second capillary refill of her digits. Back: No costovertebral angle tenderness to palpation. Neurologic Exam: Grossly nonfocal. Skin Exam: Skin is warm and dry. Data Data Last Documented VS Vital Signs Date Time Temp Pulse Resp B/P (MAP) Pulse Ox O2 Delivery O2 Flow Rate FiO2 06/11/17 02:01 06/11/17 01:20 98 Room Air 06/11/17 00:29 65 18 06/10/17 22:48 98.5 Orders Orders Complete Blood Count With Diff (06/10/17 23:33) Comprehensive Metabolic Panel (06/10/17 23:33) Creatine Kinase (Cpk) (06/10/17 23:33) Ckmb (Isoenzyme) Profile (06/10/17 23:33) Troponin I (06/10/17 23:33) B-Type Natriuretic Peptide (06/10/17 23:33) Prothrombin Time / Inr (Pt) (06/10/17 23:33) Act Partial Throm Time (Ptt) (06/10/17 23:33) Blood Culture (06/10/17 23:33) C-Reactive Protein (Crp) (06/10/17 23:33) Chest, Single Ap (06/10/17 23:33) Iv Access Insert/Monitor (06/10/17 23:33) Ecg Monitoring (06/10/17 23:33) Oximetry (06/10/17 23:33) Lactic Acid Sepsis Protocol (06/10/17 23:37) Us Leg Venous Doppler (06/11/17 23:31) Doxycycline (Vibramycin) (06/11/17 01:15) Potassium Chloride (Kcl) (06/11/17 01:30) Ed Discharge Order (06/11/17 01:36) Electrocardiogram (06/10/17 23:14) Labs Laboratory Tests Test 06/10/17 23:30 06/10/17 23:40 White Blood Count 10.4 TH/MM3 Red Blood Count 4.09 MIL/MM3 Hemoglobin 12.2 GM/DL Hematocrit 36.8 % Mean Corpuscular Volume 90.0 FL Mean Corpuscular Hemoglobin 29.8 PG Mean Corpuscular Hemoglobin Concent 33.1 % Red Cell Distribution Width 13.6 % Platelet Count 270 TH/MM3 Mean Platelet Volume 7.9 FL Neutrophils (%) (Auto) 57.6 % Lymphocytes (%) (Auto) 29.5 % Monocytes (%) (Auto) 7.2 % Eosinophils (%) (Auto) 5.2 % Basophils (%) (Auto) 0.5 % Neutrophils # (Auto) 6.0 TH/MM3 Lymphocytes # (Auto) 3.1 TH/MM3 Monocytes # (Auto) 0.7 TH/MM3 Eosinophils # (Auto) 0.5 TH/MM3 Basophils # (Auto) 0.0 TH/MM3 CBC Comment DIFF FINAL Differential Comment Prothrombin Time 10.4 SEC Prothromb Time International Ratio 1.0 RATIO Activated Partial Thromboplast Time 26.9 SEC Blood Urea Nitrogen 9 MG/DL Creatinine 0.89 MG/DL Random Glucose 81 MG/DL Total Protein 7.5 GM/DL Albumin 3.2 GM/DL Calcium Level 8.7 MG/DL Alkaline Phosphatase 92 U/L Aspartate Amino Transf (AST/SGOT) 10 U/L Alanine Aminotransferase (ALT/SGPT) 21 U/L Total Bilirubin 0.3 MG/DL Sodium Level 139 MEQ/L Potassium Level 3.2 MEQ/L Chloride Level 102 MEQ/L Carbon Dioxide Level 30.6 MEQ/L Anion Gap 6 MEQ/L Estimat Glomerular Filtration Rate 63 ML/MIN Total Creatine Kinase 65 U/L Troponin I LESS THAN 0.02 NG/ML C-Reactive Protein 2.10 MG/DL B-Type Natriuretic Peptide 45 PG/ML Lactic Acid Level 0.8 mmol/L MDM Medical Decision Making Medical Screen Exam Complete: Yes Emergency Medical Condition: Yes Medical Record Reviewed: Yes Interpretation(s) Last Impressions Lower Extremity Ultrasound 06/11/17 0691 Signed Impressions: Service Date/Time: Sunday, June 11, 2017 00:42 - CONCLUSION: No venous thrombosis of the left lower extremity. Alexander Fontaine MD Chest X-Ray 06/10/17 2333 Signed Impressions: Service Date/Time: Saturday, June 10, 2017 23:47 - CONCLUSION: Clear lungs. Mild compensated cardiomegaly again noted. Alexander Fontaine MD Differential Diagnosis Recurrent cellulitis, versus DVT, versus congestive heart failure, versus cor pulmonale Narrative Course During the course of the patients emergency department visit, the patients history, examination, and differential diagnosis were reviewed with the patient. The patient was placed on a threat monitoring analyst with oximetry and frequent blood pressure monitoring. The patient had IV access obtained and blood work sent for analysis. The patient had an ECG done on arrival that shows a sinus rhythm heart rate is 69, QRS duration is 101 ms, QTC 421 ms with nonspecific T- wave abnormalities specifically T waves inverted in V1, V2, V3. No acute ST segment elevation. An ultrasound of the left lower extremity has been ordered to evaluate for possible DVT as this was not done previously. Review of the electronic medical record during her last admission reveals that infectious disease did see the patient in consultation and recommended that the patient be placed on Keflex 500 mg by mouth 4 times a day, and doxycycline 100 mg by mouth twice a day for 7-10 additional days. From reviewing the record. The patient, the patient was only discharged home on Keflex. The patients laboratory studies were reviewed and remarkable for a CBC that is remarkable for a white count of 10, eosinophilia at 5.2. CMP is remarkable for a potassium of 3.2 which was supplemented orally, GFR 63, AST 10, CPK 65, troponin I less than 0.02, C-reactive protein 2.10, BNP 45, albumin 3.2. PT 10.4, PTT 26.9. Radiology studies were reviewed and remarkable for an ultrasound of the left lower extremity that is negative for DVT. A chest x-ray that shows clear lungs , mild compensated cardiomegaly again noted. The patient was given a dose of doxycycline in the emergency department. The patient will be discharged home on doxycycline with continuation of Keflex for 10 day course. From reviewing the record the patient was on Keflex for 7 days, therefore she will be given enough medication to continue on it. The patient is resting comfortably and feels better, is alert and in no distress. The patients results and examination findings were discussed with the patient. The repeat examination is unremarkable and benign. The history, exam, diagnostic testing, and current condition do not suggest any significant pathology to warrant further testing, continued ED treatment, admission, or surgical evaluation at this point. The vital signs have been stable. The patient does not have uncontrollable pain, intractable vomiting, or other significant symptoms. The patient's condition is stable and appropriate for discharge. The patient will pursue further outpatient evaluation with a primary care physician or other designated or consulting physician as indicated in the discharge instructions. The patient expressed understanding and was agreeable with this plan. Diagnosis Primary Impression: Cellulitis Qualified Codes: L03.116 - Cellulitis of left lower limb Referrals: Primary Care Physician 2 days Patient Instructions: Cellulitis (ED), General Instructions Scripts Cephalexin (Keflex) 500 Mg Cap 500 MG PO Q6H for Infection, #12 CAP 0 Refills Prov: Yin Rosen MD 06/11/17 Doxycycline Hyclate (Doxycycline Hyclate) 100 Mg Cap 100 MG PO BID for Infection, #19 CAP 0 Refills Prov: Yin Rosen MD 06/11/17 Disposition: 01 DISCHARGE HOME Condition: Stable Yin Rosen MD Jun 10, 2017 23:58
[2017-06-10 23:59] LABS: BASOPHIL % 0.5 % (0.0-2.0); EOSINOPHIL # 0.5 TH/MM3 (0-0.4); EOSINOPHIL % 5.2 % (0.0-4.0); HEMATOCRIT 36.8 % (35.0-46.0); HEMOGLOBIN 12.2 GM/DL (11.6-15.3); LYMPH % 29.5 % (9.0-44.0); LYMPHOCYTE # 3.1 TH/MM3 (1.0-4.8); MEAN CORPUSCULAR HEMOGLOBIN 29.8 PG (27.0-34.0); MEAN CORPUSCULAR HGB CONC 33.1 % (32.0-36.0); MEAN PLATELET VOLUME 7.9 FL (7.0-11.0); MONO % 7.2 % (0.0-8.0); MONOCYTE # 0.7 TH/MM3 (0-0.9); NEUT % 57.6 % (16.0-70.0); PLATELET COUNT 270 TH/MM3 (150-450); RED BLOOD COUNT 4.09 MIL/MM3 (4.00-5.30); RED CELL DISTRIBUTION WIDTH 13.6 % (11.6-17.2); WHITE BLOOD COUNT 10.4 TH/MM3 (4.0-11.0)
--- NOTE | 2017-06-11 00:02 | RADRPT ---
EXAM DATE/TIME: 06/10/2017 23:47 [facility] COMPARISON: No previous studies available for comparison. INDICATIONS : Swelling of legs and Chest tightness MEDICAL HISTORY : Hypercholesterolemia. Hypertension Gastroesophageal reflux disease. Hypothyroidism SURGICAL HISTORY : Tubal ligation. Cholecystectomy. section. ENCOUNTER: Initial ACUITY: 1 week PAIN SCORE: 7/10 LOCATION: Bilateral chest FINDINGS: No infiltrate, effusion or pneumothorax demonstrated. Heart size stable, upper limits of normal. CONCLUSION: Clear lungs. Mild compensated cardiomegaly again noted. Alexander Fontaine MD on June 11, 2017 at 0:00 Board Certified Radiologist. This report was verified electronically.
[2017-06-11 00:10] LABS: PROTHROMBIN TIME - PATIENT 10.4 SEC (9.8-11.6)
[2017-06-11 00:15] LABS: ALBUMIN 3.2 GM/DL (3.4-5.0); AST (GOT) 10 U/L (15-37); BICARBONATE 30.6 MEQ/L (21.0-32.0); BLOOD UREA NITROGEN 9 MG/DL (7-18); CALCIUM 8.7 MG/DL (8.5-10.1); CHLORIDE 102 MEQ/L (98-107); CREATININE 0.89 MG/DL (0.50-1.00); GLOMERULAR FILTRATION RATE 63 ML/MIN (>89); GLUCOSE,RANDOM 81 MG/DL (74-106); SODIUM (NA) 139 MEQ/L (136-145)
[2017-06-11 00:16] LABS: ALT (GPT) 21 U/L (10-53)
[2017-06-11 00:19] LABS: ALKALINE PHOSPHATASE 92 U/L (45-117); TOTAL BILIRUBIN ADULT 0.3 MG/DL (0.2-1.0); TOTAL PROTEIN 7.5 GM/DL (6.4-8.2); TROPONIN I LESS THAN 0.02 NG/ML (0.02-0.05)
[2017-06-11 00:29] VITALS: BP 140/65; PULSE 65; RESP 18; O2SAT 94
[2017-06-11] MEDS ORDERED: DOXYCYCLINE HYCLATE 100 MG CAP PO ONE (01:15)
--- NOTE | 2017-06-11 01:17 | RADRPT ---
EXAM DATE/TIME: 06/11/2017 00:42 [facility] COMPARISON: No previous studies available for comparison. INDICATIONS : Left leg pain. MEDICAL HISTORY : Hypertension. Hearing loss. SURGICAL HISTORY : None. ENCOUNTER: Subsequent ACUITY: 1 month PAIN SCORE: 4/10 LOCATION: Left leg. TECHNIQUE: Venous ultrasound of the leg was performed from the inguinal ligament to the proximal calf. Real-natacha e, color Doppler and spectral tracing, compression and augmentation techniques were used. FINDINGS: There is normal compressibility of the deep venous system from the inguinal region to the proximal ca lf. No echogenic clot is seen in the lumen of the common femoral, femoral, popliteal, and posterior tibial veins. There is a normal response of the venous system to proximal and distal augmentation an d respiration. CONCLUSION: No venous thrombosis of the left lower extremity. Alexander Fontaine MD on June 11, 2017 at 1:16 Board Certified Radiologist. This report was verified electronically.
[2017-06-11 01:20] VITALS: O2SAT 98
[2017-06-11] MEDS ORDERED: POTASSIUM CHLORIDE 20 MEQ CONTROLLED RELEASE TAB PO ONE (01:30)
[2017-06-11] MEDS ORDERED: DOXY100C PO (01:37)
[2017-06-11] MEDS ORDERED: CEPH-460 PO (01:39)
--- NOTE | 2017-06-12 12:47 | EKG ---
Date Performed: 06/10/2017 Time Performed: 23:14:27 PTAGE: 66 years EKG: Sinus rhythm NONSPECIFIC T-WAVE ABNORMALITY Compared to prior tracing no significant change BORDERLINE ECG PREVIOUS TRACING : 06/02/2017 19.34 DOCTOR: Denys Rosen Interpretating Date/Time 06/12/2017 12:45:26
== END 2017-06-11 02:02 | disposition home or self-care (01) ==
LOC: NEPC 22:46
DX: L03.116 Cellulitis of left lower limb (principal); R09.81 Nasal congestion; R05 Cough; R06.02 Shortness of breath; M79.1 Myalgia; I51.7 Cardiomegaly; I10 Essential (primary) hypertension; M06.9 Rheumatoid arthritis, unspecified; R94.31 Abnormal electrocardiogram [ECG] [EKG]
CPT/HCPCS: 71010; 80053; 82550; 83605; 83880; 84484; 85025; 85610; 85730; 86140; 87040; 93005; 93971; 99285

== ENCOUNTER 2017-07-23 12:41 | Emergency (ER) | payer OTHER, MEDICAID ==
[~2017-07-23] VITALS: Ht 154.9 cm; Wt 122.0 kg
[~2017-07-23 12:41] MED LIST changes: +DOXY100C PO
[2017-07-23 12:50] VITALS: BP 151/65; PULSE 77; RESP 18; TEMP 98.5; O2SAT 98
[2017-07-23] MEDS ORDERED: MORPHINE SULFATE 4 MG/ML INJ IM ONE (13:45)
[2017-07-23 14:00] VITALS: RESP 18
--- NOTE | 2017-07-23 14:36 | RADRPT ---
EXAM DATE/TIME: 07/23/2017 14:15 [facility] COMPARISON: No previous studies available for comparison. INDICATIONS : Pain in left hip. Twisted wrong. MEDICAL HISTORY : None. SURGICAL HISTORY : Tubal ligation. Cholecystectomy. section. ENCOUNTER: Initial ACUITY: 1 day PAIN SCORE: 10/10 LOCATION: Left pelvis FINDINGS: Examination of the left hip was performed with AP Pelvis. The primary and secondary trabecular patte rn of the femoral neck is intact. The hip joint is of normal width without significant sclerosis or bony hypertrophy. The acetabulum is grossly intact. CONCLUSION: Negative examination. Carson Duarte MD on July 23, 2017 at 14:33 Board Certified Radiologist. This report was verified electronically.
[2017-07-23] MEDS ORDERED: ROBA500T PO (14:59)
[2017-07-23] MEDS ORDERED: IBUP1TAB7 PO (14:59)
[2017-07-23] MEDS ORDERED: TRAM50TA PO (14:59)
--- NOTE | 2017-07-23 15:00 | PD ---
HPI Chief Complaint: Back/ Neck Pain or Injury Time Seen by Provider: 13:23 Travel History International Travel<30 days: No Contact w/Intl Traveler<30days: No Traveled to known affect area: No History of Present Illness HPI 66-year-old female presents to emergency department via EMS with complaint of left lower back pain and hip pain 3 days after standing and twisting and developing low back pain. Has been ambulatory at her house at this time with her walker. I fever, vomiting. Denies encopresis, incontinence, saddle anesthesias. Denies IV drug or cancer. Denies radiation of pain. Rates pain 10/10. Worse with movement. Better when the right side-lying position with her hips flexed. Has not taken any medications or tried any treatments to alleviate her symptoms. Primary care provider is Dr. Ta. History of hypertension, hypothyroidism, and peripheral neuropathy. Allergies to sulfa and fish oil. Has no other medical complaints. No other modifying factors or associated signs and symptoms. PFSH Past Medical History Arthritis: Yes (RHEUMATOID ARTHRITIS) Anxiety: Yes Depression: No Cancer: No Cardiovascular Problems: Yes (HTN ) High Cholesterol: Yes Chemotherapy: No Diabetes: No Diminished Hearing: Yes ([place]) Gastrointestinal Disorders: Yes GERD: Yes Genitourinary: No Hypertension: Yes Implanted Vascular Access Dvce: No Musculoskeletal: Yes Neurologic: Yes Psychiatric: Yes Reproductive: No Respiratory: Yes Radiation Therapy: No Thyroid Disease: Yes (hypothriodism) : 2 Para: 2 Tubal Ligation: Yes Past Surgical History Section: Yes Cholecystectomy: Yes Gynecologic Surgery: Yes () Oral Surgery: Yes Other Surgery: Yes Social History Alcohol Use: Yes ("VERY LIGHT") Tobacco Use: No Substance Use: No Allergies-Medications (Allergen,Severity, Reaction): Coded Allergies: Sulfa (Sulfonamide Antibiotics) (Unverified Allergy, Intermediate, 07/23/17 ) fish oil (Verified Allergy, Intermediate, 07/23/17) Reported Meds & Prescriptions Reported Meds & Active Scripts Active Robaxin (Methocarbamol) 500 Mg Tab 500 Mg PO QID PRN Ibuprofen 800 Mg Tab 800 Mg PO Q8H PRN Tramadol (Tramadol HCl) 50 Mg Tab 50 Mg PO Q4H PRN Keflex (Cephalexin) 500 Mg Cap 500 Mg PO Q6H Doxycycline Hyclate 100 Mg Cap 100 Mg PO BID Reported Gabapentin 400 Mg Cap 400 Cap PO QID Levothyroxine (Levothyroxine Sodium) 50 Mcg Tab 50 Mcg PO DAILY Pantoprazole (Pantoprazole Sodium) 20 Mg Tab 20 Mg PO DAILY Nabumetone 500 Mg Tab 500 Mg PO BID Lisinopril-Hctz 20-25 Mg Tab 1 Tab PO DAILY Review of Systems Except as stated in HPI: all other systems reviewed are Neg Physical Exam Narrative GENERAL: Well-nourished, well-developed female patient, in no acute distress; afebrile, nontoxic-appearing SKIN: Warm and dry. HEAD: Atraumatic. Normocephalic. EYES: Pupils equal and round. No scleral icterus. No injection or drainage. ENT: Mucosa pink and moist. Airway patent. NECK: Trachea midline. CARDIOVASCULAR: Regular rate and rhythm. RESPIRATORY: No accessory muscle use. GASTROINTESTINAL: Obese. MUSCULOSKELETAL: Patient being uncooperative and refusing to move her left leg secondary to pain, which has limited my physical exam. Unable to assess range of motion of the left hip secondary to patient refusing to move it; without erythema, edema, or ecchymosis; left hip with tenderness on palpation to the lateral aspect; no obvious deformity. Left lower extremity is supple and non- tense with 2+ pedal pulse and sensory intact and without erythema or edema. BACK: No midline point tenderness on palpation of the lumbar spine. Reproducible tenderness to the left iliosacral area. NEUROLOGICAL: Awake and alert. Oriented 3. No obvious cranial nerve deficits. Motor grossly within normal limits. Normal speech. PSYCHIATRIC: Appropriate mood and affect; insight and judgment normal. Data Data Last Documented VS Vital Signs Date Time Temp Pulse Resp B/P (MAP) Pulse Ox O2 Delivery O2 Flow Rate FiO2 07/23/17 14:00 18 07/23/17 12:50 98.5 77 151/65 (93) 98 Orders Orders Hip, Uni(Ap&Lat) W Ap Pelvis (07/23/17 13:31) Morphine Inj (Morphine Inj) (07/23/17 13:45) Ct Lumb Spine W/O Contrast (07/23/17 ) Ct Hip W/O Contrast (07/23/17 ) Basic Metabolic Panel (Bmp) (07/23/17 15:20) Complete Blood Count With Diff (07/23/17 15:20) Iv Access Insert/Monitor (07/23/17 15:20) Methocarbamol (Robaxin) (07/23/17 15:30) Labs Laboratory Tests Test 07/23/17 15:43 White Blood Count 9.7 TH/MM3 Red Blood Count 4.61 MIL/MM3 Hemoglobin 14.0 GM/DL Hematocrit 41.4 % Mean Corpuscular Volume 89.8 FL Mean Corpuscular Hemoglobin 30.3 PG Mean Corpuscular Hemoglobin Concent 33.8 % Red Cell Distribution Width 13.7 % Platelet Count 189 TH/MM3 Mean Platelet Volume 8.6 FL Neutrophils (%) (Auto) 64.5 % Lymphocytes (%) (Auto) 27.5 % Monocytes (%) (Auto) 5.6 % Eosinophils (%) (Auto) 1.8 % Basophils (%) (Auto) 0.6 % Neutrophils # (Auto) 6.3 TH/MM3 Lymphocytes # (Auto) 2.7 TH/MM3 Monocytes # (Auto) 0.5 TH/MM3 Eosinophils # (Auto) 0.2 TH/MM3 Basophils # (Auto) 0.1 TH/MM3 CBC Comment DIFF FINAL Differential Comment Blood Urea Nitrogen 19 MG/DL Creatinine 0.91 MG/DL Random Glucose 103 MG/DL Calcium Level 9.3 MG/DL Sodium Level 140 MEQ/L Potassium Level 3.8 MEQ/L Chloride Level 104 MEQ/L Carbon Dioxide Level 29.9 MEQ/L Anion Gap 6 MEQ/L Estimat Glomerular Filtration Rate 61 ML/MIN [facility] Medical Decision Making Medical Screen Exam Complete: Yes Emergency Medical Condition: Yes Medical Record Reviewed: Yes Differential Diagnosis Low back strain, muscle spasm, sciatica, left hip pain, fracture Narrative Course 66-year-old female complaining of left hip pain and left lower back pain after twisting 3 days ago exacerbating pain. Denies encopresis, incontinence, saddle anesthesias. Reports being ambulatory at her house with assistance of her walker. Arrived via EMS. Physical exam is limited secondary to patient guarding and pain. He has no midline tenderness on palpation of the lumbar spine. Morphine and left hip and pelvis x-ray ordered. 1515: Left hip with AP pelvis x-ray concludes: Hip and Pelvis X-Ray 07/23/17 1331 Signed Impressions: Service Date/Time: Sunday, July 23, 2017 14:15 - CONCLUSION: Negative examination. Carson Duarte MD Will assess patient's ambulation status at this time. 1523: Patient unable to ambulate. Dr. Lopez recommended CT lumbar spine and hip, basic labs, and possible admission. 1630: CBC and BMP unremarkable. 1815: Patient was able to get out of the bed and get herself into a wheelchair to go to the bathroom. She was able to get herself back into the wheelchair from the bathroom and back into the room. 1845: CT pelvis and CT lumbar spine concludes: Last 24 hours Impressions Lumbar Spine CT 07/23/17 0000 Signed Impressions: Service Date/Time: Sunday, July 23, 2017 16:49 - CONCLUSION: No acute bony injury. The degenerative disc disease and facet arthritic changes as described at L4 and L5-S1 with mild localized spinal stenosis at both these levels without significant neural foraminal encroachment. Carson Duarte MD Lower Extremity CT 07/23/17 0000 Signed Impressions: Service Date/Time: Sunday, July 23, 2017 16:49 - CONCLUSION: Negative examination.. Carson Duarte MD Patient provided a copy of the CT reports. Patient has a walker at home for support. Ibuprofen, tramadol, Robaxin prescribed for home. Instructed patient to follow up with primary care provider on Tuesday. Instructed patient to follow up with primary care provider. Patient verbalizes understanding and agreement with treatment plan. Patient is medically cleared and stable for discharge. Discussed reasons to return to the emergency department. Patient agrees with treatment plan. The patients vital signs are stable and the patient is stable for outpatient follow-up and treatment. Patient discharged home, stable and in no acute distress. Diagnosis Primary Impression: Left low back pain Qualified Codes: M54.5 - Low back pain Additional Impression: Left hip pain Referrals: Primary Care Physician Patient Instructions: Acute Low Back Pain (ED), General Instructions, Hip Pain (ED) Additional Instructions: Provide patient with copy of her imaging Tylenol or ibuprofen as directed and as needed for pain Robaxin as prescribed and as needed for muscle spasms Heating pad and/or ice to affected area to reduce pain Avoid aggravating activities; increase activity as tolerated Follow-up with primary care provider Return to emergency department immediately with worsening of symptoms Med/Other Pt SpecificInfo: Prescription(s) given Scripts Methocarbamol (Robaxin) 500 Mg Tab 500 MG PO QID Y for MUSCLE SPASM, #30 TAB 0 Refills Prov: Lucrecia Hallman 07/23/17 Ibuprofen (Ibuprofen) 800 Mg Tab 800 MG PO Q8H Y for PAIN SCALE 1 TO 10, #20 TAB 0 Refills Prov: Lucrecia Hallman 07/23/17 Tramadol (Tramadol) 50 Mg Tab 50 MG PO Q4H Y for PAIN, #12 TAB 0 Refills Prov: Lucrecia Hallman 07/23/17 Disposition: 01 DISCHARGE HOME Condition: Stable Lucrecia Hallman Jul 23, 2017 15:00
[2017-07-23] MEDS ORDERED: METHOCARBAMOL 500 MG TAB PO ONE (15:30)
[2017-07-23 16:09] LABS: AUTOMATED NEUTROPHIL # 6.3 TH/MM3 (1.8-7.7); BASOPHIL # 0.1 TH/MM3 (0-0.2); BASOPHIL % 0.6 % (0.0-2.0); EOSINOPHIL # 0.2 TH/MM3 (0-0.4); EOSINOPHIL % 1.8 % (0.0-4.0); HEMATOCRIT 41.4 % (35.0-46.0); LYMPH % 27.5 % (9.0-44.0); LYMPHOCYTE # 2.7 TH/MM3 (1.0-4.8); MEAN CELL VOLUME 89.8 FL (80.0-100.0); MEAN CORPUSCULAR HEMOGLOBIN 30.3 PG (27.0-34.0); MEAN CORPUSCULAR HGB CONC 33.8 % (32.0-36.0); MEAN PLATELET VOLUME 8.6 FL (7.0-11.0); MONO % 5.6 % (0.0-8.0); MONOCYTE # 0.5 TH/MM3 (0-0.9); NEUT % 64.5 % (16.0-70.0); PLATELET COUNT 189 TH/MM3 (150-450); RED BLOOD COUNT 4.61 MIL/MM3 (4.00-5.30); RED CELL DISTRIBUTION WIDTH 13.7 % (11.6-17.2); WHITE BLOOD COUNT 9.7 TH/MM3 (4.0-11.0)
[2017-07-23 16:29] LABS: BICARBONATE 29.9 MEQ/L (21.0-32.0); CALCIUM 9.3 MG/DL (8.5-10.1); CREATININE 0.91 MG/DL (0.50-1.00)
--- NOTE | 2017-07-23 17:19 | RADRPT ---
EXAM DATE/TIME: 07/23/2017 16:49 [facility] COMPARISON: HIP LEFT (AP&LAT 2/3VWS) W AP PELVIS, July 23, 2017, 14:15. INDICATIONS : Left hip pain. RADIATION DOSE: 24.90 CTDIvol (mGy) MEDICAL HISTORY : Rheumatoid arthritis. Cardiovascular disease Gastroesophageal reflux disease.Hypertension. SURGICAL HISTORY : Cholecystectomy. Tubal ligation. ENCOUNTER: Initial ACUITY: 3 days PAIN SCALE: 8/10 LOCATION: Left pelvis TECHNIQUE: Volumetric scanning of the hip was performed. Using automated exposure control and adjustment of the mA and/or kV according to patient size, radiation dose was kept as low as reasonably achievable to o btain optimal diagnostic quality images. DICOM format image data is available electronically for rev iew and comparison. FINDINGS: BONES: No evidence of fracture. Alignment is within normal limits. JOINTS: No evidence of joint narrowing or effusion. SOFT TISSUES: Muscles, tendons and neurovascular structures are grossly unremarkable. No evidence of mass, organize d fluid collection, or foreign body. CONCLUSION: Negative examination.. Carson Duarte MD on July 23, 2017 at 17:13 Board Certified Radiologist. This report was verified electronically.
--- NOTE | 2017-07-23 17:28 | RADRPT ---
EXAM DATE/TIME: 07/23/2017 16:49 [facility] COMPARISON: CT ABDOMEN & PELVIS W CONTRAST, June 02, 2017, 21:36. INDICATIONS : Lower back pain, no recent trauma. RADIATION DOSE: 35.86 CTDIvol (mGy) MEDICAL HISTORY : Rheumatoid arthritis. Hypertension. Gastroesophageal reflux disease.Hypertension. SURGICAL HISTORY : Cholecystectomy. Tubal ligation. ENCOUNTER: Initial ACUITY: 3 days PAIN SCALE: 8/10 LOCATION: Bilateral lower back TECHNIQUE: Volumetric scanning of the lumbar spine was performed. Multiplanar reconstructions in the sagittal, coronal and oblique axial planes were performed. Using automated exposure control and adjustment of the mA and/or kV according to patient size, radiation dose was kept as low as reasonably achievable t o obtain optimal diagnostic quality images. DICOM format image data is available electronically for review and comparison. FINDINGS: VERTEBRAE: Normal vertebral body height. Schmorl's nodule again noted of the superior vertebral endplate left-si ded of L5. There is interspersed anterior marginal spurring at all levels. ALIGNMENT: No evidence of subluxation. T12-L1: The thecal sac has a normal diameter. No evidence of disc bulge or protrusion. The neural foramina are patent bilaterally. L1-L2: The thecal sac has a normal diameter. No evidence of disc bulge or protrusion. The neural foramina are patent bilaterally. L2-L3: The thecal sac has a normal diameter. No evidence of disc bulge or protrusion. The neural foramina are patent bilaterally. L3-L4: The thecal sac has a normal diameter. No evidence of disc bulge or protrusion. The neural foramina are patent bilaterally. L4-L5: There is degenerative disc disease with narrowing of the disc space posterior osteophyte disc complex encroaching upon the thecal sac with facet arthritic changes and ligamentous hypertrophy yielding a mild localized spinal stenosis. L5-S1: Degenerative disc disease is appreciated with mild narrowing and there are facet arthritic changes po steriorly minimally hypertrophic. Minimal central osteophyte disc complex yields a mild localized spi nal stenosis. CONCLUSION: No acute bony injury. The degenerative disc disease and facet arthritic ch anges as described at L4 and L5-S1 with mild localized spinal stenosis at both these levels without s ignificant neural foraminal encroachment. Carson Duarte MD on July 23, 2017 at 17:17 Board Certified Radiologist. This report was verified electronically.
[2017-07-23] MEDS ORDERED: traMADol HCL 50 MG TAB PO ONE (19:00)
== END 2017-07-23 15:06 | disposition home or self-care (01) ==
LOC: NEPD 12:41
DX: M54.5 Low back pain (principal); M25.552 Pain in left hip; M06.9 Rheumatoid arthritis, unspecified; I10 Essential (primary) hypertension; E78.00 Pure hypercholesterolemia, unspecified; E03.9 Hypothyroidism, unspecified; G62.9 Polyneuropathy, unspecified; K21.9 Gastro-esophageal reflux disease without esophagitis; X50.1XXA Overexertion from prolonged static or awkward postures, initial encounter; Z88.2 Allergy status to sulfonamides; Z79.899 Other long term (current) drug therapy
CPT/HCPCS: 72131; 73502; 73700; 80048; 85025; 96372; 99285; J2270

== ENCOUNTER 2017-11-01 16:05 | Emergency (ER) | payer OTHER ==
[~2017-11-01] VITALS: Ht 154.9 cm; Wt 127.0 kg
[~2017-11-01 16:05] MED LIST changes: +IBUP1TAB7 PO; +ROBA500T PO; +TRAM50TA PO
[2017-11-01 16:48] VITALS: BP 115/60; PULSE 79; RESP 18; TEMP 98.5; O2SAT 95
[2017-11-01 18:42] LABS: BASOPHIL # 0.1 TH/MM3 (0-0.2); BASOPHIL % 0.6 % (0.0-2.0); EOSINOPHIL # 0.4 TH/MM3 (0-0.4); EOSINOPHIL % 4.5 % (0.0-4.0); HEMATOCRIT 40.8 % (35.0-46.0); HEMOGLOBIN 13.2 GM/DL (11.6-15.3); LYMPH % 30.4 % (9.0-44.0); LYMPHOCYTE # 2.8 TH/MM3 (1.0-4.8); MEAN CORPUSCULAR HEMOGLOBIN 29.1 PG (27.0-34.0); MEAN CORPUSCULAR HGB CONC 32.3 % (32.0-36.0); MEAN PLATELET VOLUME 8.9 FL (7.0-11.0); MONO % 9.6 % (0.0-8.0); MONOCYTE # 0.9 TH/MM3 (0-0.9); NEUT % 54.9 % (16.0-70.0); PLATELET COUNT 217 TH/MM3 (150-450); RED BLOOD COUNT 4.53 MIL/MM3 (4.00-5.30); WHITE BLOOD COUNT 9.1 TH/MM3 (4.0-11.0)
[2017-11-01 19:00] LABS: ALBUMIN 3.4 GM/DL (3.4-5.0); AST (GOT) 24 U/L (15-37); BICARBONATE 27.4 MEQ/L (21.0-32.0); BLOOD UREA NITROGEN 19 MG/DL (7-18); CALCIUM 9.1 MG/DL (8.5-10.1); CHLORIDE 101 MEQ/L (98-107); CREATININE 1.04 MG/DL (0.50-1.00); GLOMERULAR FILTRATION RATE 53 ML/MIN (>89); GLUCOSE,RANDOM 77 MG/DL (74-106); SODIUM (NA) 139 MEQ/L (136-145)
[2017-11-01 19:02] LABS: ALT (GPT) 23 U/L (10-53)
[2017-11-01 19:04] LABS: ALKALINE PHOSPHATASE 90 U/L (45-117); TOTAL BILIRUBIN ADULT 0.5 MG/DL (0.2-1.0); TOTAL PROTEIN 7.5 GM/DL (6.4-8.2)
[2017-11-01] MEDS ORDERED: CLINDAMYCIN 600 MG/NS PREMIX 50 ML IV ONE (19:30)
[2017-11-01] MEDS ORDERED: ONDANSETRON ODT 4 MG TAB PO ONE (19:30)
[2017-11-01] MEDS ORDERED: MORPHINE SULFATE 2 MG/ML SYRINGE IV PUSH ONE (19:30)
[2017-11-01] MEDS ORDERED: MORPHINE SULFATE 4 MG/ML INJ IV PUSH ONE (19:45)
--- NOTE | 2017-11-01 20:01 | PD ---
HPI Chief Complaint: Skin Problem Time Seen by Provider: 19:12 Travel History International Travel<30 days: No Contact w/Intl Traveler<30days: No Traveled to known affect area: No History of Present Illness HPI 66-year-old female to the ED for evaluation of possible cellulitis to left leg. Patient reports that she woke up today with swelling in redness to her left leg. Per patient she is tonsillitis in the past that she is concerned for the same. Per patient is a little bit different from her previous episode as he does go to the back of her leg and causes pressure-like pain. She has never had that before. She denies any history of blood clots. Denies any injury or trauma. She states that she did had cellulitis and required admission before. She denies any other medical issues. Per patient her pain is 4 out of 10. Denies diabetes or immunosuppression. Allergy to sulfa and fish oil. Denies any nausea or vomiting. No chest pain or shortness of breath. No fevers chills or sweats. PFSH Past Medical History Arthritis: Yes (RHEUMATOID ARTHRITIS) Anxiety: Yes Depression: No Cancer: No Cardiovascular Problems: Yes (HTN ) High Cholesterol: Yes Chemotherapy: No Diabetes: No Diminished Hearing: Yes ([place]) Gastrointestinal Disorders: Yes GERD: Yes Genitourinary: No Hypertension: Yes Implanted Vascular Access Dvce: No Musculoskeletal: Yes Neurologic: Yes Psychiatric: Yes Reproductive: No Respiratory: Yes Radiation Therapy: No Thyroid Disease: Yes (hypothriodism) : 2 Para: 2 Tubal Ligation: Yes Past Surgical History Section: Yes Cholecystectomy: Yes Gynecologic Surgery: Yes () Oral Surgery: Yes Other Surgery: Yes Social History Alcohol Use: Yes ("VERY LIGHT") Tobacco Use: No Substance Use: No Allergies-Medications (Allergen,Severity, Reaction): Coded Allergies: Sulfa (Sulfonamide Antibiotics) (Unverified Allergy, Intermediate, 07/23/17 ) fish oil (Verified Allergy, Intermediate, 07/23/17) Reported Meds & Prescriptions Reported Meds & Active Scripts Active Robaxin (Methocarbamol) 500 Mg Tab 500 Mg PO QID PRN Ibuprofen 800 Mg Tab 800 Mg PO Q8H PRN Tramadol (Tramadol HCl) 50 Mg Tab 50 Mg PO Q4H PRN Keflex (Cephalexin) 500 Mg Cap 500 Mg PO Q6H Doxycycline Hyclate 100 Mg Cap 100 Mg PO BID Reported Gabapentin 400 Mg Cap 400 Cap PO QID Levothyroxine (Levothyroxine Sodium) 50 Mcg Tab 50 Mcg PO DAILY Pantoprazole (Pantoprazole Sodium) 20 Mg Tab 20 Mg PO DAILY Nabumetone 500 Mg Tab 500 Mg PO BID Lisinopril-Hctz 20-25 Mg Tab 1 Tab PO DAILY Review of Systems Except as stated in HPI: all other systems reviewed are Neg Physical Exam Narrative GENERAL: SKIN: Warm and dry. HEAD: Atraumatic. Normocephalic. EYES: Pupils equal and round. No scleral icterus. No injection or drainage. ENT: No nasal bleeding or discharge. Mucous membranes pink and moist. Tongue is midline. No uvula deviation. NECK: Trachea midline. No JVD. CARDIOVASCULAR: Regular rate and rhythm. No murmurs, S3, S4. RESPIRATORY: No accessory muscle use. Clear to auscultation. Breath sounds equal bilaterally. GASTROINTESTINAL: Abdomen soft, non-tender, nondistended. Hepatic and splenic margins not palpable. MUSCULOSKELETAL: Extremities without clubbing, cyanosis, or edema. No obvious deformities. Full range of motion of the upper and lower extremities bilaterally. 2+ pulses bilaterally. Patient does have 1+ pitting edema on the left lower leg compared to the right with erythema noted in the anterior and posterior aspect of the leg. Warm to the touch. Some redness noted on the foot itself as well. NEUROLOGICAL: Awake and alert. No obvious cranial nerve deficits. Motor grossly within normal limits. Five out of 5 muscle strength in the arms and legs. Normal speech. PSYCHIATRIC: Appropriate mood and affect; insight and judgment normal. Data Data Last Documented VS Vital Signs Date Time Temp Pulse Resp B/P (MAP) Pulse Ox O2 Delivery O2 Flow Rate FiO2 11/01/17 16:48 98.5 79 18 115/60 (78) 95 Orders Orders Complete Blood Count With Diff (11/01/17 16:51) Comprehensive Metabolic Panel (11/01/17 16:51) Clindamycin 600 Mg/Ns Premix (Cleocin 60 (11/01/17 19:30) Us Leg Venous Doppler (11/01/17 ) Ondansetron Odt (Zofran Odt) (11/01/17 19:30) C-Reactive Protein (Crp) (11/01/17 19:20) Lactic Acid Sepsis Protocol (11/01/17 19:20) Morphine Inj (Morphine Inj) (11/01/17 19:45) Labs Laboratory Tests Test 11/01/17 18:00 11/01/17 20:20 White Blood Count 9.1 TH/MM3 Red Blood Count 4.53 MIL/MM3 Hemoglobin 13.2 GM/DL Hematocrit 40.8 % Mean Corpuscular Volume 90.0 FL Mean Corpuscular Hemoglobin 29.1 PG Mean Corpuscular Hemoglobin Concent 32.3 % Red Cell Distribution Width 14.0 % Platelet Count 217 TH/MM3 Mean Platelet Volume 8.9 FL Neutrophils (%) (Auto) 54.9 % Lymphocytes (%) (Auto) 30.4 % Monocytes (%) (Auto) 9.6 % Eosinophils (%) (Auto) 4.5 % Basophils (%) (Auto) 0.6 % Neutrophils # (Auto) 5.0 TH/MM3 Lymphocytes # (Auto) 2.8 TH/MM3 Monocytes # (Auto) 0.9 TH/MM3 Eosinophils # (Auto) 0.4 TH/MM3 Basophils # (Auto) 0.1 TH/MM3 CBC Comment DIFF FINAL Differential Comment Blood Urea Nitrogen 19 MG/DL Creatinine 1.04 MG/DL Random Glucose 77 MG/DL Total Protein 7.5 GM/DL Albumin 3.4 GM/DL Calcium Level 9.1 MG/DL Alkaline Phosphatase 90 U/L Aspartate Amino Transf (AST/SGOT) 24 U/L Alanine Aminotransferase (ALT/SGPT) 23 U/L Total Bilirubin 0.5 MG/DL Sodium Level 139 MEQ/L Potassium Level 3.8 MEQ/L Chloride Level 101 MEQ/L Carbon Dioxide Level 27.4 MEQ/L Anion Gap 11 MEQ/L Estimat Glomerular Filtration Rate 53 ML/MIN [facility] Medical Decision Making Medical Screen Exam Complete: Yes Emergency Medical Condition: Yes Medical Record Reviewed: Yes Interpretation(s) CBC & BMP Diagram 11/01/17 18:00 Total Protein 7.5, Albumin 3.4, Calcium Level 9.1, Alkaline Phosphatase 90, Aspartate Amino Transf (AST/SGOT) 24, Alanine Aminotransferase (ALT/SGPT) 23, Total Bilirubin 0.5 Differential Diagnosis Sepsis versus cellulitis versus DVT Narrative Course 66-year-old female that presents to the ED for evaluation of left leg cellulitis. Patient was properly examined and was found to have signs and symptoms consistent appears to be acute cellulitis. Possible DVT cannot be rule out. Labs and imaging order. Patient was start IV pain medications and clindamycin. Labs and imaging still pending at the writing of this note. Case signed out to Ever Puente PA-C pending disposition and plan. Juan C Coates November 01, 2017 20:01
[2017-11-01 20:15] VITALS: BP 139/58; PULSE 71; RESP 17; O2SAT 98
--- NOTE | 2017-11-01 20:36 | PD ---
Data Data Last Documented VS Vital Signs Date Time Temp Pulse Resp B/P (MAP) Pulse Ox O2 Delivery O2 Flow Rate FiO2 11/01/17 22:19 66 16 116/57 (76) 95 Room Air 11/01/17 16:48 98.5 Orders Orders Complete Blood Count With Diff (11/01/17 16:51) Comprehensive Metabolic Panel (11/01/17 16:51) Clindamycin 600 Mg/Ns Premix (Cleocin 60 (11/01/17 19:30) Us Leg Venous Doppler (11/01/17 ) Ondansetron Odt (Zofran Odt) (11/01/17 19:30) C-Reactive Protein (Crp) (11/01/17 19:20) Lactic Acid Sepsis Protocol (11/01/17 19:20) Morphine Inj (Morphine Inj) (11/01/17 19:45) Ed Discharge Order (11/01/17 22:41) Labs Laboratory Tests Test 11/01/17 18:00 11/01/17 20:20 White Blood Count 9.1 TH/MM3 Red Blood Count 4.53 MIL/MM3 Hemoglobin 13.2 GM/DL Hematocrit 40.8 % Mean Corpuscular Volume 90.0 FL Mean Corpuscular Hemoglobin 29.1 PG Mean Corpuscular Hemoglobin Concent 32.3 % Red Cell Distribution Width 14.0 % Platelet Count 217 TH/MM3 Mean Platelet Volume 8.9 FL Neutrophils (%) (Auto) 54.9 % Lymphocytes (%) (Auto) 30.4 % Monocytes (%) (Auto) 9.6 % Eosinophils (%) (Auto) 4.5 % Basophils (%) (Auto) 0.6 % Neutrophils # (Auto) 5.0 TH/MM3 Lymphocytes # (Auto) 2.8 TH/MM3 Monocytes # (Auto) 0.9 TH/MM3 Eosinophils # (Auto) 0.4 TH/MM3 Basophils # (Auto) 0.1 TH/MM3 CBC Comment DIFF FINAL Differential Comment Blood Urea Nitrogen 19 MG/DL Creatinine 1.04 MG/DL Random Glucose 77 MG/DL Total Protein 7.5 GM/DL Albumin 3.4 GM/DL Calcium Level 9.1 MG/DL Alkaline Phosphatase 90 U/L Aspartate Amino Transf (AST/SGOT) 24 U/L Alanine Aminotransferase (ALT/SGPT) 23 U/L Total Bilirubin 0.5 MG/DL Sodium Level 139 MEQ/L Potassium Level 3.8 MEQ/L Chloride Level 101 MEQ/L Carbon Dioxide Level 27.4 MEQ/L Anion Gap 11 MEQ/L Estimat Glomerular Filtration Rate 53 ML/MIN Lactic Acid Level 0.9 mmol/L C-Reactive Protein 5.90 MG/DL [facility] Medical Record Reviewed: Yes Supervised Visit with LORIE: No Narrative Course See previous providers notes. Briefly this is a 58-year-old female who developed pain and erythema to the left lower extremity/dorsal left foot. Symptoms started earlier today. On examination she has a focal area of erythema on the anterior left lower talbot and dorsal left foot as well as some dry cracking skin which is likely the source of the cellulitic changes. Pulses are intact. There is no lower extremity pitting edema. She is afebrile. She is not tachycardic. Received a dose of clindamycin prior to my examination. CBC is unremarkable. CMP is unremarkable. At this point time the plan will be to treat the patient is an outpatient. Per chart review she has had similar cellulitic infectious process and left lower extremity in the past and she has been treated successfully with doxycycline and Keflex. She will be discharged with the same. Recommended return for any acutely new or worsening symptoms in the follow-up with primary care physician in 2-3 days for recheck. Diagnosis Primary Impression: Cellulitis of left lower extremity Additional Instruction: Medication as prescribed. Elevate the affected leg. Warm compresses the affected area several times a day 15 minutes at a time. Follow-up with primary care physician in 2-3 days for recheck. Return for any acutely new or worsening symptoms. Med/Other Pt SpecificInfo: Prescription(s) given Scripts Cephalexin (Keflex) 500 Mg Cap 500 MG PO Q8H for Infection, #30 CAP 0 Refills Prov: Yin Rosen MD 11/01/17 Doxycycline Hyclate (Doxycycline Hyclate) 100 Mg Cap 100 MG PO BID for Infection, #20 CAP 0 Refills Prov: Yin Rosen MD 11/01/17 Disposition: 01 DISCHARGE HOME Condition: Stable Ever Puente November 01, 2017 20:36
[2017-11-01 22:19] VITALS: BP 116/57; PULSE 66; RESP 16; O2SAT 95
[2017-11-01] MEDS ORDERED: CEPH-460 PO (22:19)
[2017-11-01] MEDS ORDERED: DOXY100C PO (22:19)
--- NOTE | 2017-11-01 22:37 | RADRPT ---
EXAM DATE: 11/01/2017 10:32 PM EDT AGE/SEX: 66 years / Female INDICATIONS: Left leg pain. CLINICAL DATA: This is the patient's subsequent encounter. Patient reports that signs and symptoms h ave been present for 4 - 6 months and indicates a pain score of 4/10. MEDICAL/SURGICAL HISTORY: Hypothyroidism. Hypertension. Hypercholesterolemia. Hard of hearin g. Dentures. Rheumatoid arthritis. Cholecystectomy. Tubal ligation. section. COMPARISON: [facility] [place], US LEG LEFT VENOUS DOPPLER, 06/11/2017. . TECHNIQUE: Venous ultrasound of both lower extremities was performed from the inguinal ligament to t he proximal calf. Real-time, color Doppler and spectral tracing, compression and augmentation techni ques were used. FINDINGS: There is normal compressibility of the deep venous system from the inguinal region to the proximal ca lf. No echogenic clot is seen in the lumen of the common femoral, femoral, popliteal, and posterior tibial veins. There is a normal response of the venous system to proximal and distal augmentation an d respiration. CONCLUSION: No DVT. Electronically signed by: Alexander Mixon MD 11/01/2017 10:35 PM EDT
== END 2017-11-01 23:07 | disposition home or self-care (01) ==
LOC: NEPE 16:05
DX: L03.116 Cellulitis of left lower limb (principal); M79.605 Pain in left leg; E03.9 Hypothyroidism, unspecified; I10 Essential (primary) hypertension; K21.9 Gastro-esophageal reflux disease without esophagitis
CPT/HCPCS: 80053; 83605; 85025; 86140; 93971; 96374; 96375; 99284; J2270

== ENCOUNTER 2018-02-24 18:00 | Inpatient (IN) ==
[2018-02-24] MEDS ORDERED: MethylPREDNISolone Sod Succinate Inj 125 MG/2 ML Vial IV.PUSH ONE (18:14)
--- NOTE | 2018-02-24 18:18 | ED ---
HPI General Chief Complaint: Shortness of Breath/Dyspnea Stated Complaint: breathing issues Time Seen by Provider: 02/24/18 18:14 Source: patient and family Mode of arrival: ambulatory Limitations: no limitations History of Present Illness 67-year-old female patient with history of COPD, presents to the ER today brought in with a friend because of shortness of breath that got worse today, coughing with cartwright phlegm, fevers, and states that she has been having diarrhea as well. She denies any current chest pains, abdominal pains, or other symptoms. Related Data Allergies Allergy/AdvReac Type Severity Reaction Status Date / Time fish oil Allergy Intermediate Verified 07/23/17 12:50 Sulfa (Sulfonamide Allergy Intermediate Unverified 07/23/17 12:50 Antibiotics) Review of Systems ROS: all other systems reviewed are negative PMFSH History History Provided By: Patient Medical History Medical History Diabetes (Acute) GERD (gastroesophageal reflux disease) (Acute) Neuropathy (Acute) Social History Social History Substance History: No History of Abuse Second Hand Smoke Exposure: No Smoking Status: Never smoker Tobacco Type: Cigarettes How Often Do You Have a Drink Containing Alcohol: Never Recent Travel in [facility] within the Last 8 Weeks: No Recent Out of Country Travel within the Last 8 Weeks: No Exam Narrative Exam Narrative: GENERAL: Well-developed elderly female patient currently and moderate respiratory distress. Awake and oriented 3. Very hard of hearing. SKIN: Focused skin assessment warm/dry. HEAD: Atraumatic. Normocephalic. EYES: Pupils equal and round. No scleral icterus. No injection or drainage. ENT: No nasal bleeding or discharge. Mucous membranes pink and moist. NECK: Trachea midline. No JVD. CARDIOVASCULAR: Regular rate and rhythm. No murmur appreciated. RESPIRATORY: No accessory muscle use. Wheezing bilaterally. Breath sounds equal bilaterally. GASTROINTESTINAL: Abdomen soft, non-tender, nondistended. Hepatic and splenic margins not palpable. MUSCULOSKELETAL: No obvious deformities. No clubbing. No cyanosis. No edema. NEUROLOGICAL: Awake and alert. No obvious cranial nerve deficits. Motor grossly within normal limits. Normal speech. PSYCHIATRIC: Appropriate mood and affect; insight and judgment normal. Course Initial Documented Vital Signs Temperature 101.4 F H 02/24/18 18:13 Pulse Rate 95 H 02/24/18 18:13 Respiratory Rate 18 02/24/18 18:13 Blood Pressure 210/86 H 02/24/18 18:13 Pulse Oximetry 94 L 02/24/18 18:13 Last Documented Vital Signs Temperature 101.4 F H 02/24/18 18:13 Pulse Rate 101 H 02/24/18 19:00 Respiratory Rate 18 02/24/18 19:00 Blood Pressure 162/78 H 02/24/18 19:00 Pulse Oximetry 96 02/24/18 19:21 Sign Out Sign Out Data: Patient Sign Out occurred on 02/24/18 at 19:13. Patient's care was discussed, and care was transferred from Lisa Perez MD to Malou Carmona MD. Sign Out Comment: Case is signed out to Dr. Carmona at 7 PM awaiting lab work and admission. Last updated by Lisa Perez MD at 02/24/18 19:05 Post-Handoff Eval: Accepted in transfer of care Medical Decision Making MDM Narrative Medical decision making narrative: Chest x-ray shows bilateral interstitial infiltrates. She is febrile in the ER, IV antibiotics were initiated after cultures were drawn. Solu-Medrol nebulizers ordered for the patient. Case is signed out at [address] Carmona awaiting workup. At 8:35 PM patient is symptomatically improved complains about pain and redness to her left anterior lower leg and foot is identified to have cellulitic changes which may also be contributing to her leukocytosis chest x-ray reveals no lobar infiltrate or volume overload BNP is not elevated patient responsive to updraft treatments has received IV antibiotic for community-acquired pneumonia presumptively administered prior to assuming care of patient. This point time patient will require admission for ongoing IV antibiotic management and for management of exacerbation of COPD. Call placed to [facility] service MD for admission. Patient is aware of plan for admission and is agreeable. Medical Screen Exam Complete: Yes Emergency Medical Condition: Yes Differential Diagnosis Differential Diagnosis: COPD exacerbation versus pneumonia versus CHF Medical Records Medical records reviewed: Yes I reviewed the patient's medical records. Lab Data Lab results reviewed: Yes I reviewed the patient's lab results. Result diagrams: 02/24/18 18:24 02/24/18 18:24 Lab Results 09/14/18 09/14/18 09/14/18 Range/Units 18:24 18:24 18:24 WBC 16.9 H (4.0-11.0) th/mm3 RBC 4.39 (4.00-5.30) mil/mm3 Hgb 13.1 (11.6-15.3) gm/dL Hct 40.3 (35.0-46.0) % MCV 91.9 (80.0-100.0) fL MCH 29.9 (27.0-34.0) pg MCHC 32.5 (32.0-36.0) % RDW 14.0 (11.6-17.2) % Plt Count 174 (150-450) th/mm3 MPV 9.0 (7.0-11.0) fL Neut % (Auto) 79.9 H (16.0-70.0) % Lymph % (Auto) 13.3 (9.0-44.0) % [place] % (Auto) 4.9 (0.0-8.0) % Eos % (Auto) 1.5 (0.0-4.0) % Baso % (Auto) 0.4 (0.0-2.0) % Neut # (Auto) 13.5 H (1.8-7.7) th/mm3 Lymph # (Auto) 2.3 (1.0-4.8) th/mm3 [place] # (Auto) 0.8 (0.0-0.9) th/mm3 Eos # (Auto) 0.3 (0.0-0.4) th/mm3 Baso # (Auto) 0.1 (0.0-0.2) th/mm3 WBC Differential . Differential Comment Auto diff final Sodium 140 (136-145) meq/L Potassium 3.8 (3.5-5.1) meq/L Chloride 105 (98-107) meq/L Carbon Dioxide 26.9 (21.0-32.0) meq/L Anion Gap 8 (5-15) meq/L BUN 9 (7-18) mg/dL Creatinine 1.00 (0.50-1.00) mg/dL Estimated GFR 55 L (>89) mL/min Random Glucose 99 (74-106) mg/dL Lactic Acid 1.5 (0.4-2.0) mmol/L Calcium 8.6 (8.5-10.1) mg/dL Total Bilirubin 0.4 (0.2-1.0) mg/dL AST 14 L (15-37) U/L ALT 17 (10-53) U/L Alkaline Phosphatase 97 (45-117) U/L Troponin I Less than 0.02 L (0.02-0.05) ng/mL B-Natriuretic Peptide (0-100) pg/mL Total Protein 7.9 (6.4-8.2) g/dL Albumin 3.5 (3.4-5.0) g/dL 02/24/18 Range/Units 18:24 WBC (4.0-11.0) th/mm3 RBC (4.00-5.30) mil/mm3 Hgb (11.6-15.3) gm/dL Hct (35.0-46.0) % MCV (80.0-100.0) fL MCH (27.0-34.0) pg MCHC (32.0-36.0) % RDW (11.6-17.2) % Plt Count (150-450) th/mm3 MPV (7.0-11.0) fL Neut % (Auto) (16.0-70.0) % Lymph % (Auto) (9.0-44.0) % [place] % (Auto) (0.0-8.0) % Eos % (Auto) (0.0-4.0) % Baso % (Auto) (0.0-2.0) % Neut # (Auto) (1.8-7.7) th/mm3 Lymph # (Auto) (1.0-4.8) th/mm3 [place] # (Auto) (0.0-0.9) th/mm3 Eos # (Auto) (0.0-0.4) th/mm3 Baso # (Auto) (0.0-0.2) th/mm3 WBC Differential Differential Comment Sodium (136-145) meq/L Potassium (3.5-5.1) meq/L Chloride (98-107) meq/L Carbon Dioxide (21.0-32.0) meq/L Anion Gap (5-15) meq/L BUN (7-18) mg/dL Creatinine (0.50-1.00) mg/dL Estimated GFR (>89) mL/min Random Glucose (74-106) mg/dL Lactic Acid (0.4-2.0) mmol/L Calcium (8.5-10.1) mg/dL Total Bilirubin (0.2-1.0) mg/dL AST (15-37) U/L ALT (10-53) U/L Alkaline Phosphatase (45-117) U/L Troponin I (0.02-0.05) ng/mL B-Natriuretic Peptide 51 (0-100) pg/mL Total Protein (6.4-8.2) g/dL Albumin (3.4-5.0) g/dL Imaging Data Attestation: I personally reviewed and interpreted this imaging study as follows : Radiologist's impression: Chest X-Ray 02/24/18 18:15 CONCLUSION: Cardiomegaly without appreciable pulmonary vascular engorgement. ECG Data Attestation: I personally reviewed and interpreted this ECG as follows: Interpretation: EKG: Sinus rhythm rate 90 artifact present at baseline no acute ST elevation injury pattern or ectopy noted Discharge Plan Discharge Disposition Patient Disposition: 30 Still Patient Discharge Details Anticipated Discharge Date: 02/24/18 Diagnosis: Community acquired pneumonia, Acute exacerbation of chronic obstructive airways disease, Cellulitis of left lower limb Physicians Team ED Provider: Malou Carmona Primary Care Provider: UNKNOWN, Discharge Interventions Interventions: Vital Signs Last Done: 02/24/18 19:00 Status ED Status: With Doctor
[2018-02-24] MEDS ORDERED: Azithromycin Inj 500 MG in Sodium Chlor 0.9% Inj 250 ML IV.SIG ONE (18:37)
--- NOTE | 2018-02-24 18:56 | XR ---
EXAM DATE: 02/24/2018 6:49 PM EDT AGE/SEX: 67 years / Female INDICATIONS: Shortness of breath. CLINICAL DATA: This is the patient's initial encounter. Patient reports that signs and symptoms have been present for 2 days and indicates a pain score of 0/10. MEDICAL/SURGICAL HISTORY: . Hypercholesterolemia. Hypertension Gastroesophageal reflux diseas e. Hypothyroidism . Tubal ligation. Cholecystectomy. COMPARISON: [facility] [place], [place]. . FINDINGS: A single AP view of the chest demonstrates mild cardiomegaly. Motion artifact degrades evaluation of the pulmonary vasculature. No gross engorgement observed. Lungs are clear. Elevation of the right hem idiaphragm is long-term stable. No effusions. Bony structures are intact. CONCLUSION: Cardiomegaly without appreciable pulmonary vascular engorgement. Electronically signed by: Jose L Medina MD 02/24/2018 6:55 PM EDT
[2018-02-24 19:07] LABS: Baso # (Auto) 0.1 th/mm3 (0.0-0.2); Baso % (Auto) 0.4 % (0.0-2.0); Eos # (Auto) 0.3 th/mm3 (0.0-0.4); Eos % (Auto) 1.5 % (0.0-4.0); Hematocrit 40.3 % (35.0-46.0); Hemoglobin 13.1 gm/dL (11.6-15.3); Lymph # (Auto) 2.3 th/mm3 (1.0-4.8); Lymph % (Auto) 13.3 % (9.0-44.0); Mean Corpuscular HGB Conc 32.5 % (32.0-36.0); Mean Corpuscular Hemoglobin 29.9 pg (27.0-34.0); Mean Corpuscular Volume 91.9 fL (80.0-100.0); Mono # (Auto) 0.8 th/mm3 (0.0-0.9); Mono % (Auto) 4.9 % (0.0-8.0); Neut # (Auto) 13.5 th/mm3 (1.8-7.7); Neut % (Auto) 79.9 % (16.0-70.0); Platelet Count 174 th/mm3 (150-450); Red Blood Count 4.39 mil/mm3 (4.00-5.30); White Blood Count 16.9 th/mm3 (4.0-11.0)
[2018-02-24 19:36] LABS: Albumin 3.5 g/dL (3.4-5.0); Anion Gap 8 meq/L (5-15); Aspartate Aminotransferase 14 U/L (15-37); Blood Urea Nitrogen 9 mg/dL (7-18); Calcium 8.6 mg/dL (8.5-10.1); Carbon Dioxide 26.9 meq/L (21.0-32.0); Chloride 105 meq/L (98-107); Glomerular Filtration Rate 55 mL/min (>89); Glucose,Random 99 mg/dL (74-106); Potassium 3.8 meq/L (3.5-5.1); Sodium 140 meq/L (136-145)
[2018-02-24 19:37] LABS: Alanine Aminotransferase 17 U/L (10-53)
[2018-02-24 19:41] LABS: Alkaline Phosphatase 97 U/L (45-117); Total Protein 7.9 g/dL (6.4-8.2)
[2018-02-24] MEDS ORDERED: Acetaminophen 325 MG Tablet PO PRN (21:03)
[2018-02-24] MEDS ORDERED: Dextrose 50% in Water 50 ML Vial IV.PUSH PRN (21:03)
[2018-02-24] MEDS ORDERED: Bisacodyl 10 MG Supp RECTAL PRN (21:03)
--- NOTE | 2018-02-24 21:05 | P.HPIM ---
History of Present Illness Primary Care Physician: UNKNOWN History of Present Illness: This is a 67-year-old female with a PMH of HTN, DM, COPD and Peripheral Neuropathy who presented to the ER with complaints of SOB and "chills". States symptoms have been ongoing x5 days, now progressively worse. Notes productive cough w/ green/cedeno colored sputum, +wheezing. Not on Home O2, using home MDI/ Nebulizers w/ no improvement. Denies chest pain or sick contacts. Also notes "my leg infection is back", has not been on antibiotics as outpatient. On arrival, BP 210/86, HR 95, O2 sat 94% on RA, Temp 101.4. WBC 16.9. Chemistry essentially unremarkable. Troponin negative. CXR with cardiomegaly, no other acute findings. S/p DuoNeb, Solu-Medrol and Zithro/Cefepime in ER. - Diagnosis (1) SIRS (systemic inflammatory response syndrome) (2) COPD (chronic obstructive pulmonary disease) (3) PNA (pneumonia) (4) Cellulitis of left lower limb (5) DM (diabetes mellitus) Review of Systems PAST FAMILY HISTORY: Reviewed, history of DM per All other systems reviewed negative except as stated in HPI [facility] - History History Provided By: Patient - Medical History Medical History: Medical History (Last Reviewed 02/24/18 @ 18:18 by Lisa Perez MD) Diabetes GERD (gastroesophageal reflux disease) Neuropathy - Tobacco History Second Hand Smoke Exposure: No Tobacco Use In Past 30 Days: No Smoking Status: Never smoker Tobacco Type: Cigarettes - Alcohol History How Often Do You Have a Drink Containing Alcohol: Never - Substance Use History Substance History: No History of Abuse - Travel History Recent Travel in the [place] Within the Last 8 Weeks: No Recent Travel Out of the Country Within the Last 8 Weeks: No - Immunization History Tetanus Immunization: Unsure Hx Influenza Vaccine This Season: Unable to Assess Medications and Allergies Active Medications: Active Medications Albuterol (Duoneb Neb (Carole)) 1 ampul NEB Q4HR WHILE AWAKE NEB CAROLE Albuterol (Duoneb Neb (Prn)) 1 ampul NEB Q2HR NEB PRN PRN Reason: SOB/WHEEZING Budesonide/Formoterol Fumarate (Symbicort 160/4.5 Mcg Inh) 2 puff INH BID CAROLE Guaifenesin (Mucinex Er) 600 mg PO BID CAROLE Azithromycin 500 mg/ Sodium (Chloride) 250 mls @ 250 mls/hr IV.SIG Q24H CAROLE Ceftriaxone Sodium 1,000 mg/ (Sodium Chloride) 100 mls @ 200 mls/hr IV.SIG Q24H CAROLE Methylprednisolone Sodium Succinate (Solumedrol Inj) 40 mg IV.PUSH Q6H CAROLE Allergies Allergy/AdvReac Type Severity Reaction Status Date / Time fish oil Allergy Intermediate Verified 07/23/17 12:50 Sulfa (Sulfonamide Allergy Intermediate Unverified 07/23/17 12:50 Antibiotics) Home Medications Medication Instructions Recorded Confirmed Type No Known Home Medications 02/24/18 02/24/18 History Exam Vital signs: Vital Signs 02/24/18 18:13 02/24/18 18:32 02/24/18 19:00 Temperature 101.4 F H Pulse Rate 95 H 97 H 101 H Respiratory Rate 18 16 18 Blood Pressure 210/86 H 162/78 H Pulse Oximetry 94 L 96 02/24/18 19:21 Temperature Pulse Rate Respiratory Rate Blood Pressure Pulse Oximetry 96 Intake & Output 02/24/18 02/24/18 02/25/18 06:59 18:59 06:59 Weight 122.47 kg Narrative: PE: GENERAL: Pleasant middle-aged white female in no acute distress. SKIN: Focused skin assessment warm and dry. HEENT: PERRLA, EOMI. No scleral icterus or conjunctival pallor. No lid lag or facial droop. CARDIOVASCULAR: Regular rate and rhythm. No obvious murmurs to auscultation. No chest tenderness to palpation. RESPIRATORY: No obvious rhonchi. Occasional wheezing. Clear to auscultation. Breath sounds equal bilaterally. GASTROINTESTINAL: Abdomen soft, non-tender, nondistended. BS normal. MUSCULOSKELETAL: Extremities without clubbing, cyanosis, or edema. No obvious deformities. Mild erythema lateral aspect left foot NEUROLOGICAL: Awake, alert and oriented x4. No focal neurologic deficits. Moving both upper and lower extremities spontaneously. PSYCHIATRIC: Appropriate mood and affect. Insight and judgment normal. Results - Labs CBC & Chem 7: 02/24/18 18:24 02/24/18 18:24 Labs: Short CBC 02/24/18 Range/Units 18:24 WBC 16.9 H (4.0-11.0) th/mm3 Hgb 13.1 (11.6-15.3) gm/dL Hct 40.3 (35.0-46.0) % Plt Count 174 (150-450) th/mm3 BMP 02/24/18 18:24 Sodium 140 Potassium 3.8 Chloride 105 Carbon Dioxide 26.9 BUN 9 Creatinine 1.00 Calcium 8.6 Cardiac Enzymes 02/24/18 Range/Units 18:24 Troponin I Less than 0.02 L (0.02-0.05) ng/mL Liver Function 02/24/18 Range/Units 18:24 Total Bilirubin 0.4 (0.2-1.0) mg/dL AST 14 L (15-37) U/L ALT 17 (10-53) U/L Alkaline Phosphatase 97 (45-117) U/L Albumin 3.5 (3.4-5.0) g/dL - Imaging Impressions Chest X-Ray 02/24/18 18:15 CONCLUSION: Cardiomegaly without appreciable pulmonary vascular engorgement. Caprini VTE Risk Assessment Caprini VTE Risk Assessment: No/Low Risk (score <= 1) Caprini Risk Assessment Model: Point Value = 1 Point Value = 2 Point Value = 3 Point Value = 5 Age 41-60 Minor surgery BMI > 25 kg/m2 Swollen legs Varicose veins or History of unexplained or recurrent spontaneous Oral contraceptives or hormone replacement Sepsis (< 1 month) Serious lung disease, including pneumonia (< 1 month) Abnormal pulmonary function Acute myocardial infarction Congestive heart failure (< 1 month) History of inflammatory bowel disease Medical patient at bed rest Age 61-74 Arthroscopic surgery Major open surgery (> 45 min) Laparoscopic surgery (> 45 min) Malignancy Confined to bed (> 72 hours) Immobilizing plaster cast Central venous access Age >= 75 History of VTE Family history of VTE Factor V Leiden Prothrombin [id number] Lupus anticoagulant Anticardiolipin antibodies Elevated serum homocysteine Heparin-induced thrombocytopenia Other congenital or acquired thrombophilia Stroke (< 1 month) Elective arthroplasty Hip, pelvis, or leg fracture Acute spinal cord injury (< 1 month) Prophylaxis Regimen: Total Risk Factor Score Risk Level Prophylaxis Regimen 0-1 Low Early ambulation 2 Moderate Order ONE of the following: *Sequential Compression Device (SCD) *Heparin 5000 units SQ BID 3-4 Higher Order ONE of the following medications: *Heparin 5000 units SQ TID *Enoxaparin/Lovenox 40 mg SQ daily (WT < 150 kg, CrCl > 30 mL/min) *Enoxaparin/Lovenox 30 mg SQ daily (WT < 150 kg, CrCl > 10-29 mL/min) *Enoxaparin/Lovenox 30 mg SQ BID (WT < 150 kg, CrCl > 30 mL/min) AND/OR *Sequential Compression Device (SCD) 5 or more Highest Order ONE of the following medications: *Heparin 5000 units SQ TID (Preferred with Epidurals) *Enoxaparin/Lovenox 40 mg SQ daily (WT < 150 kg, CrCl > 30 mL/min) *Enoxaparin/Lovenox 30 mg SQ daily (WT < 150 kg, CrCl > 10-29 mL/min) *Enoxaparin/Lovenox 30 mg SQ BID (WT < 150 kg, CrCl > 30 mL/min) AND *Sequential Compression Device (SCD) Assessment and Plan - Assessment (1) SIRS (systemic inflammatory response syndrome) Code(s): R65.10 - Systemic inflammatory response syndrome (SIRS) of non- infectious origin without acute organ dysfunction Status: Acute (2) COPD (chronic obstructive pulmonary disease) Code(s): J44.9 - Chronic obstructive pulmonary disease, unspecified Status: Acute (3) PNA (pneumonia) Code(s): J18.9 - Pneumonia, unspecified organism Status: Acute (4) Cellulitis of left lower limb Code(s): L03.116 - Cellulitis of left lower limb Status: Acute (5) DM (diabetes mellitus) Code(s): E11.9 - Type 2 diabetes mellitus without complications Status: Acute - Plan A/P: 1. SIRS/Sepsis: Temp 101.4, HR 95, WBC 16, Source-possibly early PNA, s/p Cefepime/Zithro in ER, will continue w/ IV antibiotics, IVF, repeat labs in am. 2. PNA: CXR w/ no acute infiltrate, images reviewed, however suspect early/ Atypical PNA in light of productive cough and clinical picture, will continue w / IV Abx, DuoNeb, check Sputum Cultures. 3. COPD: Chronic Respiratory Failure w/ Acute Exacerbation, not on Home o2, continue w/ Solu-Medrol 40mg IV q6, DuoNeb q2 prn and q4h, Mucinex, Symbicort. Monitor O2 4. DM: Sliding scale w/ Accu-Cheks, check Hgb A1c. 5. DVT Prophylaxis: Lovenox 6. Social work for d/c planning as needed 7. Case discussed w/ ER physician at length, labs/records/imaging reviewed by me.
[2018-02-24] MEDS: Sod Chloride 0.9% Inj 1,000 ML IV.CONT SCH (23:16)
[2018-02-25] MEDS: MethylPREDNISolone Sod Succinate Inj 40 MG/ML Vial IV.PUSH SCH ×3 (01:27→11:14)
[2018-02-25 06:34] LABS: Hematocrit 35.6 % (35.0-46.0); Hemoglobin 11.5 gm/dL (11.6-15.3); Lymph % (Auto) 5.9 % (9.0-44.0); Mean Corpuscular HGB Conc 32.3 % (32.0-36.0); Mean Corpuscular Hemoglobin 29.9 pg (27.0-34.0); Mean Corpuscular Volume 92.6 fL (80.0-100.0); Mean Platelet Volume 8.7 fL (7.0-11.0); Mono # (Auto) 0.2 th/mm3 (0.0-0.9); Mono % (Auto) 1.4 % (0.0-8.0); Neut # (Auto) 15.7 th/mm3 (1.8-7.7); Neut % (Auto) 92.7 % (16.0-70.0); Platelet Count 155 th/mm3 (150-450); Red Blood Count 3.84 mil/mm3 (4.00-5.30); Red Cell Distribution Width 13.8 % (11.6-17.2); White Blood Count 16.9 th/mm3 (4.0-11.0)
[2018-02-25 07:04] LABS: Alanine Aminotransferase 18 U/L (10-53); Albumin 2.9 g/dL (3.4-5.0); Alkaline Phosphatase 77 U/L (45-117); Anion Gap 9 meq/L (5-15); Aspartate Aminotransferase 14 U/L (15-37); Blood Urea Nitrogen 12 mg/dL (7-18); Calcium 8.2 mg/dL (8.5-10.1); Chloride 108 meq/L (98-107); Glomerular Filtration Rate 54 mL/min (>89); Glucose,Random 203 mg/dL (74-106); Potassium 3.5 meq/L (3.5-5.1); Sodium 142 meq/L (136-145); Total Protein 6.8 g/dL (6.4-8.2)
[2018-02-25 07:53] LABS: Bilirubin,Urine Negative (Negative); Clarity,Urine Clear (Clear); Color,Urine Yellow (Yellw/Straw); Glucose,Urine (UA) Negative (Negative); Leukocyte Esterase,Urine Negative (Negative); Mucus,Urine Few /lpf (Occasional); Nitrite,Urine Negative (Negative); Specific Gravity,Urine 1.012 (1.002-1.035); Squamous Epithelial Cell,Urine <1 /hpf (0-5)
[2018-02-25] MEDS: Enoxaparin Inj 40 MG/0.4 ML Syringe SQ SCH (09:37)
[2018-02-25] MEDS: Insulin NovoLOG Aspart Correctional Sugar Inj SQ SCH ×4 (09:37→22:00)
[2018-02-25] MEDS: guaiFENesin 600 MG ER Tablet PO SCH ×2 (09:37→23:21)
[2018-02-25] MEDS: Senna/Docusate Sodium 8.6/50 MG Tablet PO SCH ×2 (09:37→23:21)
[2018-02-25] MEDS: Sod Chloride 0.9% Inj 1,000 ML IV.CONT SCH ×2 (09:38→17:03)
[2018-02-25] MEDS: Budesonide-Formoterol 160/4.5 MCG 6 GM Inhaler INH SCH (09:39)
[2018-02-25 13:12] LABS: Hemoglobin A1c 5.8 % (4.3-6.0)
--- NOTE | 2018-02-25 13:45 | P.PNIM ---
Subjective Interval history: Patient reports she is feeling slightly better today. Breathing more comfortable. No chest pain. Physical Exam Vital signs: Vital Signs 02/24/18 18:13 02/24/18 18:32 02/24/18 19:00 Temperature 101.4 F H Pulse Rate 95 H 97 H 101 H Respiratory Rate 18 16 18 Blood Pressure 210/86 H 162/78 H Pulse Oximetry 94 L 96 02/24/18 19:21 02/24/18 22:40 02/24/18 23:35 Temperature 97 F L Pulse Rate 80 Respiratory Rate 18 Blood Pressure 165/70 H Pulse Oximetry 96 99 94 L 02/25/18 02:05 02/25/18 04:00 02/25/18 08:00 Temperature 98.3 F 98 F Pulse Rate 79 60 Respiratory Rate 20 18 Blood Pressure 118/59 L 112/60 Pulse Oximetry 97 94 L 92 L 02/25/18 09:00 02/25/18 10:48 02/25/18 12:00 Temperature 98.1 F Pulse Rate 57 L 67 Respiratory Rate 18 Blood Pressure 121/56 L Pulse Oximetry 92 L 93 L Intake & Output 02/24/18 02/25/18 02/25/18 18:59 06:59 18:59 Intake Total 350 / 350 1000 / 1000 Balance 350 / 350 1000 / 1000 Weight 122.47 kg 126.2 kg Intake: IV 350 / 350 1000 / 1000 NS Inj 1,000 ML @ 100 mls/hr IV 1000 / 1000 .CONT .Q10H RAUL Rx#:[id number] Azithromycin Inj 500 MG In NS 250 / 250 Inj 250 ML @ 250 mls/hr IV.SIG ONCE ONE Rx#:[id number] Maxipime Inj 2,000 MG In NS Inj 100 / 100 100 ML @ 200 mls/hr IV.SIG ONCE ONE Rx#:[id number] Other: # Voids 1 Date of Last Bowel Movement 02/24/18 Weight On Admission 122.4 kg Narrative: GENERAL: Morbidly obese female in no acute distress. CARDIOVASCULAR: Normal rate and regular rhythm without murmurs, gallops, or rubs. RESPIRATORY: Air movement is poor. Markedly diminished breath sounds mid lung field and the bases. Occasional rales. GASTROINTESTINAL: Abdomen soft, non-tender, non-distended. Normal active bowel sounds MUSCULOSKELETAL: Extremities with dependent edema bilaterally NEURO: Alert & Oriented x4 to person, place, time, situation. Moves all ext x4 PSYCH: Appropriate mood and affect. Results - Labs CBC & Chem 7: 02/25/18 06:05 02/25/18 06:05 Laboratory Results - last 24 hr 02/24/18 02/24/18 02/24/18 18:24 18:24 18:24 WBC 16.9 H RBC 4.39 Hgb 13.1 Hct 40.3 MCV 91.9 MCH 29.9 MCHC 32.5 RDW 14.0 Plt Count 174 MPV 9.0 Neut % (Auto) 79.9 H Lymph % (Auto) 13.3 Tompkins % (Auto) 4.9 Eos % (Auto) 1.5 Baso % (Auto) 0.4 Neut # (Auto) 13.5 H Lymph # (Auto) 2.3 Tompkins # (Auto) 0.8 Eos # (Auto) 0.3 Baso # (Auto) 0.1 WBC Differential . Differential Comment Auto diff final Sodium 140 Potassium 3.8 Chloride 105 Carbon Dioxide 26.9 Anion Gap 8 BUN 9 Creatinine 1.00 Estimated GFR 55 L POC Glucose Random Glucose 99 Hemoglobin A1c Lactic Acid 1.5 Calcium 8.6 Total Bilirubin 0.4 AST 14 L ALT 17 Alkaline Phosphatase 97 Troponin I Less than 0.02 L B-Natriuretic Peptide Total Protein 7.9 Albumin 3.5 Urine Color Urine Clarity Urine pH Ur Specific Mad[place] Urine Protein Urine Glucose (UA) Urine Ketones Urine Occult Blood Urine Nitrate Urine Bilirubin Urine Urobilinogen Ur Leukocyte Esterase Urine RBC Urine WBC Ur Squamous Epith Cells Urine Mucus Micro UA Comment Ur Microscopic Review Urine Culture Comments 02/24/18 02/25/18 02/25/18 18:24 03:30 06:05 WBC 16.9 H RBC 3.84 L Hgb 11.5 L Hct 35.6 MCV 92.6 MCH 29.9 MCHC 32.3 RDW 13.8 Plt Count 155 MPV 8.7 Neut % (Auto) 92.7 H Lymph % (Auto) 5.9 L Tompkins % (Auto) 1.4 Eos % (Auto) 0.0 Baso % (Auto) 0.0 Neut # (Auto) 15.7 H Lymph # (Auto) 1.0 Tompkins # (Auto) 0.2 Eos # (Auto) 0.0 Baso # (Auto) 0.0 WBC Differential . Differential Comment Auto diff final Sodium Potassium Chloride Carbon Dioxide Anion Gap BUN Creatinine Estimated GFR POC Glucose Random Glucose Hemoglobin A1c Lactic Acid Calcium Total Bilirubin AST ALT Alkaline Phosphatase Troponin I B-Natriuretic Peptide 51 Total Protein Albumin Urine Color Yellow Urine Clarity Clear Urine pH 5.0 Ur Specific Mad[place] 1.012 Urine Protein Negative Urine Glucose (UA) Negative Urine Ketones Negative Urine Occult Blood Negative Urine Nitrate Negative Urine Bilirubin Negative Urine Urobilinogen Less than 2 Ur Leukocyte Esterase Negative Urine RBC Less than 1 Urine WBC 1 Ur Squamous Epith Cells <1 Urine Mucus Few H Micro UA Comment Culture not ind Ur Microscopic Review Not Reportable Urine Culture Comments Culture not ind 02/25/18 02/25/18 02/25/18 06:05 06:05 07:36 WBC RBC Hgb Hct MCV MCH MCHC RDW Plt Count MPV Neut % (Auto) Lymph % (Auto) Tompkins % (Auto) Eos % (Auto) Baso % (Auto) Neut # (Auto) Lymph # (Auto) Tompkins # (Auto) Eos # (Auto) Baso # (Auto) WBC Differential Differential Comment Sodium 142 Potassium 3.5 Chloride 108 H Carbon Dioxide 25.0 Anion Gap 9 BUN 12 Creatinine 1.01 H Estimated GFR 54 L POC Glucose 176 H Random Glucose 203 H D Hemoglobin A1c 5.8 Lactic Acid Calcium 8.2 L Total Bilirubin 0.4 AST 14 L ALT 18 Alkaline Phosphatase 77 Troponin I B-Natriuretic Peptide Total Protein 6.8 D Albumin 2.9 L D Urine Color Urine Clarity Urine pH Ur Specific [place] Urine Protein Urine Glucose (UA) Urine Ketones Urine Occult Blood Urine Nitrate Urine Bilirubin Urine Urobilinogen Ur Leukocyte Esterase Urine RBC Urine WBC Ur Squamous Epith Cells Urine Mucus Micro UA Comment Ur Microscopic Review Urine Culture Comments 02/25/18 11:03 WBC RBC Hgb Hct MCV MCH MCHC RDW Plt Count MPV Neut % (Auto) Lymph % (Auto) Tompkins % (Auto) Eos % (Auto) Baso % (Auto) Neut # (Auto) Lymph # (Auto) [place]pkins # (Auto) Eos # (Auto) Baso # (Auto) WBC Differential Differential Comment Sodium Potassium Chloride Carbon Dioxide Anion Gap BUN Creatinine Estimated GFR POC Glucose 155 H Random Glucose Hemoglobin A1c Lactic Acid Calcium Total Bilirubin AST ALT Alkaline Phosphatase Troponin I B-Natriuretic Peptide Total Protein Albumin Urine Color Urine Clarity Urine pH Ur Specific [place] Urine Protein Urine Glucose (UA) Urine Ketones Urine Occult Blood Urine Nitrate Urine Bilirubin Urine Urobilinogen Ur Leukocyte Esterase Urine RBC Urine WBC Ur Squamous Epith Cells Urine Mucus Micro UA Comment Ur Microscopic Review Urine Culture Comments Microbiology 02/24/18 18:20 Blood - Peripheral Aerobic Blood Culture - Preliminary No growth in 1 day 02/24/18 18:20 Blood - Peripheral Anaerobic Blood Culture - Preliminary No growth in 1 day 02/24/18 18:25 Blood - Peripheral Aerobic Blood Culture - Preliminary No growth in 1 day 02/24/18 18:25 Blood - Peripheral Anaerobic Blood Culture - Preliminary No growth in 1 day 02/24/18 18:44 Nasal Wash Influenza Types A,B Antigen - Final Negative for FLU A and B antigen Infection due to influenza A or B cannot be ruled out since the antigen present in the sample may be below the detection limit of the test. - Imaging Impressions Chest X-Ray 02/24/18 18:15 CONCLUSION: Cardiomegaly without appreciable pulmonary vascular engorgement. Assessment and Plan - Assessment (1) SIRS (systemic inflammatory response syndrome) Code(s): R65.10 - Systemic inflammatory response syndrome (SIRS) of non- infectious origin without acute organ dysfunction Status: Acute (2) COPD (chronic obstructive pulmonary disease) Code(s): J44.9 - Chronic obstructive pulmonary disease, unspecified Status: Acute (3) PNA (pneumonia) Code(s): J18.9 - Pneumonia, unspecified organism Status: Acute (4) Cellulitis of left lower limb Code(s): L03.116 - Cellulitis of left lower limb Status: Acute (5) DM (diabetes mellitus) Code(s): E11.9 - Type 2 diabetes mellitus without complications Status: Acute - Plan 67-year-old female with: 1. SIRS/Sepsis: Temp 101.4, HR 95, WBC 16, Source-possibly early PNA, s/p Cefepime/Zithro in ER, will continue w/ IV antibiotics, IVF. 2. PNA: CXR w/ no acute infiltrate, images reviewed, however suspect early/ Atypical PNA in light of productive cough and clinical picture, will continue w / IV Abx, DuoNeb, sputum cultures pending. 3. COPD: Chronic Respiratory Failure w/ Acute Exacerbation, not on Home o2, transition to oral prednisone, DuoNeb q2 prn and q4h, Mucinex, Symbicort. Monitor O2 4. DM: Sliding scale w/ Accu-Cheks, check Hgb A1c. 5. DVT Prophylaxis: Lovenox
[2018-02-25] MEDS: Azithromycin Inj 500 MG in Sodium Chlor 0.9% Inj 250 ML IV.SIG SCH (22:00)
--- NOTE | 2018-02-25 22:12 | ECG ---
Date Performed: 02/24/2018 Time Performed: 18:21:27 PTAGE: 67 years EKG: Sinus rhythm NORMAL ECG PREVIOUS TRACING : 06/10/2017 23.14 DOCTOR: Tyree Burch Interpretating Date/Time 02/25/2018 22:08:56
[2018-02-25] MEDS: predniSONE 20 MG Tablet PO SCH (23:21)
[2018-02-26] MEDS: Sod Chloride 0.9% Inj 1,000 ML IV.CONT SCH ×2 (03:52→12:23)
[2018-02-26] MEDS: predniSONE 20 MG Tablet PO SCH ×3 (05:18→21:10)
[2018-02-26] MEDS: Budesonide-Formoterol 160/4.5 MCG 6 GM Inhaler INH SCH ×3 (05:18→21:10)
[2018-02-26 06:41] LABS: Hematocrit 35.2 % (35.0-46.0); Hemoglobin 11.5 gm/dL (11.6-15.3); Mean Corpuscular HGB Conc 32.6 % (32.0-36.0); Mean Platelet Volume 9.3 fL (7.0-11.0); Platelet Count 170 th/mm3 (150-450); Red Blood Count 3.83 mil/mm3 (4.00-5.30); Red Cell Distribution Width 13.9 % (11.6-17.2)
[2018-02-26 07:03] LABS: Calcium 8.5 mg/dL (8.5-10.1); Carbon Dioxide 23.7 meq/L (21.0-32.0); Potassium 3.7 meq/L (3.5-5.1)
[2018-02-26] MEDS: Senna/Docusate Sodium 8.6/50 MG Tablet PO SCH ×2 (08:42→21:10)
[2018-02-26] MEDS: guaiFENesin 600 MG ER Tablet PO SCH ×2 (08:42→21:10)
[2018-02-26] MEDS: Enoxaparin Inj 40 MG/0.4 ML Syringe SQ SCH (08:42)
[2018-02-26] MEDS: Insulin NovoLOG Aspart Correctional Sugar Inj SQ SCH ×4 (08:42→23:02)
--- NOTE | 2018-02-26 14:28 | P.PNIM ---
Subjective Interval history: Follow-up for sepsis probably secondary to pneumonia/COPD exacerbation. Patient reports her breathing is about the same today. She reports feeling very weak. No chest pain. Required oxygen overnight, on room air this morning. Physical Exam Vital signs: Vital Signs 02/25/18 16:00 02/25/18 16:23 02/25/18 20:00 Temperature 98.2 F 98.3 F Pulse Rate 64 67 67 Respiratory Rate 18 18 18 Blood Pressure 152/66 H 113/60 Pulse Oximetry 94 L 95 02/25/18 20:21 02/26/18 00:00 02/26/18 04:00 Temperature 97.8 F 97.6 F Pulse Rate 82 71 82 Respiratory Rate 16 20 20 Blood Pressure 122/57 L 120/60 Pulse Oximetry 92 L 95 95 02/26/18 08:00 02/26/18 08:18 02/26/18 09:00 Temperature 97.6 F Pulse Rate 73 58 L Respiratory Rate 18 Blood Pressure 143/63 H Pulse Oximetry 92 L 95 02/26/18 12:00 Temperature 98 F Pulse Rate 75 Respiratory Rate 18 Blood Pressure 116/63 Pulse Oximetry 93 L Intake & Output 02/25/18 02/26/18 02/26/18 18:59 06:59 18:59 Intake Total 1000 / 1000 1350 / 1350 1000 / 1000 Output Total 320 / 320 Balance 680 / 680 1350 / 1350 1000 / 1000 Weight 128.7 kg Intake: IV 1000 / 1000 1350 / 1350 1000 / 1000 NS Inj 1,000 ML @ 100 mls/hr IV 1000 / 1000 1000 / 1000 1000 / 1000 .CONT .Q10H RAUL Rx#:[id number] Azithromycin Inj 500 MG In NS 250 / 250 Inj 250 ML @ 250 mls/hr IV.SIG Q24H RAUL Rx#:[id number] Rocephin Inj 1,000 MG In NS Inj 100 / 100 100 ML @ 200 mls/hr IV.SIG Q24H RAUL Rx#:[id number] Output: Urine 320 / 320 Other: # Voids 3 3 Narrative: GENERAL: Morbidly obese female in no acute distress. CARDIOVASCULAR: Normal rate and regular rhythm without murmurs, gallops, or rubs. RESPIRATORY: Air movement is poor. Markedly diminished breath sounds mid lung field and the bases. Occasional rales and wheezing. GASTROINTESTINAL: Abdomen soft, non-tender, non-distended. Normal active bowel sounds MUSCULOSKELETAL: Extremities with dependent edema bilaterally NEURO: Alert & Oriented x4 to person, place, time, situation. Moves all ext x4 PSYCH: Appropriate mood and affect. Results - Labs CBC & Chem 7: 02/26/18 06:11 02/26/18 06:11 Laboratory Results - last 24 hr 02/25/18 02/25/18 02/26/18 16:56 22:23 06:11 WBC 17.0 H RBC 3.83 L Hgb 11.5 L Hct 35.2 MCV 92.0 MCH 30.0 MCHC 32.6 RDW 13.9 Plt Count 170 MPV 9.3 Sodium Potassium Chloride Carbon Dioxide Anion Gap BUN Creatinine Estimated GFR POC Glucose 146 H 218 H Random Glucose Calcium 02/26/18 02/26/18 02/26/18 06:11 07:20 11:25 WBC RBC Hgb Hct MCV MCH MCHC RDW Plt Count MPV Sodium 141 Potassium 3.7 Chloride 109 H Carbon Dioxide 23.7 Anion Gap 8 BUN 19 H Creatinine 0.84 Estimated GFR 67 L POC Glucose 151 H 171 H Random Glucose 146 H Calcium 8.5 Microbiology 02/24/18 18:20 Blood - Peripheral Aerobic Blood Culture - Preliminary No growth in 2 days 02/24/18 18:20 Blood - Peripheral Anaerobic Blood Culture - Preliminary No growth in 2 days 02/24/18 18:25 Blood - Peripheral Aerobic Blood Culture - Preliminary No growth in 2 days 02/24/18 18:25 Blood - Peripheral Anaerobic Blood Culture - Preliminary No growth in 2 days Assessment and Plan - Assessment (1) SIRS (systemic inflammatory response syndrome) Code(s): R65.10 - Systemic inflammatory response syndrome (SIRS) of non- infectious origin without acute organ dysfunction Status: Acute (2) COPD (chronic obstructive pulmonary disease) Code(s): J44.9 - Chronic obstructive pulmonary disease, unspecified Status: Acute (3) PNA (pneumonia) Code(s): J18.9 - Pneumonia, unspecified organism Status: Acute (4) Cellulitis of left lower limb Code(s): L03.116 - Cellulitis of left lower limb Status: Acute (5) DM (diabetes mellitus) Code(s): E11.9 - Type 2 diabetes mellitus without complications Status: Acute - Plan 67-year-old female with: Sepsis probably secondary to early atypical pneumonia and COPD exacerbation: -Continue antibiotics with Rocephin and azithromycin. -Blood cultures so far negative. -Scheduled breathing treatments. Continue steroids. -Sputum culture if she is able to expectorate. Acute COPD exacerbation: Continue oral steroids. Scheduled breathing treatments , Symbicort, Mucinex. - Supplemental oxygen as needed. Physical deconditioning: - PT to evaluate. DM: Sliding scale w/ Accu-Cheks, check Hgb A1c. DVT Prophylaxis: Lovenox Discharge Planning: PT to evaluate. Continue current treatment. If continues to progress, may consider DC tomorrow.
[2018-02-26] MEDS: Azithromycin Inj 500 MG in Sodium Chlor 0.9% Inj 250 ML IV.SIG SCH (21:10)
[2018-02-27] MEDS: predniSONE 20 MG Tablet PO SCH ×4 (05:48→21:23)
[2018-02-27] MEDS: guaiFENesin 600 MG ER Tablet PO SCH ×2 (08:24→20:36)
[2018-02-27] MEDS: Enoxaparin Inj 40 MG/0.4 ML Syringe SQ SCH (08:24)
[2018-02-27] MEDS: Senna/Docusate Sodium 8.6/50 MG Tablet PO SCH ×2 (08:25→20:36)
[2018-02-27] MEDS: Budesonide-Formoterol 160/4.5 MCG 6 GM Inhaler INH SCH ×2 (08:26→20:43)
[2018-02-27] MEDS: Insulin NovoLOG Aspart Correctional Sugar Inj SQ SCH ×4 (10:35→20:42)
--- NOTE | 2018-02-27 16:07 | P.PNIM ---
Subjective Interval history: This is a 67-year-old female with a PMH of HTN, DM, COPD and Peripheral Neuropathy who presented to the ER with complaints of SOB and "chills". States symptoms have been ongoing x5 days, now progressively worse. Notes productive cough w/ green/cedeno colored sputum, +wheezing. Not on Home O2, using home MDI/ Nebulizers w/ no improvement. Denies chest pain or sick contacts. Also notes "my leg infection is back", has not been on antibiotics as outpatient. On arrival, BP 210/86, HR 95, O2 sat 94% on RA, Temp 101.4. WBC 16.9. Chemistry essentially unremarkable. Troponin negative. CXR with cardiomegaly, no other acute findings. S/p DuoNeb, Solu-Medrol and Zithro/Cefepime in ER. 02-25 Patient reports she is feeling slightly better today. Breathing more comfortable. No chest pain. 02-26 Follow-up for sepsis probably secondary to pneumonia/COPD exacerbation. Patient reports her breathing is about the same today. She reports feeling very weak. No chest pain. Required oxygen overnight, on room air this morning. 02-27 NOW OFF OXYGEN COMPLAINS OF BURNING AND ITCHING IN VAGINAL REGION WILL START DIFLUCAN STILL WHEEZING OFF OXYGEN] AM LABS HOPEFULLY HOME TOMORROW WILL NEED NEBULIZER AT [place] Physical Exam Vital signs: Vital Signs 02/26/18 16:24 02/26/18 20:00 02/26/18 21:31 Temperature 98.4 F Pulse Rate 75 69 69 Respiratory Rate 18 22 22 Blood Pressure 157/80 H Pulse Oximetry 96 95 02/27/18 00:00 02/27/18 04:00 02/27/18 08:00 Temperature 97.6 F 97.8 F 98.5 F Pulse Rate 72 74 75 Respiratory Rate 16 20 18 Blood Pressure 140/65 162/74 H 160/81 H Pulse Oximetry 95 94 L 97 02/27/18 08:05 02/27/18 08:39 02/27/18 11:00 Temperature Pulse Rate 71 65 96 H Respiratory Rate 16 Blood Pressure Pulse Oximetry 94 L 02/27/18 11:43 02/27/18 12:00 Temperature 97.8 F Pulse Rate 73 70 Respiratory Rate 16 18 Blood Pressure 160/77 H Pulse Oximetry 93 L Intake & Output 09/02/27/18 02/27/18 18:59 06:59 18:59 Intake Total 1999 830 / 830 Balance 1999 830 / 830 Weight 129.3 kg Intake: IV 1999 350 / 350 NS Inj 1,000 ML @ 100 mls/hr IV 1999 .CONT .Q10H RAUL Rx#:[id number] Azithromycin Inj 500 MG In NS 250 / 250 Inj 250 ML @ 250 mls/hr IV.SIG Q24H RAUL Rx#:[id number] Rocephin Inj 1,000 MG In NS Inj 100 / 100 100 ML @ 200 mls/hr IV.SIG Q24H RAUL Rx#:[id number] Oral 480 / 480 Other: # Voids 3 Date of Last Bowel Movement 02/26/18 Narrative: GENERAL: Morbidly obese female in no acute distress. CARDIOVASCULAR: Normal rate and regular rhythm without murmurs, gallops, or rubs. RESPIRATORY: Air movement is poor. Markedly diminished breath sounds mid lung field and the bases. Occasional rales and wheezing. GASTROINTESTINAL: Abdomen soft, non-tender, non-distended. Normal active bowel sounds MUSCULOSKELETAL: Extremities with dependent edema bilaterally NEURO: Alert & Oriented x4 to person, place, time, situation. Moves all ext x4 PSYCH: Appropriate mood and affect. Results - Labs CBC & Chem 7: 02/26/18 06:11 02/26/18 06:11 Laboratory Results - last 24 hr 02/26/18 02/26/18 02/27/18 16:21 22:55 08:22 POC Glucose 109 121 H 110 02/27/18 12:30 POC Glucose 133 H Microbiology 02/24/18 18:20 Blood - Peripheral Aerobic Blood Culture - Preliminary No growth in 3 days 02/24/18 18:20 Blood - Peripheral Anaerobic Blood Culture - Preliminary No growth in 3 days 02/24/18 18:25 Blood - Peripheral Aerobic Blood Culture - Preliminary No growth in 3 days 02/24/18 18:25 Blood - Peripheral Anaerobic Blood Culture - Preliminary No growth in 3 days - Procedures NONE Assessment and Plan - Assessment (1) SIRS (systemic inflammatory response syndrome) Code(s): R65.10 - Systemic inflammatory response syndrome (SIRS) of non- infectious origin without acute organ dysfunction Status: Acute (2) COPD (chronic obstructive pulmonary disease) Code(s): J44.9 - Chronic obstructive pulmonary disease, unspecified Status: Acute (3) PNA (pneumonia) Code(s): J18.9 - Pneumonia, unspecified organism Status: Acute (4) Cellulitis of left lower limb Code(s): L03.116 - Cellulitis of left lower limb Status: Acute (5) DM (diabetes mellitus) Code(s): E11.9 - Type 2 diabetes mellitus without complications Status: Acute - Plan 67-year-old female with: Sepsis probably secondary to early atypical pneumonia and COPD exacerbation: -Continue antibiotics with Rocephin and azithromycin. -Blood cultures so far negative. -Scheduled breathing treatments. Continue steroids. -Sputum culture if she is able to expectorate. MUCINEX AND SYMBICORT WILL NEED NEBULIZER AT [place] ADD DIFLUCAN FOR FUNGAL ISSUES ARISING Acute COPD exacerbation: Continue oral steroids. Scheduled breathing treatments , Symbicort, Mucinex. - Supplemental oxygen as needed. WEAN OFF OXYGEN INCENTIVE SPIROMETRY ADD PEPCID FOR GI PROPHYLAXIS Physical deconditioning: - PT to evaluate. DM: Sliding scale w/ Accu-Cheks, check Hgb A1c. DVT Prophylaxis: Lovenox Code Status: FULL CODE Discussed Condition With: RN AND PT AND CM Discharge Planning: NEXT 24 TO 48 HOURS
[2018-02-27] MEDS ORDERED: Fluconazole 100 MG Tablet PO SCH (17:00)
[2018-02-27] MEDS: Famotidine 20 MG Tablet PO SCH (20:37)
[2018-02-27] MEDS: Azithromycin Inj 500 MG in Sodium Chlor 0.9% Inj 250 ML IV.SIG SCH (20:37)
[2018-02-28] MEDS: predniSONE 20 MG Tablet PO SCH (05:21)
[2018-02-28] MEDS: Insulin NovoLOG Aspart Correctional Sugar Inj SQ SCH ×2 (07:57→11:24)
[2018-02-28 08:19] LABS: Hematocrit 34.5 % (35.0-46.0); Hemoglobin 11.5 gm/dL (11.6-15.3); Lymph # (Auto) 1.2 th/mm3 (1.0-4.8); Lymph % (Auto) 12.6 % (9.0-44.0); Mean Corpuscular HGB Conc 33.3 % (32.0-36.0); Mean Corpuscular Hemoglobin 30.4 pg (27.0-34.0); Mean Corpuscular Volume 91.3 fL (80.0-100.0); Mono # (Auto) 0.6 th/mm3 (0.0-0.9); Mono % (Auto) 6.5 % (0.0-8.0); Neut # (Auto) 7.7 th/mm3 (1.8-7.7); Neut % (Auto) 80.9 % (16.0-70.0); Platelet Count 176 th/mm3 (150-450); Red Blood Count 3.78 mil/mm3 (4.00-5.30); Red Cell Distribution Width 14.1 % (11.6-17.2); White Blood Count 9.6 th/mm3 (4.0-11.0)
[2018-02-28] MEDS: Budesonide-Formoterol 160/4.5 MCG 6 GM Inhaler INH SCH (08:43)
[2018-02-28] MEDS: guaiFENesin 600 MG ER Tablet PO SCH (08:43)
[2018-02-28] MEDS: Famotidine 20 MG Tablet PO SCH (08:43)
[2018-02-28] MEDS: Senna/Docusate Sodium 8.6/50 MG Tablet PO SCH (08:43)
[2018-02-28] MEDS: Enoxaparin Inj 40 MG/0.4 ML Syringe SQ SCH (08:43)
[2018-02-28 08:55] LABS: Anion Gap 7 meq/L (5-15); Aspartate Aminotransferase 13 U/L (15-37); Blood Urea Nitrogen 22 mg/dL (7-18); Calcium 8.7 mg/dL (8.5-10.1); Carbon Dioxide 25.9 meq/L (21.0-32.0); Chloride 110 meq/L (98-107); Glomerular Filtration Rate 65 mL/min (>89); Glucose,Random 127 mg/dL (74-106); Magnesium 2.5 mg/dL (1.5-2.5); Potassium 4.2 meq/L (3.5-5.1); Sodium 143 meq/L (136-145)
[2018-02-28 09:08] LABS: Alanine Aminotransferase 28 U/L (10-53); Alkaline Phosphatase 67 U/L (45-117); Free T4 (Free Thyroxine) 0.92 ng/dL (0.76-1.46); Phosphorus 3.2 mg/dL (2.5-4.9); Thyroid Stimulating Hormone 0.843 uIU/mL (0.358-3.740); Total Protein 6.8 g/dL (6.4-8.2)
--- NOTE | 2018-02-28 11:45 | P.PNIM ---
Subjective Interval history: This is a 67-year-old female with a PMH of HTN, DM, COPD and Peripheral Neuropathy who presented to the ER with complaints of SOB and "chills". States symptoms have been ongoing x5 days, now progressively worse. Notes productive cough w/ green/cedeno colored sputum, +wheezing. Not on Home O2, using home MDI/ Nebulizers w/ no improvement. Denies chest pain or sick contacts. Also notes "my leg infection is back", has not been on antibiotics as outpatient. On arrival, BP 210/86, HR 95, O2 sat 94% on RA, Temp 101.4. WBC 16.9. Chemistry essentially unremarkable. Troponin negative. CXR with cardiomegaly, no other acute findings. S/p DuoNeb, Solu-Medrol and Zithro/Cefepime in ER. 02-25 Patient reports she is feeling slightly better today. Breathing more comfortable. No chest pain. 02-26 Follow-up for sepsis probably secondary to pneumonia/COPD exacerbation. Patient reports her breathing is about the same today. She reports feeling very weak. No chest pain. Required oxygen overnight, on room air this morning. 02-27 NOW OFF OXYGEN COMPLAINS OF BURNING AND ITCHING IN VAGINAL REGION WILL START DIFLUCAN STILL WHEEZING OFF OXYGEN] AM LABS [facility] HOME TOMORROW WILL NEED NEBULIZER AT DC 02-28 OFF OXYGEN WANTS TO GO HOME WILL GIVE RX FOR NEBULIZER DW RN AND PT AND CM SWITCH TO PO MEDS Physical Exam Vital signs: Vital Signs 02/27/18 12:00 02/27/18 16:00 02/27/18 16:46 Temperature 97.8 F 98.1 F Pulse Rate 70 64 65 Respiratory Rate 18 14 16 Blood Pressure 160/77 H 146/63 H Pulse Oximetry 93 L 94 L 02/27/18 20:00 02/27/18 22:22 02/28/18 00:00 Temperature 98 F 97.8 F Pulse Rate 65 62 66 Respiratory Rate 20 18 16 Blood Pressure 141/62 H 147/68 H Pulse Oximetry 95 94 L 02/28/18 03:23 02/28/18 07:00 02/28/18 08:00 Temperature 98 F 98.6 F Pulse Rate 64 56 L Respiratory Rate 16 12 20 Blood Pressure 171/77 H 185/83 H Pulse Oximetry 93 L 91 L 02/28/18 08:18 02/28/18 09:00 Temperature Pulse Rate 79 63 Respiratory Rate 20 Blood Pressure Pulse Oximetry Intake & Output 02/27/18 02/28/18 02/28/18 18:59 06:59 18:59 Intake Total 750 / 750 Balance 750 / 750 Weight 129.9 kg Intake: IV 350 / 350 Azithromycin Inj 500 MG In NS 250 / 250 Inj 250 ML @ 250 mls/hr IV.SIG Q24H RAUL Rx#:[id number] Rocephin Inj 1,000 MG In NS Inj 100 / 100 100 ML @ 200 mls/hr IV.SIG Q24H RAUL Rx#:[id number] Oral 400 / 400 Other: # Voids 4 3 Date of Last Bowel Movement 02/27/18 02/27/18 02/28/18 # Bowel Movements 1 Narrative: GENERAL: Morbidly obese female in no acute distress. CARDIOVASCULAR: Normal rate and regular rhythm without murmurs, gallops, or rubs. RESPIRATORY: Air movement is poor. Markedly diminished breath sounds mid lung field and the bases. Occasional rales and wheezing. GASTROINTESTINAL: Abdomen soft, non-tender, non-distended. Normal active bowel sounds MUSCULOSKELETAL: Extremities with dependent edema bilaterally NEURO: Alert & Oriented x4 to person, place, time, situation. Moves all ext x4 PSYCH: Appropriate mood and affect. Results - Labs CBC & Chem 7: 02/28/18 07:18 02/28/18 07:18 Laboratory Results - last 24 hr 02/27/18 02/27/18 02/27/18 12:30 17:14 20:35 WBC RBC Hgb Hct MCV MCH MCHC RDW Plt Count MPV Neut % (Auto) Lymph % (Auto) [place] % (Auto) Eos % (Auto) Baso % (Auto) Neut # (Auto) Lymph # (Auto) [place] # (Auto) Eos # (Auto) Baso # (Auto) WBC Differential Differential Comment Sodium Potassium Chloride Carbon Dioxide Anion Gap BUN Creatinine Estimated GFR POC Glucose 133 H 119 H 149 H Random Glucose Hemoglobin A1c Calcium Phosphorus Magnesium Total Bilirubin AST ALT Alkaline Phosphatase Total Protein Albumin TSH Free T4 02/28/18 02/28/18 02/28/18 07:18 07:18 07:18 WBC 9.6 RBC 3.78 L Hgb 11.5 L Hct 34.5 L MCV 91.3 MCH 30.4 MCHC 33.3 RDW 14.1 Plt Count 176 MPV 9.0 Neut % (Auto) 80.9 H Lymph % (Auto) 12.6 [place] % (Auto) 6.5 Eos % (Auto) 0.0 Baso % (Auto) 0.0 Neut # (Auto) 7.7 Lymph # (Auto) 1.2 [place] # (Auto) 0.6 Eos # (Auto) 0.0 Baso # (Auto) 0.0 WBC Differential . Differential Comment Auto diff final Sodium 143 Potassium 4.2 Chloride 110 H Carbon Dioxide 25.9 Anion Gap 7 BUN 22 H Creatinine 0.87 Estimated GFR 65 L POC Glucose Random Glucose 127 H Hemoglobin A1c 6.0 Calcium 8.7 Phosphorus 3.2 Magnesium 2.5 Total Bilirubin 0.2 AST 13 L ALT 28 Alkaline Phosphatase 67 Total Protein 6.8 Albumin 3.0 L TSH 0.843 Free T4 0.92 02/28/18 02/28/18 07:25 11:19 WBC RBC Hgb Hct MCV MCH MCHC RDW Plt Count MPV Neut % (Auto) Lymph % (Auto) [place] % (Auto) Eos % (Auto) Baso % (Auto) Neut # (Auto) Lymph # (Auto) [place] # (Auto) Eos # (Auto) Baso # (Auto) WBC Differential Differential Comment Sodium Potassium Chloride Carbon Dioxide Anion Gap BUN Creatinine Estimated GFR POC Glucose 127 H 154 H Random Glucose Hemoglobin A1c Calcium Phosphorus Magnesium Total Bilirubin AST ALT Alkaline Phosphatase Total Protein Albumin TSH Free T4 Microbiology 02/24/18 18:20 Blood - Peripheral Aerobic Blood Culture - Preliminary No growth in 4 days 02/24/18 18:20 Blood - Peripheral Anaerobic Blood Culture - Preliminary No growth in 4 days 02/24/18 18:25 Blood - Peripheral Aerobic Blood Culture - Preliminary No growth in 4 days 02/24/18 18:25 Blood - Peripheral Anaerobic Blood Culture - Preliminary No growth in 4 days - Procedures NONE Assessment and Plan - Assessment (1) SIRS (systemic inflammatory response syndrome) Code(s): R65.10 - Systemic inflammatory response syndrome (SIRS) of non- infectious origin without acute organ dysfunction Status: Acute (2) COPD (chronic obstructive pulmonary disease) Code(s): J44.9 - Chronic obstructive pulmonary disease, unspecified Status: Acute (3) PNA (pneumonia) Code(s): J18.9 - Pneumonia, unspecified organism Status: Acute (4) Cellulitis of left lower limb Code(s): L03.116 - Cellulitis of left lower limb Status: Acute (5) DM (diabetes mellitus) Code(s): E11.9 - Type 2 diabetes mellitus without complications Status: Acute - Plan 67-year-old female with: Sepsis probably secondary to early atypical pneumonia and COPD exacerbation: -Continue antibiotics with Rocephin and azithromycin. -Blood cultures so far negative. -Scheduled breathing treatments. Continue steroids. -Sputum culture if she is able to expectorate. MUCINEX AND SYMBICORT WILL NEED NEBULIZER AT DC ADD DIFLUCAN FOR FUNGAL ISSUES ARISING Acute COPD exacerbation: Continue oral steroids. Scheduled breathing treatments , Symbicort, Mucinex. - Supplemental oxygen as needed. WEAN OFF OXYGEN INCENTIVE SPIROMETRY ADD PEPCID FOR GI PROPHYLAXIS Physical deconditioning: - PT to evaluate. DM: Sliding scale w/ Accu-Cheks, check Hgb A1c. DVT Prophylaxis: Lovenox DC TO HOME ON PO MEDS HOME NEBULIZER AND HOME ANTIBIOTICS SEE RX Code Status: FULL CODE Discussed Condition With: RN AND PT AND CM Discharge Planning: DC TO HOME
--- NOTE | 2018-02-28 12:00 | P.DS ---
Date of admission: 02/25/18 00:01 Primary care physician: UNKNOWN Attending physician on discharge: Vijay Dobson Anticipated date of discharge: 02/28/18 Brief History from admission: This is a 67-year-old female with a PMH of HTN, DM, COPD and Peripheral Neuropathy who presented to the ER with complaints of SOB and "chills". States symptoms have been ongoing x5 days, now progressively worse. Notes productive cough w/ green/cedeno colored sputum, +wheezing. Not on Home O2, using home MDI/ Nebulizers w/ no improvement. Denies chest pain or sick contacts. Also notes "my leg infection is back", has not been on antibiotics as outpatient. On arrival, BP 210/86, HR 95, O2 sat 94% on RA, Temp 101.4. WBC 16.9. Chemistry essentially unremarkable. Troponin negative. CXR with cardiomegaly, no other acute findings. S/p DuoNeb, Solu-Medrol and Zithro/Cefepime in ER. Patient update on day of discharge: This is a 67-year-old female with a PMH of HTN, DM, COPD and Peripheral Neuropathy who presented to the ER with complaints of SOB and "chills". States symptoms have been ongoing x5 days, now progressively worse. Notes productive cough w/ green/cedeno colored sputum, +wheezing. Not on Home O2, using home MDI/ Nebulizers w/ no improvement. Denies chest pain or sick contacts. Also notes "my leg infection is back", has not been on antibiotics as outpatient. On arrival, BP 210/86, HR 95, O2 sat 94% on RA, Temp 101.4. WBC 16.9. Chemistry essentially unremarkable. Troponin negative. CXR with cardiomegaly, no other acute findings. S/p DuoNeb, Solu-Medrol and Zithro/Cefepime in ER. 915 Patient reports she is feeling slightly better today. Breathing more comfortable. No chest pain. 16 Follow-up for sepsis probably secondary to pneumonia/COPD exacerbation. Patient reports her breathing is about the same today. She reports feeling very weak. No chest pain. Required oxygen overnight, on room air this morning. 917 NOW OFF OXYGEN COMPLAINS OF BURNING AND ITCHING IN VAGINAL REGION WILL START DIFLUCAN STILL WHEEZING OFF OXYGEN] AM LABS [facility] HOME TOMORROW WILL NEED NEBULIZER AT DC 9-18 OFF OXYGEN WANTS TO GO HOME WILL GIVE RX FOR NEBULIZER DW RN AND PT AND CM SWITCH TO PO MEDS DS: Diagnosis - Discharge Diagnosis (1) SIRS (systemic inflammatory response syndrome) Status: Acute (2) COPD (chronic obstructive pulmonary disease) Status: Acute (3) PNA (pneumonia) Status: Acute (4) Cellulitis of left lower limb Status: Acute (5) DM (diabetes mellitus) Status: Acute DS: Medications - Discharge Medications Prescriptions: azithromycin 500 mg PO DAILY #4 tab budesonide-formoterol [Symbicort] 2 puff INH BID #1 inh cefuroxime axetil 500 mg PO Q12H #14 tab famotidine 20 mg PO BID #60 tab fluconazole 100 mg PO Q24H #5 tab guaifenesin [Mucinex] 600 mg PO BID #60 tab ipratropium-albuterol 1 amp NEB Q2HR NEB PRN #180 amp PRN Reason: SOB/WHEEZING ipratropium-albuterol [Combivent Respimat] 2 puff INHALATION Q6H PRN #1 inh PRN Reason: Shortness Of Breath Or Wheezing ipratropium-albuterol 1 amp NEB Q4HR WHILE AWAKE NEB #180 amp prednisone 20 mg PO Q8HR #90 tab DS: Summary Hospital Course: This is a 67-year-old female with a PMH of HTN, DM, COPD and Peripheral Neuropathy who presented to the ER with complaints of SOB and "chills". States symptoms have been ongoing x5 days, now progressively worse. Notes productive cough w/ green/cedeno colored sputum, +wheezing. Not on Home O2, using home MDI/ Nebulizers w/ no improvement. Denies chest pain or sick contacts. Also notes "my leg infection is back", has not been on antibiotics as outpatient. On arrival, BP 210/86, HR 95, O2 sat 94% on RA, Temp 101.4. WBC 16.9. Chemistry essentially unremarkable. Troponin negative. CXR with cardiomegaly, no other acute findings. S/p DuoNeb, Solu-Medrol and Zithro/Cefepime in ER. 02-25 Patient reports she is feeling slightly better today. Breathing more comfortable. No chest pain. 02-26 Follow-up for sepsis probably secondary to pneumonia/COPD exacerbation. Patient reports her breathing is about the same today. She reports feeling very weak. No chest pain. Required oxygen overnight, on room air this morning. 02-27 NOW OFF OXYGEN COMPLAINS OF BURNING AND ITCHING IN VAGINAL REGION WILL START DIFLUCAN STILL WHEEZING OFF OXYGEN] AM [facility]S [facility] HOME TOMORROW WILL NEED NEBULIZER AT DC 02-28 OFF OXYGEN WANTS TO GO HOME WILL GIVE RX FOR NEBULIZER DW RN AND PT AND CM SWITCH TO PO MEDS - Time Spent with Patient Total time spent providing and/or coordinating discharge services: Greater than 30 minutes - Quality: VTE Deep Vein Thrombosis/Pulmonary Embolism Present on Admission: No Exam Vital signs: Vital Signs 02/27/18 12:00 02/27/18 16:00 02/27/18 16:46 Temperature 97.8 F 98.1 F Pulse Rate 70 64 65 Respiratory Rate 18 14 16 Blood Pressure 160/77 H 146/63 H Pulse Oximetry 93 L 94 L 02/27/18 20:00 02/27/18 22:22 02/28/18 00:00 Temperature 98 F 97.8 F Pulse Rate 65 62 66 Respiratory Rate 20 18 16 Blood Pressure 141/62 H 147/68 H Pulse Oximetry 95 94 L 02/28/18 03:23 02/28/18 07:00 02/28/18 08:00 Temperature 98 F 98.6 F Pulse Rate 64 56 L Respiratory Rate 16 12 20 Blood Pressure 171/77 H 185/83 H Pulse Oximetry 93 L 91 L 02/28/18 08:18 02/28/18 09:00 Temperature Pulse Rate 79 63 Respiratory Rate 20 Blood Pressure Pulse Oximetry Intake & Output 02/27/18 02/28/18 02/28/18 18:59 06:59 18:59 Intake Total 750 / 750 Balance 750 / 750 Weight 129.9 kg Intake: IV 350 / 350 Azithromycin Inj 500 MG In NS 250 / 250 Inj 250 ML @ 250 mls/hr IV.SIG Q24H RAUL Rx#:[id number] Rocephin Inj 1,000 MG In NS Inj 100 / 100 100 ML @ 200 mls/hr IV.SIG Q24H RAUL Rx#:[id number] Oral 400 / 400 Other: # Voids 4 3 Date of Last Bowel Movement 02/27/18 02/27/18 02/28/18 # Bowel Movements 1 Narrative: GENERAL: Morbidly obese female in no acute distress. CARDIOVASCULAR: Normal rate and regular rhythm without murmurs, gallops, or rubs. RESPIRATORY: Air movement is poor. Markedly diminished breath sounds mid lung field and the bases. Occasional rales and wheezing. GASTROINTESTINAL: Abdomen soft, non-tender, non-distended. Normal active bowel sounds MUSCULOSKELETAL: Extremities with dependent edema bilaterally NEURO: Alert & Oriented x4 to person, place, time, situation. Moves all ext x4 PSYCH: Appropriate mood and affect. Results Procedures completed during hospitalization: NONE Completed studies during hospitalization: Laboratory Results WBC 9.6 th/mm3 (4.0-11.0) 02/28/18 07:18 RBC 3.78 mil/mm3 (4.00-5.30) L 02/28/18 07:18 Hgb 11.5 gm/dL (11.6-15.3) L 02/28/18 07:18 Hct 34.5 % (35.0-46.0) L 02/28/18 07:18 MCV 91.3 fL (80.0-100.0) 02/28/18 07:18 MCH 30.4 pg (27.0-34.0) 02/28/18 07:18 MCHC 33.3 % (32.0-36.0) 02/28/18 07:18 RDW 14.1 % (11.6-17.2) 02/28/18 07:18 Plt Count 176 th/mm3 (150-450) 02/28/18 07:18 MPV 9.0 fL (7.0-11.0) 02/28/18 07:18 Neut % (Auto) 80.9 % (16.0-70.0) H 02/28/18 07:18 Lymph % (Auto) 12.6 % (9.0-44.0) 02/28/18 07:18 [place] % (Auto) 6.5 % (0.0-8.0) 02/28/18 07:18 Eos % (Auto) 0.0 % (0.0-4.0) 02/28/18 07:18 Baso % (Auto) 0.0 % (0.0-2.0) 02/28/18 07:18 Neut # (Auto) 7.7 th/mm3 (1.8-7.7) 02/28/18 07:18 Lymph # (Auto) 1.2 th/mm3 (1.0-4.8) 02/28/18 07:18 [place] # (Auto) 0.6 th/mm3 (0.0-0.9) 02/28/18 07:18 Eos # (Auto) 0.0 th/mm3 (0.0-0.4) 02/28/18 07:18 Baso # (Auto) 0.0 th/mm3 (0.0-0.2) 02/28/18 07:18 WBC Differential . 02/28/18 07:18 Differential Comment Auto diff final 02/28/18 07:18 Sodium 143 meq/L (136-145) 02/28/18 07:18 Potassium 4.2 meq/L (3.5-5.1) 02/28/18 07:18 Chloride 110 meq/L (98-107) H 02/28/18 07:18 Carbon Dioxide 25.9 meq/L (21.0-32.0) 02/28/18 07:18 Anion Gap 7 meq/L (5-15) 02/28/18 07:18 BUN 22 mg/dL (7-18) H 02/28/18 07:18 Creatinine 0.87 mg/dL (0.50-1.00) 02/28/18 07:18 Estimated GFR 65 mL/min (>89) L 02/28/18 07:18 POC Glucose 154 mg/dl (68-110) H 02/28/18 11:19 Random Glucose 127 mg/dL (74-106) H 02/28/18 07:18 Hemoglobin A1c 6.0 % (4.3-6.0) 02/28/18 07:18 Lactic Acid 1.5 mmol/L (0.4-2.0) 02/24/18 18:24 Calcium 8.7 mg/dL (8.5-10.1) 02/28/18 07:18 Phosphorus 3.2 mg/dL (2.5-4.9) 02/28/18 07:18 Magnesium 2.5 mg/dL (1.5-2.5) 02/28/18 07:18 Total Bilirubin 0.2 mg/dL (0.2-1.0) 02/28/18 07:18 AST 13 U/L (15-37) L 02/28/18 07:18 ALT 28 U/L (10-53) 02/28/18 07:18 Alkaline Phosphatase 67 U/L (45-117) 02/28/18 07:18 Troponin I Less than 0.02 ng/mL (0.02-0.05) L 02/24/18 18:24 B-Natriuretic Peptide 51 pg/mL (0-100) 02/24/18 18:24 Total Protein 6.8 g/dL (6.4-8.2) 02/28/18 07:18 Albumin 3.0 g/dL (3.4-5.0) L 02/28/18 07:18 TSH 0.843 uIU/mL (0.358-3.740) 02/28/18 07:18 Free T4 0.92 ng/dL (0.76-1.46) 02/28/18 07:18 Urine Color Yellow (Yellw/Straw) 02/25/18 03:30 Urine Clarity Clear (Clear) 02/25/18 03:30 Urine pH 5.0 (5.0-8.5) 02/25/18 03:30 Ur Specific [place] 1.012 (1.002-1.035) 02/25/18 03:30 Urine Protein Negative mg/dL (Neg-Trace) 02/25/18 03:30 Urine Glucose (UA) Negative mg/dL (Negative) 02/25/18 03:30 Urine Ketones Negative mg/dL (Negative) 02/25/18 03:30 Urine Occult Blood Negative (Negative) 02/25/18 03:30 Urine Nitrate Negative (Negative) 02/25/18 03:30 Urine Bilirubin Negative (Negative) 02/25/18 03:30 Urine Urobilinogen Less than 2 mg/dL (Less than 2) 02/25/18 03:30 Ur Leukocyte Esterase Negative (Negative) 02/25/18 03:30 Urine RBC Less than 1 /hpf (0-3) 02/25/18 03:30 Urine WBC 1 /hpf (0-5) 02/25/18 03:30 Ur Squamous Epith Cells <1 /hpf (0-5) 02/25/18 03:30 Urine Mucus Few /lpf (Occasional) H 02/25/18 03:30 Micro UA Comment Culture not ind 02/25/18 03:30 Ur Microscopic Review Not Reportable 02/25/18 03:30 Urine Culture Comments Culture not ind 02/25/18 03:30 Impressions Chest X-Ray 02/24/18 18:15 CONCLUSION: Cardiomegaly without appreciable pulmonary vascular engorgement. Labs on day of discharge: Labs from last 24 hours 02/28/18 02/28/18 02/28/18 11:19 07:25 07:18 WBC RBC Hgb Hct MCV MCH MCHC RDW Plt Count MPV Neut % (Auto) Lymph % (Auto) [place] % (Auto) Eos % (Auto) Baso % (Auto) Neut # (Auto) Lymph # (Auto) [place] # (Auto) Eos # (Auto) Baso # (Auto) WBC Differential Differential Comment Sodium 143 Potassium 4.2 Chloride 110 H Carbon Dioxide 25.9 Anion Gap 7 BUN 22 H Creatinine 0.87 Estimated GFR 65 L POC Glucose 154 H 127 H Random Glucose 127 H Hemoglobin A1c Calcium 8.7 Phosphorus 3.2 Magnesium 2.5 Total Bilirubin 0.2 AST 13 L ALT 28 Alkaline Phosphatase 67 Total Protein 6.8 Albumin 3.0 L TSH 0.843 Free T4 0.92 02/28/18 02/28/18 02/27/18 07:18 07:18 20:35 WBC 9.6 RBC 3.78 L Hgb 11.5 L Hct 34.5 L MCV 91.3 MCH 30.4 MCHC 33.3 RDW 14.1 Plt Count 176 MPV 9.0 Neut % (Auto) 80.9 H Lymph % (Auto) 12.6 [place] % (Auto) 6.5 Eos % (Auto) 0.0 Baso % (Auto) 0.0 Neut # (Auto) 7.7 Lymph # (Auto) 1.2 [place] # (Auto) 0.6 Eos # (Auto) 0.0 Baso # (Auto) 0.0 WBC Differential . Differential Comment Auto diff final Sodium Potassium Chloride Carbon Dioxide Anion Gap BUN Creatinine Estimated GFR POC Glucose 149 H Random Glucose Hemoglobin A1c 6.0 Calcium Phosphorus Magnesium Total Bilirubin AST ALT Alkaline Phosphatase Total Protein Albumin TSH Free T4 02/27/18 02/27/18 17:14 12:30 WBC RBC Hgb Hct MCV MCH MCHC RDW Plt Count MPV Neut % (Auto) Lymph % (Auto) [place] % (Auto) Eos % (Auto) Baso % (Auto) Neut # (Auto) Lymph # (Auto) [place] # (Auto) Eos # (Auto) Baso # (Auto) WBC Differential Differential Comment Sodium Potassium Chloride Carbon Dioxide Anion Gap BUN Creatinine Estimated GFR POC Glucose 119 H 133 H Random Glucose Hemoglobin A1c Calcium Phosphorus Magnesium Total Bilirubin AST ALT Alkaline Phosphatase Total Protein Albumin TSH Free T4 Preliminary micro results at discharge 02/24/18 18:20 Aerobic Blood Culture - Preliminary Blood - Peripheral No growth in 4 days Anaerobic Blood Culture - Preliminary No growth in 4 days 02/24/18 18:25 Aerobic Blood Culture - Preliminary Blood - Peripheral No growth in 4 days Anaerobic Blood Culture - Preliminary No growth in 4 days - Impressions ITS Impressions Chest X-Ray 02/24/18 18:15 CONCLUSION: Cardiomegaly without appreciable pulmonary vascular engorgement. Discharge Plan - Discharge Disposition Patient Disposition: 01 Discharge Home - Discharge Condition Condition: Good - Discharge Order Discharge Orders: Discharge Order (Routine); Ordered 02/28/18 Ordered By: Vijay Dobson - Discharge Details Anticipated Discharge Date: 02/28/18 Discharge Comment: DC TO HOME TODAY - Physicians Team Primary Care Provider: UNKNOWN, Attending Provider: Vijay Dobson
[2018-02-28 12:01] VITALS: RESP 22
[2018-02-28 12:27] VITALS: PULSE 67
[2018-02-28 12:50] VITALS: BP 184/92; TEMP 97.5; O2SAT 95
== END 2018-02-28 13:00 | disposition home or self-care (01) ==
LOC: NEPC 18:00 → NEDA 02-25 00:01 → N05 02-25 01:52
PROVIDERS: ADMIT Hospitalist; ATTEND Hospitalist